=== PATIENT | female | born 1945 | race Hispanic/Latino ===

== ENCOUNTER → 2017-09-13 14:15 | Outpatient (CLI) | payer OTHER, SELFPAY | PROVIDERS: Family Provider Physician Assistant; PCP Physician Assistant; Visit Provider Physician Assistant | DX: R10.2 Pelvic and perineal pain (principal); R10.9 Unspecified abdominal pain; R14.0 Abdominal distension (gaseous) | CPT/HCPCS: 87086 ==

== ENCOUNTER → 2017-09-26 07:31 | Outpatient (CLI) | payer OTHER, SELFPAY ==
--- NOTE | 2017-09-26 07:35 | DI.US.S_ITS ---
PROCEDURE: US ABDOMEN COMPLETE INDICATIONS: BLOATING TECHNIQUE: Real-time scanning was performed of the abdominal and retroperitoneal organs, with image documentation. COMPARISON: None. FINDINGS: Liver: Liver is normal in size and homogeneous in echotexture, moderately hyperechoic consistent with fatty infiltration. Gallbladder: The gallbladder appears normal. Biliary ducts: Intrahepatic bile ducts are non-dilated. Extrahepatic bile duct caliber measures 8.3 mm. Normal is 6-7 mm or less in diameter, or 10 mm or less post-cholecystectomy. Pancreas: Visualized portions of the pancreas are sonographically normal. Spleen: Spleen is normal in size and homogeneous in echotexture. Kidneys: Kidneys are normal in size and echotexture. Right kidney measures 10.4 cm long; left kidney measures 10.1 cm long. No hydronephrosis or nephrolithiasis. No solid masses. Aorta: Visualized aorta is normal in caliber at less than 3 cm. Iliacs: Not seen due to bowel gas IVC: Intrahepatic inferior vena cava is patent. Miscellaneous: No free abdominal fluid. IMPRESSION: The common bile duct at 8.3 mm and is mildly above the upper limits of normal for a patient with known prior cholecystectomy. Follow up assessment for liver function tests may be warranted given this appearance. Nonvisualization of the iliac arteries due to bowel gas. Dictated by: Jim Andrade M.D. on 09/26/2017 at 8:27 Approved by: Jim Andrade M.D. on 09/26/2017 at 8:30
--- NOTE | 2017-09-26 07:35 | DI.US.S_ITS ---
PROCEDURE: US PELVIC COMPLETE INDICATIONS: BLOATING TECHNIQUE: Real-time scanning was performed of the pelvic organs, with image documentation. Additional endovaginal scanning was necessary due to incomplete visualization of the adnexal and endometrial structures by transabdominal scanning. COMPARISON: None. FINDINGS: Transabdominal scanning: Limited scanning through the kidneys shows no hydronephrosis. No pathologic free abdominal or pelvic fluid. Endovaginal scanning: Uterus: Uterus is normal in size at 5.5 x 2.6 x 4.4 cm. The endometrium measures 2.0 mm in combined thickness. 1.0 x 0.5 x 1.5 cm solid-appearing rounded endometrial mass present suspicious retained blood products, endometrial polyp or other neoplastic process. 6 mm posterior intramural fibroid. Ovaries: Normal ovaries bilaterally. No intraperitoneal fluid seen or adnexal masses. IMPRESSION: 1. 1.1 cm solid-appearing endometrial mass present which may represent retained blood products, although endometrial polyp or other neoplastic processes cannot be excluded. Recommend short-term followup pelvic ultrasound in 6 weeks to assess for interval resolution. If the mass persists, pre and post contrast gynecologic protocol MRI could be performed or alternatively hysterosonography for further characterization. 2. 6 mm intramural fibroid. Dictated by: Júnior MARTINEZ Interpreted: Hetal Peck MD on 09/26/2017 at 9:19 Approved by: Hetal Peck MD, PhD on 09/26/2017 at 13:49
== END ==
PROVIDERS: Family Provider Physician Assistant; PCP Physician Assistant; Visit Provider Physician Assistant
DX: R14.0 Abdominal distension (gaseous) (principal); D25.1 Intramural leiomyoma of uterus; Z90.49 Acquired absence of other specified parts of digestive tract; N85.9 Noninflammatory disorder of uterus, unspecified; R10.2 Pelvic and perineal pain; R10.10 Upper abdominal pain, unspecified
CPT/HCPCS: 76700; 76830; 76856

== ENCOUNTER → 2017-10-04 08:54 | Outpatient (CLI) | payer OTHER, SELFPAY ==
[2017-10-04 09:00] LABS: Bacteria Urine None Seen; RBC Urine None Seen (0-5/HPF)
[2017-10-04 12:30] LABS: Appearance Urine UA CLEAR; Bilirubin Urine UA NEGATIVE (NEGATIVE); Color Urine UA YELLOW; Glucose Urine UA NEGATIVE (Normal); Ketones Urine UA NEGATIVE (NEGATIVE); Leukocyte Esterase Urine UA NEGATIVE (NEGATIVE); Nitrite Urine UA Negative (Negative); Occult Blood Urine UA NEGATIVE (Negative); Protein Urine UA NEGATIVE (Negative); Urobilinogen Urine UA 0.2 E.U./dL (0.2)
[2017-10-04 12:59] LABS: Squamous Epithelial Cell Urine 0-1 /HPF; WBC Urine 0-1/HPF (0-5/HPF)
[2017-10-04 13:00] LABS: Culture Indicated Urine Cult Not Indicated
== END ==
PROVIDERS: PCP Physician Assistant; Visit Provider Obstetrics & Gynecology
DX: R10.2 Pelvic and perineal pain (principal); R32 Unspecified urinary incontinence; R33.9 Retention of urine, unspecified
CPT/HCPCS: 81001

== ENCOUNTER → 2017-10-16 11:36 | Outpatient (CLI) | payer OTHER, SELFPAY | PROVIDERS: Family Provider Physician Assistant; PCP Physician Assistant; Visit Provider Physician Assistant | DX: R30.0 Dysuria (principal) | CPT/HCPCS: 87086 ==

== ENCOUNTER → 2017-10-17 13:00 | Outpatient (CLI) | payer OTHER, SELFPAY | PROVIDERS: PCP Physician Assistant | DX: Z23 Encounter for immunization (principal) | CPT/HCPCS: 90471; 90662 ==

== ENCOUNTER → 2017-10-27 13:55 | Outpatient (CLI) | payer OTHER, SELFPAY ==
--- NOTE | 2017-10-27 | DI.MG.S_ITS ---
BILATERAL DIGITAL SCREENING MAMMOGRAM 3D/2D WITH CAD: 10/27/2017 CLINICAL: Routine screening. Comparison is made to exams dated: 02/29/2016 mammogram, 01/26/2015 mammogram, and 01/17/2014 mammogram - [facility]. There are scattered fibroglandular elements in both breasts. Current study was also evaluated with a Computer Aided Detection (CAD) system. No significant masses, calcifications, or other findings are seen in either breast. There has been no significant interval change. IMPRESSION: NEGATIVE There is no mammographic evidence of malignancy. A 1 year screening mammogram is recommended. This exam was interpreted at Station ID: [id number]. NOTE: For mammograms, a report in lay terms will be sent to the patient. Approximately 15% of breast malignancies will not be visualized mammographically. In the management of a palpable breast mass, a negative mammogram must not discourage biopsy of a clinically suspicious lesion. Electronically Signed By: Sara billings/louise:10/27/2017 15:08:23 letter sent: Normal Exam ACR BI-RADS Category 1: Negative [id number]
== END ==
PROVIDERS: Family Provider Physician Assistant; PCP Physician Assistant; Visit Provider Physician Assistant
DX: Z12.31 Encounter for screening mammogram for malignant neoplasm of breast (principal)
CPT/HCPCS: 77063; 77067

== ENCOUNTER → 2017-12-01 10:08 | Day surgery (SDC) | payer OTHER, SELFPAY ==
[2017-11-27 13:39] VITALS: BMI 40.6
--- NOTE | 2018-02-16 10:08 | PM.HP.1 ---
History of Present Illness Date Patient Seen: 12/01/17 Time Patient Seen: 11:15 Chief complaint: [place] [id number] Narrative: Patient is a 72-year-old with a uterine mass by ultrasound here for a D&C hysteroscopy and resection of mass Patient History Medical History Colitis (Acute) Endometrial mass (Acute) History of headache (Acute) Morbid obesity (Acute) Pelvic pain (Acute) Postmenopausal (Acute) Cataract, left eye (Chronic ~05/2012) GERD (gastroesophageal reflux disease) (Chronic Unknown) Hemorrhoids (Chronic) Hx of varicose veins (Chronic Unknown) Hypothyroidism (Chronic Unknown) IBS (irritable bowel syndrome) (Chronic Unknown) Migraines (Chronic Unknown) Positive PPD (Chronic Unknown) Surgical History Hx of surgical procedure (Resolved 02/2017) Family & Social History Tobacco & Substance use: Smoking Status Never smoker alcohol intake never Meds Home Medications Medication Instructions Recorded Confirmed Type Homeopathic Substance (PASSION 250 mg PO PRN PRN #0 01/03/12 01/04/18 History FLOWER) levothyroxine 112 mcg PO Q DAY #90 tab 05/29/17 01/04/18 Rx ibuprofen 800 mg tablet 800 mg PO Q8H #90 tab 10/18/17 01/04/18 Rx codeine 10 mg-guaifenesin 100 mg/5 5 ml PO BEDTIME PRN #120 ml 11/08/17 01/04/18 Rx mL oral liquid pneumococcal 13-makayla conj 0.5 ml IM X1 #1 ea 11/20/17 01/04/18 Rx vaccine-dip crm (PF) 0.5 mL IM syringe varicella-zoster glycoE vacc-AS01B 50 mcg IM ONCE #1 each 11/20/17 01/04/18 Rx adj(PF) 50 mcg/0.5 mL IM susp, kit ondansetron 4 mg PO PRN 12/05/17 01/04/18 History hydrochlorothiazide 25 mg tablet 25 mg PO DAILY #30 tab 01/31/18 Rx Allergies Allergy/AdvReac Type Severity Reaction Status Date / Time oxycodone AdvReac Severe tremors, Verified 01/04/18 11:25 numbness, itching metronidazole AdvReac Mild DIZZINESS Unverified 01/04/18 10:30 Exam Vital Signs (past 8 hours): HEENT: No thyromegaly, no anterior cervical or supraclavicular lymphadenopathy. Lungs:Clear to auscultation bilaterally, no wheezes. Cardiovascular: Regular rate and rhythm, no murmurs, rubs, or gallops. Abdomen: No scars. No hepatosplenomegaly. No masses palpable. External genitalia: Normal Vagina: Normal Cervix: Normal Bimanual exam: 7 Week size uterus. Mobile. Rectal: No masses. Assessment & Plan (1) Uterine mass: Current visit: No Status: Acute Plan: Assessment/Plan Narrative: Assessment: 72 year with a uterine mass by ultrasound Plan: D&C hysteroscopy with resection of mass The risks, benefits, and alternatives to the procedure were explained to the patient. The risks including bleeding, infection, and uterine perforation. She understands these risks and agrees to proceed. A full PAR-Q was held and consent form was signed.
== END ==
PROVIDERS: Family Provider Physician Assistant; PCP Physician Assistant; Visit Provider Obstetrics & Gynecology

== ENCOUNTER 2017-12-08 09:47 | Day surgery (SDC) | payer OTHER, SELFPAY ==
[2017-12-05 08:17] VITALS: BMI 40.5
[2017-12-08] VITALS (7 sets, daily range): BP systolic 133–182; BP diastolic 70–107; PULSE 65–100; RESP 16–20; TEMP 36.3–37.1; O2SAT 92–97; BMI 39.9
--- NOTE | 2017-12-08 | PATH_ITS ---
[facility] Accession Number: [id number] . 01 Material submitted: . ENDOMETRIAL POLYPS . 02 Diagnosis: Endometrial Polyps: Fragments of endometrium with extensive cautery artifact, cannot exclude endometrial polyp. Fragments of myometrium with features suggestive of leiomyoma. No evidence of atypical hyperplasia or malignancy. MRV/12/11/2017 . 02 Electronically signed: . Gautam Cook MD, PhD, Pathologist NPI- [id number] . 01 Gross description: . Received one formalin-filled container, labeled with the patient's name and labeled endometrial polyps. The specimen consists of approximately a 0.5 cc aggregate of tissue and mucoid material. Filtered, wrapped and entirely submitted in one cassette. ([facility]:[id number]) /MRV . 02 Pathologist provided ICD-10: N84.0 . 02 CPT . 273215 Specimen Comment: A duplicate report has been generated due to demographic updates. Performed at: 01 [facility] [address] [facility], [place], [place] [id number] MD Brendon Hoyt MD Phone: [phone] Performed at: 02 [facility] [address] [place], [place] [id number] MD Tray Koehler MD Phone: [phone]
--- NOTE | 2017-12-08 10:21 | SUR.PREOP ---
Language barrier noted. Able to answer most questions, but difficulty with some. Not a reliable historian.
[2017-12-08] MEDS: LACTATED RINGERS 1,000 ML 100 ML IV (10:24)
[2017-12-08] MEDS: FAMOTIDINE 20 MG/50 ML PIGGYBACK 200 MG IV (10:53)
--- NOTE | 2017-12-08 11:10 | SUR.OPER ---
Lithotomy on padded OR bed, head on pillow, arms secured on padded arm boards at <90 degrees abduction. Legs secured in padded yellow fins stirrups.
--- NOTE | 2017-12-08 11:46 | SUR.PHASEI ---
report given to Tracy Gallardo RN
[2017-12-08] MEDS: fentaNYL 100 MCG/2 ML INJ 25 MCG IV ×4 (11:55→12:10)
--- NOTE | 2017-12-11 09:50 | PM.PREOP ---
Pre-operative Note Interval Note Pre-op Check: Yes History & Physical Reviewed by Physician Changes: No
--- NOTE | 2017-12-11 09:51 | PM.GYNOP.1 ---
Procedure: Procedures Operation Date: 12/08/17 11:15 Actual Procedures Side Surgeon p Hysteroscopy D&C-Resection of mass Chantal Blackwell MD D&C Hysteroscopy with resection of polyps Indications: Pelvic pain Uterine mass on ultrasound Surgeon: Chantal Blackwell Anesthesia Type: General Operative Notes Findings: 8 week size anteverted uterus 2 uterine polyps on the anterior wall Arcuate uterus Closure Type: not applicable Specimen(s): other (Uterine polyp) Applied: catheter (In and out) Estimated blood loss (mL): 10 Blood products transfused: none Procedure in detail: After informed consent was obtained, the patient was taken to the operating room where she was placed in the dorsal supine position. After adequate LMA general anesthesia was achieved, she was placed in the dorsal lithotomy position, and prepped and draped in the usual sterile fashion. A bivalve speculum was placed into the vagina and the anterior lip of the cervix grasped with a single-tooth tenaculum. The cervical os was sequentially dilated until the hysteroscope could pass easily into the endometrial cavity. Initial inspection with the hysteroscope revealed 2 polyps in the right portion of the uterus on the anterior uterine wall. Patient had an arcuate uterus with a wide septum coming down in the middle. The left side of the uterus had no polyps. The hysteroscope was removed. The cervix was further dilated to the #9 Hegar dilator. The resectoscope passed easily into the endometrial cavity. Both polyps were resected. Hemostasis was achieved. Settings were 60 cut and 40 cautery. The resectoscope was removed from the uterus. The polyp forceps were used to remove the polyp pieces from the uterus. These were all sent to pathology. There was minimal amount of bleeding from the uterus. The single-tooth tenaculum was removed from the anterior lip of the cervix. The bivalve speculum was removed from the vagina. Sponge, lap, and instrument counts were correct x2. Patient tolerated the procedure well, and was taken to PACU in stable condition. Complications: none Post-operative Condition: stable Disposition: PACU Plan for aftercare: Home after recovery
--- NOTE | 2017-12-11 09:55 | P.OP_ITS ---
Procedure: Procedures Operation Date: 12/08/17 11:15 Actual Procedures Side Surgeon p Hysteroscopy D&C-Resection of mass Chantal Blackwell MD D&C Hysteroscopy with resection of polyps Indications: Pelvic pain Uterine mass on ultrasound Surgeon: Chantal Blackwell Anesthesia Type: General Operative Notes Findings: 8 week size anteverted uterus 2 uterine polyps on the anterior wall Arcuate uterus Closure Type: not applicable Specimen(s): other (Uterine polyp) Applied: catheter (In and out) Estimated blood loss (mL): 10 Blood products transfused: none Procedure in detail: After informed consent was obtained, the patient was taken to the operating room where she was placed in the dorsal supine position. After adequate LMA general anesthesia was achieved, she was placed in the dorsal lithotomy position, and prepped and draped in the usual sterile fashion. A bivalve speculum was placed into the vagina and the anterior lip of the cervix grasped with a single-tooth tenaculum. The cervical os was sequentially dilated until the hysteroscope could pass easily into the endometrial cavity. Initial inspection with the hysteroscope revealed 2 polyps in the right portion of the uterus on the anterior uterine wall. Patient had an arcuate uterus with a wide septum coming down in the middle. The left side of the uterus had no polyps. The hysteroscope was removed. The cervix was further dilated to the # 9 Hegar dilator. The resectoscope passed easily into the endometrial cavity. Both polyps were resected. Hemostasis was achieved. Settings were 60 cut and 40 cautery. The resectoscope was removed from the uterus. The polyp forceps were used to remove the polyp pieces from the uterus. These were all sent to pathology. There was minimal amount of bleeding from the uterus. The single- tooth tenaculum was removed from the anterior lip of the cervix. The bivalve speculum was removed from the vagina. Sponge, lap, and instrument counts were correct x2. Patient tolerated the procedure well, and was taken to PACU in stable condition. Complications: none Post-operative Condition: stable Disposition: PACU Plan for aftercare: Home after recovery
--- NOTE | 2018-02-16 11:01 | PM.HP.1 ---
History of Present Illness Date Patient Seen: 12/08/17 Time Patient Seen: 11:00 Chief complaint: d&c hysteroscopy [id number] Narrative: Patient is a 72-year-old who presents for D&C hysteroscopy with resection of uterine mass seen on ultrasound. Patient History Medical History Colitis (Acute) Endometrial mass (Acute) History of headache (Acute) Morbid obesity (Acute) Pelvic pain (Acute) Postmenopausal (Acute) Cataract, left eye (Chronic ~05/2012) GERD (gastroesophageal reflux disease) (Chronic Unknown) Hemorrhoids (Chronic) Hx of varicose veins (Chronic Unknown) Hypothyroidism (Chronic Unknown) IBS (irritable bowel syndrome) (Chronic Unknown) Migraines (Chronic Unknown) Positive PPD (Chronic Unknown) Surgical History Hx of surgical procedure (Resolved 02/2017) Family & Social History Social History: household members family Tobacco & Substance use: Smoking Status Never smoker alcohol intake never Meds Home Medications Medication Instructions Recorded Confirmed Type Homeopathic Substance (PASSION 250 mg PO PRN PRN #0 01/03/12 01/04/18 History FLOWER) levothyroxine 112 mcg PO Q DAY #90 tab 05/29/17 01/04/18 Rx ibuprofen 800 mg tablet 800 mg PO Q8H #90 tab 10/18/17 01/04/18 Rx codeine 10 mg-guaifenesin 100 mg/5 5 ml PO BEDTIME PRN #120 ml 11/08/17 01/04/18 Rx mL oral liquid pneumococcal 13-makayla conj 0.5 ml IM X1 #1 ea 11/20/17 01/04/18 Rx vaccine-dip crm (PF) 0.5 mL IM syringe varicella-zoster glycoE vacc-AS01B 50 mcg IM ONCE #1 each 11/20/17 01/04/18 Rx adj(PF) 50 mcg/0.5 mL IM susp, kit ondansetron 4 mg PO PRN 12/05/17 01/04/18 History hydrochlorothiazide 25 mg tablet 25 mg PO DAILY #30 tab 01/31/18 Rx Allergies Allergy/AdvReac Type Severity Reaction Status Date / Time oxycodone AdvReac Severe tremors, Verified 01/04/18 11:25 numbness, itching metronidazole AdvReac Mild DIZZINESS Unverified 01/04/18 10:30 Exam Vital Signs (past 8 hours): Oxygen Delivery Method Room Air Narrative Exam Narrative: HEENT: No thyromegaly, no anterior cervical or supraclavicular lymphadenopathy. Lungs:Clear to auscultation bilaterally, no wheezes. Cardiovascular: Regular rate and rhythm, no murmurs, rubs, or gallops. Abdomen: No scars. No hepatosplenomegaly. No masses palpable. External genitalia: Normal Vagina: Normal Cervix: Normal Bimanual exam: 7 Week size uterus. Mobile. Rectal: No masses]. Assessment & Plan (1) Uterine mass: Current visit: No Status: Acute Plan: Assessment/Plan Narrative: Assessment: 72-year-old with a uterine mass on ultrasound Plan: D&C hysteroscopy with resection of mass The risks, benefits, and alternatives to the procedure were explained to the patient. The risks including bleeding, infection, and uterine perforation. She understands these risks and agrees to proceed. A full PAR-Q was held and consent form was signed.
== END 2017-12-08 12:49 | disposition home or self-care (01) ==
PROVIDERS: PCP Physician Assistant; Visit Provider Obstetrics & Gynecology
PROC: 0UDB8ZZ Extraction of Endometrium, Via Natural or Artificial Opening Endoscopic (ICD-10-PCS; CPT 58558; principal; 2017-12-08 11:15)
DX: R10.2 Pelvic and perineal pain (principal); R93.89 Abnormal findings on diagnostic imaging of other specified body structures; N84.0 Polyp of corpus uteri; E66.9 Obesity, unspecified; E03.9 Hypothyroidism, unspecified; K21.9 Gastro-esophageal reflux disease without esophagitis
CPT/HCPCS: 58558; J0330; J1100; J1885; J2405; J2704; J3010

== ENCOUNTER → 2018-05-23 17:53 | Outpatient (CLI) | payer OTHER, SELFPAY ==
[2018-05-23 19:43] LABS: Alanine Aminotransferase 58 IU/L (9-52); Albumin 4.4 g/dL (3.5-5.0); Albumin Globulin Ratio 1.5 (1.0-2.8); Alkaline Phosphatase 116 U/L (38-126); Aspartate Aminotransferase 43 IU/L (14-36); BUN Creatinine Ratio 42.9 (6-22); Bilirubin Total 0.4 mg/dL (0.2-1.3); Blood Urea Nitrogen 30 mg/dL (7-17); Calcium 9.3 mg/dL (8.4-10.2); Carbon Dioxide 26 mmol/L (22-32); Chloride 107 mmol/L (98-107); Cholesterol 159 mg/dL (140-199); Estimated Glomerular Filt Rate > 60.0 mL/min (>60); Glucose 103 mg/dL (80-110); HDL Cholesterol 39 mg/dL (40-60); HEMOLYSIS < 15 (0-50); LDL Cholesterol Calculated 69 mg/dL (<100); Potassium 4.6 mmol/L (3.4-5.1); Sodium 143 mmol/L (137-145); Total Protein 7.4 g/dL (6.3-8.2); Triglycerides 255 mg/dL (35-150)
[2018-05-23 20:13] LABS: Thyroid Stimulating Hormone 1.73 uIU/mL (0.47-4.68)
== END ==
PROVIDERS: PCP Physician Assistant; Visit Provider Physician Assistant
DX: E03.9 Hypothyroidism, unspecified (principal); E66.01 Morbid (severe) obesity due to excess calories; Z13.220 Encounter for screening for lipoid disorders; Z13.6 Encounter for screening for cardiovascular disorders; Z68.41 Body mass index [BMI] 40.0-44.9, adult
CPT/HCPCS: 36415; 80053; 80061; 84443

== ENCOUNTER → 2018-06-04 09:03 | Outpatient (CLI) | payer OTHER, SELFPAY ==
[2018-06-05 16:35] LABS: Creatinine Urine Random 49.7 mg/dL
[2018-06-05 17:03] LABS: Microalbumin Urine Random < 0.6 mg/dL (0-1.6)
== END ==
PROVIDERS: PCP Physician Assistant; Visit Provider Physician Assistant
DX: R79.89 Other specified abnormal findings of blood chemistry (principal); R79.9 Abnormal finding of blood chemistry, unspecified
CPT/HCPCS: 82043; 82570

== ENCOUNTER → 2018-11-01 14:30 | Outpatient (CLI) | payer OTHER, SELFPAY ==
[2018-11-01 14:46] LABS: Bacteria Urine None Seen; WBC Urine None Seen (0-5/HPF)
[2018-11-01 15:32] LABS: Add Manual Diff / Slide Review NO; Basophils Absolute Auto 100 /uL (0-100); Basophils Percent Auto 0.7 % (0-2); Eosinophils Absolute Auto 400 /uL (0-450); Eosinophils Percent Auto 4.3 % (2-4); Hematocrit 42.6 % (36-46); Hemoglobin 14.5 g/dL (12.0-16.0); Lymphocytes Absolute Auto 2300 /uL (1100-4500); Lymphocytes Percent Auto 27.8 % (25-40); Mean Corpuscular HGB Conc 34.1 % (30-36); Mean Corpuscular Hemoglobin 28.6 PG (26-34); Mean Corpuscular Volume 84.1 fL (80-100); Monocytes Absolute Auto 800 /uL (0-900); Monocytes Percent Auto 9.5 % (3-14); Neutrophils Absolute Auto 4700 /uL (1500-7000); Neutrophils Percent Auto 57.7 % (50-75); Platelet Count 222 X10^3/uL (150-400); Red Blood Cell Count 5.07 X10^6/uL (4.0-5.2); Red Cell Distribution Width 14.4 % (11.6-14.8); White Blood Cell Count 8.2 X10^3/uL (4.5-11.0)
[2018-11-01 15:32] LABS: Appearance Urine UA CLEAR; Bilirubin Urine UA NEGATIVE (NEGATIVE); Color Urine UA YELLOW; Glucose Urine UA NEGATIVE (Negative); Ketones Urine UA NEGATIVE (NEGATIVE); Leukocyte Esterase Urine UA NEGATIVE (NEGATIVE); Nitrite Urine UA NEGATIVE (Negative); Occult Blood Urine UA TRACE-LYSED (Negative); Protein Urine UA NEGATIVE (Negative); Urobilinogen Urine UA 0.2 E.U./dL (0.2)
[2018-11-01 15:33] LABS: pH Urine UA 5.5 (4.5-8.0)
[2018-11-01 15:35] LABS: Culture Indicated Urine Cult Not Indicated; RBC Urine 5-10/HPF (0-5/HPF); Squamous Epithelial Cell Urine 1-5 /HPF (0-5/HPF)
[2018-11-01 16:02] LABS: Alanine Aminotransferase 57 IU/L (9-52); Albumin 4.3 g/dL (3.5-5.0); Albumin Globulin Ratio 1.3 (1.0-2.8); Alkaline Phosphatase 98 U/L (38-126); Amylase 74 U/L (30-110); Aspartate Aminotransferase 42 IU/L (14-36); BUN Creatinine Ratio 38.3 (6-22); Bilirubin Total 0.5 mg/dL (0.2-1.3); Blood Urea Nitrogen 23 mg/dL (7-17); Calcium 9.7 mg/dL (8.4-10.2); Carbon Dioxide 29 mmol/L (22-32); Chloride 101 mmol/L (98-107); Estimated Glomerular Filt Rate > 60.0 mL/min (>60); Globulin 3.2 g/dL (1.7-4.1); Glucose 92 mg/dL (80-110); HEMOLYSIS < 15 (0-50); Lipase 129 U/L (23-300); Potassium 3.9 mmol/L (3.4-5.1); Sodium 142 mmol/L (137-145); Total Protein 7.5 g/dL (6.3-8.2)
== END ==
PROVIDERS: PCP Physician Assistant; Visit Provider Nurse Practitioner Family
DX: Z00.00 Encounter for general adult medical examination without abnormal findings (principal); R10.11 Right upper quadrant pain; R10.30 Lower abdominal pain, unspecified
CPT/HCPCS: 36415; 80053; 81001; 82150; 83690; 85025

== ENCOUNTER → 2018-11-14 08:14 | Outpatient (CLI) | payer OTHER, SELFPAY ==
--- NOTE | 2018-11-14 08:14 | DI.US.S_ITS ---
PROCEDURE: US ABDOMEN COMPLETE INDICATIONS: PAIN TECHNIQUE: Real-time scanning was performed of the abdominal and retroperitoneal organs, with image documentation. COMPARISON: [place], [place], HEPATOBILIARY IMAGING, 03/04/2010, 11:17. [facility], , US ABDOMEN COMPLETE, 09/26/2017, 7:39. FINDINGS: Liver: The liver demonstrates normal size. The liver demonstrates generalized increased echogenicity. This decreases ultrasound sensitivity for detection of hepatic masses. Gallbladder: No findings of gallstones or sludge are seen. The gallbladder wall is not thickened, measuring 3 mm or less. No specific pericholecystic fluid is seen. The sonographic Fox sign is negative. Biliary ducts: Biliary dilatation is again seen, with the common bile measuring 9 mm. Normal is 6-7 mm or less in diameter, or 10 mm or less post-cholecystectomy. Pancreas: Visualized portions of the pancreas are sonographically normal. Spleen: Spleen is normal in size and homogeneous in echotexture. Kidneys: Kidneys are normal in size and echotexture. Right kidney measures 11.4 cm long; left kidney measures 11.5 cm long. No hydronephrosis or nephrolithiasis. No solid masses. Aorta: Visualized aorta is normal in caliber at less than 3 cm. Iliacs: Not seen, obscured by overlying bowel gas. IVC: Intrahepatic inferior vena cava is patent. Miscellaneous: No free abdominal fluid. IMPRESSION: Biliary dilatation is again seen, which is similar to the prior 2018 ultrasound examination, with the common bile duct now measuring 9 mm. As clinically appropriate, an MRCP could be considered for further evaluation (assuming that there is no contraindication to MRI). The gallbladder demonstrates a normal sonographic appearance. The liver demonstrates increased echogenicity. This finding is nonspecific, yet it is most commonly attributed to fatty infiltration. Dictated by: Tomasz Jara M.D. on 11/14/2018 at 8:13 Approved by: Tomasz Jara M.D. on 11/14/2018 at 8:14
== END ==
PROVIDERS: PCP Physician Assistant; Visit Provider Nurse Practitioner Family
DX: R10.11 Right upper quadrant pain (principal); K83.8 Other specified diseases of biliary tract
CPT/HCPCS: 76700

== ENCOUNTER → 2018-11-22 09:45 | Outpatient (CLI) | payer OTHER, SELFPAY ==
--- NOTE | 2018-11-22 09:46 | DI.MRI.S_ITS ---
PROCEDURE: MR ABDOMEN WO CON INDICATIONS: MRCP, recommended due to abnormal US TECHNIQUE: Coronal HASTE through the abdomen, axial 2-D FLASH in- and [id number], and breath-hold T2 FSE with fat saturation through the biliary system and pancreas. Oblique coronal and axial thin-slice HASTE, radial thick-slab HASTE centered on the extrahepatic bile ducts. COMPARISON: Abdominal ultrasound 11/14/2018, 09/26/2017. CT abdomen pelvis 03/21/2014. FINDINGS: Image quality: Excellent. Pancreas and biliary system: No significant extrahepatic ductal dilatation. CBD measures 8 mm and tapers distally. No filling defects identified. No intrahepatic ductal dilatation. Pancreas is normal in morphology, without adjacent soft tissue edema. Pancreatic duct is normal in caliber. Gallbladder is nondilated. No gallstones seen. Other solid organs: Liver is normal in size. Signal dropout on the opposed phase consistent with hepatic steatosis. Spleen is normal in size. No adrenal nodules. Both kidneys are normal in size, without hydronephrosis. Small cyst in left kidney is unchanged. Nodes and vessels: No retroperitoneal or mesenteric adenopathy by size criteria. Aorta and inferior vena cava are normal in size. Bowel and peritoneum: Unenhanced bowel loops are normal in caliber. No free fluid. Lung bases: No basal pleural effusions. Heart size is normal. Bones and soft tissues: No ventral hernias. Bone marrow is of normal overall signal. IMPRESSION: 1. Mild prominence of the CBD measuring 8 mm. No intrahepatic ductal dilatation and the distal extrahepatic duct tapers as expected. 2. No pancreatic ductal dilatation. 3. No gallstones. 4. Hepatic steatosis. Dictated by: Ronnell Chappell M.D. on 11/22/2018 at 14:15 Approved by: Ronnell Chappell M.D. on 11/22/2018 at 14:25
== END ==
PROVIDERS: PCP Physician Assistant; Visit Provider Nurse Practitioner Family
DX: R10.11 Right upper quadrant pain (principal); R93.5 Abnormal findings on diagnostic imaging of other abdominal regions, including retroperitoneum; K76.0 Fatty (change of) liver, not elsewhere classified
CPT/HCPCS: 74181

== ENCOUNTER → 2019-01-01 09:00 | Outpatient (CLI) | payer OTHER, SELFPAY ==
[2019-01-06 07:27] LABS: ANA Screen, IFA NEGATIVE (NEGATIVE)
[2019-01-06 08:26] LABS: Hepatitis A Antibody IgM NONREACTIVE; Hepatitis Acute Panel Interp 0.01; Hepatitis B Core Antibody IgM NONREACTIVE; Hepatitis B Surface Antigen NONREACTIVE; Hepatitis C Antibody NONREACTIVE
== END ==
PROVIDERS: Family Provider Physician Assistant; PCP Physician Assistant; Visit Provider Nurse Practitioner Family
DX: Z01.84 Encounter for antibody response examination (principal)
CPT/HCPCS: 36415; 80074; 86038; 86255; 86376

== ENCOUNTER 2019-01-08 09:37 | Day surgery (SDC) | payer OTHER, SELFPAY ==
[2019-01-08] VITALS (8 sets, daily range): BP systolic 124–160; BP diastolic 63–89; PULSE 63–80; RESP 12–16; TEMP 36–36.3; O2SAT 93–97; BMI 41.7
--- NOTE | 2019-01-08 | PATH_ITS ---
[facility] Accession Number: [id number] . 01 Material submitted: . gastrointestinal site - GASTRIC INFLAMMATION BIOPSIES . 02 Diagnosis: Stomach, Biopsies: Gastric body mucosa with mild chronic inflammation. Negative for Helicobacter organism by immunohistochemistry. Negative for intestinal metaplasia. Negative for dysplasia or malignancy. MRV 01/10/2019 1403 Local . 02 Electronically signed: . Gautam Cook MD, PhD, Pathologist NPI- [id number] . 01 Gross description: . GASTRIC INFLAMMATION BIOPSIES: Received in formalin are 3 fragment(s) of tamayo, soft tissue measuring 0.1 x 0.1 x 0.1 cm to 0.2 x 0.2 x 0.1 cm submitted entirely in 1 cassette(s) /[facility] 01/08/2019 2233 Local . 02 Microscopic: . An immunohistochemical stain was performed to evaluate for Helicobacter organisms and is negative. The control stain showed appropriate reactivity. . * This test was developed and its performance characteristics determined by [facility]. It has not been cleared or approved by the U.S. Food and Drug Administration. The FDA has determined that such clearance or approval is not necessary. This test is used for clinical purposes. It should not be regarded as investigational or for research. . 02 Pathologist provided ICD-10: K29.70 . 02 CPT . 116046, T93408 Performed at: 01 [facility] [address] [place] [address], [place], [place] [id number] MD Brendon Hoyt MD Phone: [phone] Performed at: 02 [facility] [place] [address] [place], [place] [id number] MD Edie Cedillo MD Phone: [phone]
[2019-01-08] MEDS: SODIUM CHLORIDE 0.9% 1,000 ML 200 ML IV (10:38)
--- NOTE | 2019-01-08 10:55 | PM.PREOP ---
Pre-operative Note Interval Note History & Physical reviewed/Exam performed by Physician: Yes Changes to H&P: No ASA Class (for procedural sedation): II
--- NOTE | 2019-01-08 11:14 | PM.OP.ENDO ---
Operative Date/Time/Diagnoses Date of procedure: 01/08/19 Time of procedure: 11:14 Pre-op diagnosis: Left upper abdominal pain Post-op diagnosis: same (Discrete area of gastric inflammation. Biopsies taken.) Procedure & Clinicians Study performed: EGD with cold biopsy Same procedure as scheduled: Yes Indications: Diagnostic test to determine, if possible, cause of patient's upper abdominal pain Surgeon: Paul Frank Procedure Notes SCOAP/Timeout: Performed Procedure in detail: The patient had topical anesthetic applied to oropharynx. She was placed in left lateral decubitus position and underwent IV sedation directed by the surgeon consisting of fentanyl and Versed. A bite block was inserted and the scope was advanced through it into the esophagus. The esophagus was unremarkable. GE junction was noted at 36 cm from the incisors. The stomach insufflated well. There were no lesions seen in the body, antrum or at the incisura. The pyloric channel was patent. The duodenum was unremarkable to the 3rd part. The scope was brought back into the stomach and retroflexed. The proximal stomach was remarkable for discrete area of inflammation which I biopsied.. The scope was straightened and brought out through the esophagus again. No lesions were seen. The scope was removed and the patient tolerated the procedure well. No hiatal hernia seen Scope withdrawal time: Not applicable Sedation minutes: 9 Findings: gastritis Specimen(s): other (Gastric biopsies) Complications: none Post-procedure Recommendations: Continue medication(s) Plan for aftercare: Will consider performing CCK HIDA scan Follow up: weeks (Two) Disposition: PACU
[2019-01-08] MEDS: LIDOCAINE 4% SOLN 50 ML 20 ML TOP (11:15)
[2019-01-08] MEDS: MIDAZOLAM 5 MG/5 ML VIAL IV (11:16)
[2019-01-08] MEDS: fentaNYL 250 MCG/5 ML INJ IV (11:16)
== END 2019-01-08 12:28 | disposition home or self-care (01) ==
PROVIDERS: Family Provider Physician Assistant; PCP Physician Assistant; Visit Provider Specialist
PROC: 0DJ08ZZ Inspection of Upper Intestinal Tract, Via Natural or Artificial Opening Endoscopic (ICD-10-PCS; CPT 43235; principal; 2019-01-08 10:45)
DX: K29.70 Gastritis, unspecified, without bleeding (principal); K21.9 Gastro-esophageal reflux disease without esophagitis
CPT/HCPCS: 43239; 99152; J2250; J3010

== ENCOUNTER → 2019-01-15 10:25 | Outpatient (CLI) | payer OTHER, SELFPAY | PROVIDERS: PCP Physician Assistant | DX: Z23 Encounter for immunization (principal) | CPT/HCPCS: 90471; 90682 ==

== ENCOUNTER 2019-06-11 14:39 | Emergency (ER) | payer OTHER, SELFPAY ==
[2019-06-11 14:42] VITALS: BP 150/89; PULSE 101; RESP 15; TEMP 35.3; O2SAT 96; BMI 41.3
--- NOTE | 2019-06-11 15:19 | ED.GENADULT ---
HPI - General Adult General Chief complaint: Eye Problems Stated complaint: Can't see out of Left Eye without meds Time Seen by Provider: 06/11/19 14:43 Source: patient Mode of arrival: Ambulatory Limitations: no limitations History of Present Illness HPI narrative: Patient here for work note to continue time off due to medical condition of her left eye. She has been evaluated by an round up ring hand last week June 03 for 1 month complaint watery left eye. Two years ago in [place], patient states she had cataract surgery. She was seen by primary care office June 02 of last week and was diagnosed with giant cell arteritis and placed on steroid. Patient did see Dr. Jordan, Optometry, the following day and was informed it was not giant cell arteritis, and it was recurrence of her cataracts. He directed her to contact her water resources project manager in [place].. She did contact the ophthalmology office, [facility] and they will see her as soon as the social distancing ban due to coronavirus allows to see her Patient states she is here to extend her work release instructions, Dr. Jordan had given her 8 days off of work. There is no light duty work, she works here in the hospital, housekeeping. He had instructed her to no heavy lifting or anything that would induce pressure to the left eye. She denies any new problems or complaints the left eye. Only here for extending work release note decreased vision loss and blurry visions it is not not not new Related Data Home Medications Medication Instructions Recorded Confirmed Homeopathic Substance (PASSION 250 mg PO PRN PRN #0 01/03/12 06/03/19 FLOWER) pantoprazole 20 mg tablet,delayed 20 mg PO DAILY tab 07/05/18 06/03/19 release Previous Rx's Medication Instructions Recorded levothyroxine 112 mcg tablet 112 mcg PO Q DAY #90 tab 11/19/18 Massage Therapy 1 each TOPICAL .[id number] #24 each 01/14/19 methocarbamol 750 mg tablet 750 mg PO BEDTIME #30 tab 01/14/19 hydrocortisone 2.5 % topical cream 1 applictn VA QD-BID PRN #30 gram 03/13/19 with perineal applicator ibuprofen 800 mg tablet See Rx Instructions .ROUTE 04/23/19 .COMPLEX #90 tablet prednisone 5 mg tablet 5 mg PO DAILY #30 tab 06/03/19 prednisone 50 mg tablet 50 mg PO DAILY #30 tab 06/03/19 hydrochlorothiazide 25 mg tablet 25 mg PO DAILY PRN #90 tab 06/07/19 Allergies Allergy/AdvReac Type Severity Reaction Status Date / Time oxycodone AdvReac Severe tremors, Verified 06/11/19 14:49 numbness, itching metronidazole AdvReac Mild DIZZINESS Verified 06/11/19 14:49 Review of Systems Review of Systems Narrative: GENERAL: Denies chills, fatigue, malaise, fever, sweats. HEENT: Denies sinus pain, ear pain, sore throat, difficulty swallowing, dizziness. Has continued left eye drainage and decreased vision RESPIRATORY: Denies dyspnea, cough, wheezing, hemoptysis, sputum. CARDIOVASCULAR: Denies chest pain, palpitations, orthopnea, edema, GASTROINTESTINAL: Denies nausea, vomiting, abdominal pain, diarrhea, constipation, melena. : Denies dysuria, frequency, incontinence, hematuria, urinary retention. MUSCULOSKELETAL: denies weakness, joint pain, or bony pain SKIN: Denies rash, skin lesions, or other NEUROLOGIC: Denies weakness, headache, numbness, change in speech, confusion, seizures, incoordination. PSYCHIATRIC: No concerning psychosocial issues. ROS Unobtainable: All systems reviewed & are unremarkable except as noted in HPI and below Patient History Medical History Cataract, left eye (Chronic ~05/2012) Colitis (Acute) Endometrial mass (Acute) GERD (gastroesophageal reflux disease) (Chronic Unknown) Hemorrhoids (Chronic) History of headache (Acute) Hx of varicose veins (Chronic Unknown) Hypothyroidism (Chronic Unknown) IBS (irritable bowel syndrome) (Chronic Unknown) Migraines (Chronic Unknown) Morbid obesity (Acute) Pelvic pain (Acute) Positive PPD (Chronic Unknown) Postmenopausal (Acute) Temporal pain (Acute) Surgical History Hx of surgical procedure (Resolved 02/2017) Family History Brother Other specified diabetes mellitus with unspecified complications Father Cancer Mother Cancer Sister Cancer Social History household members: family Smoking Status: Never smoker second hand exposure: Yes (only when I go to the casino, but I go to the non-smoking area.) alcohol intake: never substance use type: does not use Smoking Status: Never smoker Exam Narrative Exam Narrative: GENERAL: patient appears stated age. Well-nourished, well-developed patient, in no distress, not toxic HEAD: Atraumatic. Normocephalic. EYES: Mild erythema with watery tearing of the left eye. Patient in no distress. NEURO: AOx3. Initial Vital Signs Initial Vital Signs: Vital Signs Temperature 95.6 F L 06/11/19 14:42 Pulse Rate 101 H 06/11/19 14:42 Respiratory Rate 15 06/11/19 14:42 Blood Pressure 150/89 H 06/11/19 14:42 Pulse Oximetry 96 06/11/19 14:42 Course Consultations Consultation #1: Spoke with family physician office Dr. Chavez Bingham, he will inform his nurse practitioner Светлана heredia tomorrow to continue work note after this week. Vital Signs Vital signs: Vital Signs - 8 hr 06/11/19 14:42 Temperature 95.6 F L Pulse Rate 101 H Respiratory Rate 15 Blood Pressure 150/89 H Pulse Oximetry 96 Medical Decision Making MDM Narrative Medical decision making narrative: No slit lamp or Wood's lamp indicated this time. Has been already been evaluated by round up ring hand, no changes since visit. Only here for work note continuation Discharge Plan Departure Patient Disposition: Home Clinical Impression: Encounter for medical screening examination Discharge Date/Time: 06/11/19 17:01 Instructions: DI for Eye Pain Activity Restrictions/Additional Instructions: See family doctor this week for continued time off work note. See your water resources project manager for cataract surgery as planned. Return if worse. Prescriptions: No Action Homeopathic Substance (PASSION FLOWER) 250 mg PO PRN PRN (Reason: Anxiety) Qty: 0 RF: 0 levothyroxine 112 mcg tablet 112 mcg PO Q DAY Qty: 90 RF: 3 hydrocortisone [Proctozone-HC] 2.5 % cream with perineal applicator 1 applictn VA QD-BID PRN (Reason: hemorrhoids) Qty: 30 RF: 3 ibuprofen 800 mg tablet See Rx Instructions .ROUTE .COMPLEX Qty: 90 RF: 0 hydrochlorothiazide 25 mg tablet 25 mg PO DAILY PRN (Reason: edema) Qty: 90 RF: 1 prednisone 50 mg tablet 50 mg PO DAILY Qty: 30 RF: 1 prednisone 5 mg tablet 5 mg PO DAILY Qty: 30 RF: 0 pantoprazole 20 mg tablet,delayed release (DR/EC) 20 mg PO DAILY RF: 0 Massage Therapy 1 each topical .[id number] Qty: 24 RF: 0 methocarbamol 750 mg tablet 750 mg PO BEDTIME Qty: 30 RF: 1 Referrals: Nell Cobian PA-C [Primary Care Provider] - Stand Alone Forms: Work Release Note
== END 2019-06-11 17:01 | disposition home or self-care (01) ==
PROVIDERS: Emergency Provider Emergency Medicine; PCP Physician Assistant
DX: H53.8 Other visual disturbances (principal)
CPT/HCPCS: 99281

== ENCOUNTER → 2019-10-18 13:52 | Outpatient (CLI) | payer OTHER, SELFPAY ==
[2019-10-18 16:04] LABS: Alanine Aminotransferase 58 IU/L (<35); Albumin 4.3 g/dL (3.5-5.0); Albumin Globulin Ratio 1.4 (1.0-2.8); Alkaline Phosphatase 82 U/L (38-126); Aspartate Aminotransferase 43 IU/L (14-36); BUN Creatinine Ratio 31.3 (6-22); Bilirubin Total 0.6 mg/dL (0.2-1.3); Blood Urea Nitrogen 25 mg/dL (7-17); Calcium 8.9 mg/dL (8.4-10.2); Carbon Dioxide 27 mmol/L (22-32); Chloride 105 mmol/L (98-107); Cholesterol 148 mg/dL (140-199); Estimated Glomerular Filt Rate > 60.0 mL/min (>60); Globulin 3.1 g/dL (1.7-4.1); Glucose 99 mg/dL (80-110); HDL Cholesterol 40 mg/dL (40-60); HEMOLYSIS < 15 (0-50); LDL Cholesterol Calculated 64 mg/dL (<100); Potassium 4.2 mmol/L (3.4-5.1); Sodium 142 mmol/L (137-145); Total Protein 7.4 g/dL (6.3-8.2); Triglycerides 218 mg/dL (35-150)
[2019-10-18 16:31] LABS: Thyroid Stimulating Hormone 1.54 uIU/mL (0.47-4.68)
[2019-10-18 19:23] LABS: Creatinine Urine Random 46.3 mg/dL
[2019-10-18 19:28] LABS: Microalbumin Urine Random < 0.6 mg/dL (0-1.6)
== END ==
PROVIDERS: PCP Nurse Practitioner; Referring Provider Nurse Practitioner; Visit Provider Nurse Practitioner
DX: E03.9 Hypothyroidism, unspecified (principal); I10 Essential (primary) hypertension; Z79.899 Other long term (current) drug therapy
CPT/HCPCS: 36415; 80053; 80061; 82043; 82570; 84443

== ENCOUNTER → 2019-11-21 01:27 | Outpatient (CLI) | payer OTHER, SELFPAY | PROVIDERS: PCP Nurse Practitioner; Referring Provider Internal Medicine; Visit Provider Internal Medicine | DX: Z23 Encounter for immunization (principal) | CPT/HCPCS: 90471; 90682 ==

== ENCOUNTER → 2019-12-13 13:54 | Outpatient (CLI) | payer OTHER, SELFPAY ==
[2019-12-16 07:45] LABS: COVID19 Sendout Not Detected (Not Detect)
== END ==
PROVIDERS: PCP Nurse Practitioner; Referring Provider Physician Assistant; Visit Provider Physician Assistant
DX: Z11.59 Encounter for screening for other viral diseases (principal)
CPT/HCPCS: 87635

== ENCOUNTER 2019-12-24 09:55 | Emergency (ER) | payer OTHER, SELFPAY ==
[2019-12-24] VITALS (12 sets, daily range): BP systolic 135–172; BP diastolic 64–79; PULSE 57–97; RESP 16–25; TEMP 36.7; O2SAT 94–99; BMI 42.6
[2019-12-24 10:37] LABS: Add Manual Diff / Slide Review NO; Basophils Absolute Auto 100 /uL (0-100); Basophils Percent Auto 0.8 % (0-2); Eosinophils Absolute Auto 400 /uL (0-450); Eosinophils Percent Auto 4.8 % (2-4); Hematocrit 45.1 % (36-46); Hemoglobin 14.7 g/dL (12.0-16.0); Lymphocytes Absolute Auto 2200 /uL (1100-4500); Lymphocytes Percent Auto 29.5 % (25-40); Mean Corpuscular HGB Conc 32.6 % (30-36); Mean Corpuscular Hemoglobin 27.4 PG (26-34); Monocytes Absolute Auto 700 /uL (0-900); Monocytes Percent Auto 9.7 % (3-14); Neutrophils Absolute Auto 4100 /uL (1500-7000); Neutrophils Percent Auto 55.2 % (50-75); Platelet Count 204 X10^3/uL (150-400); Red Blood Cell Count 5.37 X10^6/uL (4.0-5.2); White Blood Cell Count 7.4 X10^3/uL (4.5-11.0)
[2019-12-24 10:41] LABS: INR 1.1 (0.9-1.3); Prothrombin Time 12.1 SECONDS (10.1-12.7)
[2019-12-24 10:44] LABS: PTT Partial Thromboplastin Tim 31 SECONDS (26.4-36.2)
[2019-12-24 10:45] LABS: Alanine Aminotransferase 79 IU/L (<35); Albumin 4.4 g/dL (3.5-5.0); Albumin Globulin Ratio 1.3 (1.0-2.8); Alkaline Phosphatase 80 U/L (38-126); Aspartate Aminotransferase 60 IU/L (14-36); BUN Creatinine Ratio 35.6 (6-22); Bilirubin Total 0.8 mg/dL (0.2-1.3); Blood Urea Nitrogen 21 mg/dL (7-17); Calcium 9.1 mg/dL (8.4-10.2); Carbon Dioxide 29 mmol/L (22-32); Chloride 105 mmol/L (98-107); Estimated Glomerular Filt Rate > 60.0 mL/min (>60); Globulin 3.5 g/dL (1.7-4.1); Glucose 103 mg/dL (80-110); HEMOLYSIS 21 (0-50); Lipase 115 U/L (23-300); Potassium 3.9 mmol/L (3.4-5.1); Sodium 140 mmol/L (137-145); Total Protein 7.9 g/dL (6.3-8.2)
[2019-12-24 11:18] LABS: Bacteria Urine None Seen; RBC Urine None Seen (0-5/HPF)
[2019-12-24 11:22] LABS: WBC Urine 1-5/HPF (0-5/HPF)
[2019-12-24 11:23] LABS: Culture Indicated Urine Cult Not Indicated; Squamous Epithelial Cell Urine 5-10 /HPF (0-5/HPF); Transitional Epi Cells Urine 1-5/HPF (0-5/HPF)
--- NOTE | 2019-12-24 11:48 | ED.ABDPAIN ---
HPI - Abdominal Pain General Chief Complaint: Abdominal Pain Stated Complaint: lower pain in front and back, gas Time Seen by Provider: 12/24/19 11:16 Source: patient Mode of arrival: Wheelchair Limitations: no limitations History of Present Illness HPI narrative: This is a 74-year-old female who comes to the emergency department with complaint of abdominal pain. She describes it as being sort of anterior as well as posterior lower back and rectal. She states that it is worst with bowel movements, she states that she has sort of a ball of stool but it is softer when she has a bowel movement. She has not noticed any black or bloody stool. She has not had any fevers or chills. No nausea, no vomiting. She states that she has not had any urinary symptoms, no frequency urgency or dysuria. She did have some symptoms about 2 weeks ago. Patient has not had any shortness of breath, she denies any chest pain or pressure. She states that every single morning she wakes up with heartburn but she takes her PPI and it improves. She has been told in the past that she has had colitis, and sounds like she may have been told she has celiac disease or at least a gluten sensitivity. The chart notes IBS type symptoms. She has stopped eating gluten. She did eat some food that did have with on Monday but she states typically when she has an exposure she only has a day worth of symptoms and then it resolved. She does take medication for thyroid. She has had an EGD x1 and colonoscopy x2. She has also had a hysteroscopy and resection of uterine polyps in 2018. Had an MRCP in November of 2018 which showed mild prominence of the CBD but no other ductal dilation or other changes. She denies any other surgeries, no tobacco, alcohol or illicit. Related Data Previous Rx's Medication Instructions Recorded ibuprofen 800 mg tablet See Rx Instructions .ROUTE 09/25/19 .COMPLEX #90 tablet levothyroxine 112 mcg tablet 112 mcg PO Q DAY #90 tab 12/16/19 dicyclomine 20 mg PO QID PRN #20 tab 12/24/19 docusate sodium [Colace] 100 mg PO DAILY #20 cap 12/24/19 Allergies Allergy/AdvReac Type Severity Reaction Status Date / Time oxycodone AdvReac Severe tremors, Verified 12/24/19 10:07 numbness, itching metronidazole AdvReac Mild DIZZINESS Verified 12/24/19 10:07 Review of Systems Review of Systems ROS Unobtainable: All systems reviewed & are unremarkable except as noted in HPI and below Patient History Medical History Abnormal [id number] ratio Cataract, left eye (~05/2012) Colitis Elevated blood pressure reading in office without diagnosis of hypertension Elevated BUN Endometrial mass GERD (gastroesophageal reflux disease) (Unknown) Hemorrhoids History of headache Hx of varicose veins (Unknown) Hypertension Hypertriglyceridemia Hypothyroidism (Unknown) IBS (irritable bowel syndrome) (Unknown) Left eye pain Left shoulder pain Left upper quadrant pain Low back pain Lower urinary tract symptoms (LUTS) Migraines (Unknown) Morbid obesity Muscle spasm Pelvic pain Positive PPD (Unknown) Postmenopausal Right upper quadrant abdominal pain (10/29/18) Sleep pattern disturbance Temporal pain Upper respiratory infection, viral Uterine mass Uterine mass Surgical History Hx of surgical procedure (02/2017) Family History Brother Other specified diabetes mellitus with unspecified complications Father Cancer Mother Cancer Sister Cancer Social History household members: family Smoking Status: Never smoker second hand exposure: Yes (only when I go to the casino, but I go to the non-smoking area.) alcohol intake: never substance use type: does not use Smoking Status: Never smoker alcohol intake frequency: other Substance Use Type: does not use Exam Narrative Exam Narrative: GENERAL: Alert and oriented x three, obese female in mild to moderate distress. HEENT: Head normocephalic, atraumatic, EOMI, pupils reactive, face symmetric, moist mucous membranes NECK: Supple, full range of motion CARDIOVASCULAR: Regular rate and rhythm without murmurs, rubs or gallops. RESPIRATORY: Breath sounds equal bilaterally, no wheezes rales or rhonchi. ABDOMEN: Soft, positive for suprapubic lower abdominal discomfort bilaterally.. Normoactive bowel sounds all 4 quadrants. No guarding or rebound, rigidity, no mass, stool occult is negative. Patient has 1 small external hemorrhoid which is nontender. She has internal hemorrhoid difficult to tell if she is tender or if she has increased discomfort with rectal exam. She does have some stool at the rectal vault. : No CVA tenderness EXTREMITIES: Normal range of motion, no clubbing or edema. Neurovascularly intact NEUROLOGICAL: Cranial nerves II through XII grossly intact. Moving all extremities SKIN: Warm, dry, no petechiae, no rashes or lesions. Initial Vital Signs Initial Vital Signs: Vital Signs Temperature 98.0 F 12/24/19 10:00 Pulse Rate 97 H 12/24/19 10:00 Respiratory Rate 16 12/24/19 10:00 Blood Pressure 172/79 H 12/24/19 10:00 Pulse Oximetry 95 12/24/19 10:00 Course Orders Ordered: ED Orders 12/24/19 10:25 Complete Blood Count AUTO DIFF Stat Comprehensive Metabolic Panel Stat Lipase Stat Partial Thromboplastin Time Stat Prothrombin Time INR Stat 12/24/19 11:00 EKG-12 Lead Stat 12/24/19 11:17 Urine Microscopic Stat 12/24/19 11:52 Procalcitonin Stat 12/24/19 11:55 CT abdomen pelvis w con Stat Discontinued Medications Sodium Chloride (Normal Saline 0.9%) 1,000 mls @ 150 mls/hr IV CONT TAWNY Last Infusion: 12/24/19 13:11 Dose: 150 mls/hr Documented by: Admin: 12/24/19 12:44 Dose: 150 mls/hr Documented by: ROHINI Ketorolac Tromethamine (Ketorolac 60 Mg/2 Ml Vial) 15 mg IV NOW ONE Stop: 12/24/19 11:49 Last Admin: 12/24/19 12:44 Dose: 15 mg Documented by: ROHINI Vital Signs Vital signs: Vital Signs - 8 hr 12/24/19 11:30 12/24/19 11:31 12/24/19 12:05 Pulse Rate 72 71 75 Respiratory Rate 19 23 Blood Pressure 152/76 H Pulse Oximetry 96 98 12/24/19 12:06 12/24/19 12:30 12/24/19 13:00 Pulse Rate 73 67 57 L Respiratory Rate 23 22 20 Blood Pressure 144/68 H 146/67 H Pulse Oximetry 99 97 95 12/24/19 13:01 Pulse Rate 58 L Respiratory Rate 19 Blood Pressure 135/73 Pulse Oximetry 95 MDM - Abdominal Pain Lab Data Attestation: I reviewed the patient's lab results. Result diagrams: 12/24/19 10:25 12/24/19 10:25 Labs: Lab Results 12/24/19 12/24/19 12/24/19 Range/Units 10:25 10:25 10:25 WBC 7.4 (4.5-11.0) X10^3/uL RBC 5.37 H (4.0-5.2) X10^6/uL Hgb 14.7 (12.0-16.0) g/dL Hct 45.1 (36-46) % MCV 84.0 (80-100) fL MCH 27.4 (26-34) PG MCHC 32.6 (30-36) % RDW 15.0 H (11.6-14.8) % Plt Count 204 (150-400) X10^3/uL Neut % (Auto) 55.2 (50-75) % Lymph % (Auto) 29.5 (25-40) % [place] % (Auto) 9.7 (3-14) % Eos % (Auto) 4.8 H (2-4) % Baso % (Auto) 0.8 (0-2) % Neut # (Auto) 4100 (7843-7194) /uL Lymph # (Auto) 2200 (1211-8714) /uL [place] # (Auto) 700 (0-900) /uL Eos # (Auto) 400 (0-450) /uL Baso # (Auto) 100 (0-100) /uL PT 12.1 (10.1-12.7) SECONDS INR 1.1 (0.9-1.3) APTT 31 (26.4-36.2) SECONDS Sodium 140 (137-145) mmol/L Potassium 3.9 (3.4-5.1) mmol/L Chloride 105 (98-107) mmol/L Carbon Dioxide 29 (22-32) mmol/L BUN 21 H (7-17) mg/dL Creatinine 0.59 (0.52-1.04) mg/dL Estimated GFR > 60.0 (>60) mL/min BUN/Creatinine Ratio 35.6 H (6-22) Glucose 103 (80-110) mg/dL Calcium 9.1 (8.4-10.2) mg/dL Total Bilirubin 0.8 (0.2-1.3) mg/dL AST 60 H (14-36) IU/L ALT 79 H (<35) IU/L Alkaline Phosphatase 80 (38-126) U/L Total Protein 7.9 (6.3-8.2) g/dL Albumin 4.4 (3.5-5.0) g/dL Globulin 3.5 (1.7-4.1) g/dL Albumin/Globulin Ratio 1.3 (1.0-2.8) Lipase 115 (23-300) U/L Procalcitonin (<0.5) ng/mL Urine RBC (0-5/HPF) Urine WBC (0-5/HPF) Ur Squamous Epith Cells (0-5/HPF) Ur Transition Epith Cell (0-5/HPF) Urine Bacteria (None) Ur Culture Indicated? 12/24/19 12/24/19 Range/Units 11:17 11:52 WBC (4.5-11.0) X10^3/uL RBC (4.0-5.2) X10^6/uL Hgb (12.0-16.0) g/dL Hct (36-46) % MCV (80-100) fL MCH (26-34) PG MCHC (30-36) % RDW (11.6-14.8) % Plt Count (150-400) X10^3/uL Neut % (Auto) (50-75) % Lymph % (Auto) (25-40) % [place] % (Auto) (3-14) % Eos % (Auto) (2-4) % Baso % (Auto) (0-2) % Neut # (Auto) (6899-9441) /uL Lymph # (Auto) (3463-9527) /uL [place] # (Auto) (0-900) /uL Eos # (Auto) (0-450) /uL Baso # (Auto) (0-100) /uL PT (10.1-12.7) SECONDS INR (0.9-1.3) APTT (26.4-36.2) SECONDS Sodium (137-145) mmol/L Potassium (3.4-5.1) mmol/L Chloride (98-107) mmol/L Carbon Dioxide (22-32) mmol/L BUN (7-17) mg/dL Creatinine (0.52-1.04) mg/dL Estimated GFR (>60) mL/min BUN/Creatinine Ratio (6-22) Glucose (80-110) mg/dL Calcium (8.4-10.2) mg/dL Total Bilirubin (0.2-1.3) mg/dL AST (14-36) IU/L ALT (<35) IU/L Alkaline Phosphatase (38-126) U/L Total Protein (6.3-8.2) g/dL Albumin (3.5-5.0) g/dL Globulin (1.7-4.1) g/dL Albumin/Globulin Ratio (1.0-2.8) Lipase (23-300) U/L Procalcitonin < 0.05 (<0.5) ng/mL Urine RBC None seen (0-5/HPF) Urine WBC 1-5/hpf (0-5/HPF) Ur Squamous Epith Cells 5-10 /hpf H (0-5/HPF) Ur Transition Epith Cell 1-5/hpf (0-5/HPF) Urine Bacteria None seen (None) Ur Culture Indicated? Cult not indicated Point of care testing: Urine Dip Bedside Urine Glucose Negative Bedside Urine Bilirubin - Negative Bedside Urine Ketone - Negative Urine Specific [place] 1.015 Bedside Urine Occult Blood - Negative Bedside Urine pH 6.5 Bedside Urine Protein - Negative Bedside Urine Urobilinogen - Negative Bedside Urine Nitrite - Negative Bedside Urine Leukocytes + [address] scan - abdomen/pelvis: Radiologist's Impression: [address] [id number] Scan ReportSigned Patient: Natalya Granados R#: [id number]: 8Acct:[id number]/Sex: 74 / FDate of Service: 12/24/19Loc: EDAccession Number: [id number] Procedure: CT abdomen pelvis w con Ordering Provider: Myrna Ferrari D.O. PROCEDURE: CT ABDOMEN PELVIS W CON INDICATIONS: anterior/posterior abd pain, rectal pain. TECHNIQUE: After the administration of intravenous contrast, 5 mm thick sections acquired from the diaphragm to the symphysis. 5 mm coronal and sagittal reformats were acquired. For radiation dose reduction, the following was used: automated exposure control, adjustment of mA and/or kV according to patient size. COMPARISON: [facility], CT, ABDOMEN/PELVIS WITH CONTRAST, 12/04/2009, 8:38. [facility], CT, ABDOMEN/PELVIS WITH CONTRAST, 03/21/2014, 0:50. FINDINGS: Image quality: Excellent. ABDOMEN: Lung bases: Lung bases are clear. Heart size is normal. Solid organs: There is mild hepatic steatosis. Liver is normal in size and enhancement. Gallbladder is normal. Biliary system is non dilated. Pancreas enhances normally. Spleen is normal in size and enhancement. No adrenal nodules. Kidneys demonstrate normal size and enhancement, without hydronephrosis. A 2 mm nonobstructing stone is seen in the inferior pole of the left kidney. There is a 1.8 cm exophytic cortical nodule in the superior pole of the left kidney, most likely a cyst. Peritoneum and bowel: Appendix is normal. Bowel loops demonstrate normal wall thickness and caliber. There are scattered colonic diverticula. No CT findings to suggest acute diverticulitis. No free fluid or air. Nodes and vessels: No retroperitoneal or mesenteric adenopathy by size criteria. Aorta and inferior vena cava are normal in size. Mild atherosclerosis. Miscellaneous: A tiny fat containing umbilical hernia is noted. PELVIS: Genitourinary: Bladder wall thickness is normal. Uterus and ovaries are normal. No adnexal mass. Miscellaneous: No inguinal hernias or adenopathy. Bones: No suspicious bony lesions. No vertebral body compression fractures. Degenerative changes in lumbar spine. IMPRESSION: 1. No acute abnormalities in the abdomen or pelvis. 2. Diverticulosis without diverticulitis. 3. Hepatic steatosis. 4. A 2 mm non obstructing stone in left kidney. No hydronephrosis. Dictated by: Anthony Stanford M.D. on 12/24/2019 at 12:24 Approved by: Anthony Stanford M.D. on 12/24/2019 at 12:40 ECG Data Attestation: I personally reviewed and interpreted this ECG as follows: Prior ECG tracings: not available for review Interpretation: Sinus rhythm with marked sinus arrhythmia, rate of 69, P are 172, QRS of 78 QTC of 447. Patient does appear to have a P-wave with every QRS complex. MDM Narrative Medical decision making narrative: Patient has abdominal pain with no CT changes, no major lab abnormalities with lft's stable from prior. No signs of infection at this time. Discussed with patient plan to try Bentyl, her pain is improved after Toradol. Would like her to follow up with her primary care if she may need repeat colonoscopy and we discussed that she has felt constipated recently to try a stool softener. Discharge Plan Departure Patient Disposition: Home Clinical Impression: Abdominal pain Instructions: DI for Abdominal Pain-Adult Activity Restrictions/Additional Instructions: Follow-up with your physician for recheck. Your liver enzymes are slightly elevated but this is consistent with prior labs and not a major change. We may check a taking Bentyl as prescribed this may be helpful for pain. I would also recommend a stool softener if you are having constipation, I would recommend Colace 1-2 tablets once daily. Continue your home medications as prescribed. Return to the ER for fevers, worsening abdominal pain, persistent vomiting, black or bloody stools, lightheadedness, passing out, difficulty with urination or other new or concerning symptoms Prescriptions: New dicyclomine 20 mg tablet 20 mg PO QID PRN (Reason: abdominal pain) Qty: 20 RF: 0 docusate sodium [Colace] 100 mg capsule 100 mg PO DAILY Qty: 20 RF: 0 No Action levothyroxine 112 mcg tablet 112 mcg PO Q DAY Qty: 90 RF: 2 ibuprofen 800 mg tablet See Rx Instructions .ROUTE .COMPLEX Qty: 90 RF: 1 Referrals: Светлана Hilliard ARNP [Primary Care Provider] - Stand Alone Forms: Work Release Note
--- NOTE | 2019-12-24 11:55 | DI.CT.S_ITS ---
PROCEDURE: CT ABDOMEN PELVIS W CON INDICATIONS: anterior/posterior abd pain, rectal pain. TECHNIQUE: After the administration of intravenous contrast, 5 mm thick sections acquired from the diaphragm to the symphysis. 5 mm coronal and sagittal reformats were acquired. For radiation dose reduction, the following was used: automated exposure control, adjustment of mA and/or kV according to patient size. COMPARISON: [facility], CT, ABDOMEN/PELVIS WITH CONTRAST, 12/04/2009, 8:38. [facility], CT, ABDOMEN/PELVIS WITH CONTRAST, 03/21/2014, 0:50. FINDINGS: Image quality: Excellent. ABDOMEN: Lung bases: Lung bases are clear. Heart size is normal. Solid organs: There is mild hepatic steatosis. Liver is normal in size and enhancement. Gallbladder is normal. Biliary system is non dilated. Pancreas enhances normally. Spleen is normal in size and enhancement. No adrenal nodules. Kidneys demonstrate normal size and enhancement, without hydronephrosis. A 2 mm nonobstructing stone is seen in the inferior pole of the left kidney. There is a 1.8 cm exophytic cortical nodule in the superior pole of the left kidney, most likely a cyst. Peritoneum and bowel: Appendix is normal. Bowel loops demonstrate normal wall thickness and caliber. There are scattered colonic diverticula. No CT findings to suggest acute diverticulitis. No free fluid or air. Nodes and vessels: No retroperitoneal or mesenteric adenopathy by size criteria. Aorta and inferior vena cava are normal in size. Mild atherosclerosis. Miscellaneous: A tiny fat containing umbilical hernia is noted. PELVIS: Genitourinary: Bladder wall thickness is normal. Uterus and ovaries are normal. No adnexal mass. Miscellaneous: No inguinal hernias or adenopathy. Bones: No suspicious bony lesions. No vertebral body compression fractures. Degenerative changes in lumbar spine. IMPRESSION: 1. No acute abnormalities in the abdomen or pelvis. 2. Diverticulosis without diverticulitis. 3. Hepatic steatosis. 4. A 2 mm non obstructing stone in left kidney. No hydronephrosis. Dictated by: Anthony Stanford M.D. on 12/24/2019 at 12:24 Approved by: Anthony Stanford M.D. on 12/24/2019 at 12:40
[2019-12-24 12:23] LABS: Procalcitonin < 0.05 ng/mL (<0.5)
[2019-12-24] MEDS: SODIUM CHLORIDE 0.9% 1,000 ML 150 ML IV (12:44)
[2019-12-24] MEDS: KETOROLAC 60 MG/2 ML VIAL 15 MG IV (12:44)
== END 2019-12-24 13:12 | disposition home or self-care (01) ==
PROVIDERS: Emergency Provider Emergency Medicine; PCP Nurse Practitioner
DX: R10.9 Unspecified abdominal pain (principal); M54.5 Low back pain; K62.89 Other specified diseases of anus and rectum
CPT/HCPCS: 36415; 74177; 80053; 81003; 81015; 83690; 84145; 85025; 85610; 85730; 93005; 96374; 99281; 99284; J1885; Q9967

== ENCOUNTER → 2020-02-13 08:09 | Outpatient (CLI) | payer OTHER, SELFPAY ==
[2020-02-13 08:43] LABS: Add Manual Diff / Slide Review NO; Basophils Absolute Auto 100 /uL (0-100); Basophils Percent Auto 0.7 % (0-2); Eosinophils Absolute Auto 400 /uL (0-450); Eosinophils Percent Auto 6.3 % (2-4); Hematocrit 45.7 % (36-46); Hemoglobin 15.3 g/dL (12.0-16.0); Lymphocytes Absolute Auto 2400 /uL (1100-4500); Lymphocytes Percent Auto 34.5 % (25-40); Mean Corpuscular HGB Conc 33.6 % (30-36); Mean Corpuscular Volume 83.4 fL (80-100); Monocytes Absolute Auto 700 /uL (0-900); Monocytes Percent Auto 10.3 % (3-14); Neutrophils Absolute Auto 3400 /uL (1500-7000); Neutrophils Percent Auto 48.2 % (50-75); Platelet Count 211 X10^3/uL (150-400); Red Blood Cell Count 5.48 X10^6/uL (4.0-5.2); Red Cell Distribution Width 14.5 % (11.6-14.8); White Blood Cell Count 7.1 X10^3/uL (4.5-11.0)
[2020-02-13 08:57] LABS: Alanine Aminotransferase 53 IU/L (<35); Albumin 4.2 g/dL (3.5-5.0); Albumin Globulin Ratio 1.2 (1.0-2.8); Alkaline Phosphatase 80 U/L (38-126); Aspartate Aminotransferase 41 IU/L (14-36); BUN Creatinine Ratio 23.5 (6-22); Bilirubin Total 0.7 mg/dL (0.2-1.3); Blood Urea Nitrogen 16 mg/dL (7-17); Calcium 9.1 mg/dL (8.4-10.2); Carbon Dioxide 33 mmol/L (22-32); Chloride 103 mmol/L (98-107); Cholesterol 148 mg/dL (140-199); Estimated Glomerular Filt Rate > 60.0 mL/min (>60); Globulin 3.6 g/dL (1.7-4.1); Glucose 108 mg/dL (80-110); HDL Cholesterol 33 mg/dL (40-60); HEMOLYSIS < 15 (0-50); LDL Cholesterol Calculated 79 mg/dL (<100); Potassium 4.2 mmol/L (3.4-5.1); Sodium 139 mmol/L (137-145); Total Protein 7.8 g/dL (6.3-8.2); Triglycerides 179 mg/dL (35-150)
[2020-02-13 10:06] LABS: Thyroid Stimulating Hormone 2.31 uIU/mL (0.47-4.68)
== END ==
PROVIDERS: PCP Nurse Practitioner; Referring Provider Nurse Practitioner; Visit Provider Nurse Practitioner
DX: E03.9 Hypothyroidism, unspecified (principal); E78.1 Pure hyperglyceridemia; I10 Essential (primary) hypertension; R40.0 Somnolence
CPT/HCPCS: 36415; 80053; 80061; 84443; 85025

== ENCOUNTER → 2020-02-13 12:48 | Outpatient (CLI) | payer OTHER, SELFPAY ==
--- NOTE | 2020-02-13 12:49 | DI.MG.S_ITS ---
BILATERAL DIGITAL SCREENING MAMMOGRAM 3D/2D WITH CAD: 02/13/2020 CLINICAL: Routine screening. Comparison is made to exams dated: 10/27/2017 mammogram, 02/29/2016 mammogram, and 01/26/2015 mammogram - [facility]. There are scattered fibroglandular elements in both breasts. Current study was also evaluated with a Computer Aided Detection (CAD) system. No significant masses, calcifications, or other findings are seen in either breast. There has been no significant interval change. IMPRESSION: NEGATIVE There is no mammographic evidence of malignancy. A 1 year screening mammogram is recommended. This exam was interpreted at Station ID: [id number]. NOTE: For mammograms, a report in lay terms will be sent to the patient. Approximately 15% of breast malignancies will not be visualized mammographically. In the management of a palpable breast mass, a negative mammogram must not discourage biopsy of a clinically suspicious lesion. Electronically Signed By: Dangelo Franco acr/louise:02/13/2020 13:24:48 letter sent: Normal Exam ACR BI-RADS Category 1: Negative [id number]
== END ==
PROVIDERS: PCP Nurse Practitioner; Referring Provider Nurse Practitioner; Visit Provider Nurse Practitioner
DX: Z12.31 Encounter for screening mammogram for malignant neoplasm of breast (principal)
CPT/HCPCS: 77063; 77067

== ENCOUNTER → 2020-02-17 13:47 | Outpatient (CLI) | payer OTHER, SELFPAY ==
--- NOTE | 2020-02-17 13:48 | DI.US.S_ITS ---
PROCEDURE: US ABDOMEN COMPLETE INDICATIONS: LEFT UPPER QUADRANT PAIN TECHNIQUE: Real-time scanning was performed of the abdominal and retroperitoneal organs, with image documentation. COMPARISON: [facility], CT, CT ABDOMEN PELVIS W CON, 12/24/2019, 11:53. [facility], US, US ABDOMEN COMPLETE, 11/14/2018, 8:25. FINDINGS: Liver: The liver demonstrates normal size. The liver demonstrates generalized mildly increased echogenicity. This decreases ultrasound sensitivity for detection of hepatic masses. Gallbladder: No findings of gallstones or sludge are seen. The gallbladder wall is not thickened, measuring 3 mm or less. No specific pericholecystic fluid is seen. The sonographic Fox sign is negative. Biliary ducts: Intrahepatic bile ducts are non-dilated. Extrahepatic bile duct caliber measures 8 mm. Normal is 6-7 mm or less in diameter, or 10 mm or less post-cholecystectomy. Pancreas: Visualized portions of the pancreas are sonographically normal. Spleen: Spleen is normal in size and homogeneous in echotexture. Kidneys: Kidneys are normal in size and echotexture. Right kidney measures 10 cm long; left kidney measures 10 cm long. No hydronephrosis or nephrolithiasis. No solid masses. The left kidney demonstrates a mildly complicated cortical cyst, with low level internal echoes that measures up to 1.6 cm. Aorta: Visualized aorta is normal in caliber at less than 3 cm. Iliacs: Proximal common iliac arteries are normal in caliber at less than 2.5 cm. IVC: Intrahepatic inferior vena cava is patent. Miscellaneous: No free abdominal fluid. This study is limited by body habitus and bowel gas. IMPRESSION: No imaging explanation is found for this patient's presenting history of left upper quadrant pain. A mildly complicated left kidney cyst can be seen. Mild biliary dilatation is seen, which is similar to prior. The liver demonstrates increased echogenicity. This finding is nonspecific, yet it is most commonly attributed to fatty infiltration. Dictated by: Tomasz Jara M.D. on 02/17/2020 at 14:10 Approved by: Tomasz Jara M.D. on 02/17/2020 at 14:12
== END ==
PROVIDERS: PCP Nurse Practitioner; Referring Provider Nurse Practitioner; Visit Provider Nurse Practitioner
DX: R10.12 Left upper quadrant pain (principal); K21.9 Gastro-esophageal reflux disease without esophagitis; N28.1 Cyst of kidney, acquired; K83.8 Other specified diseases of biliary tract
CPT/HCPCS: 76700

== ENCOUNTER → 2020-05-19 14:12 | Outpatient (CLI) | payer OTHER, SELFPAY ==
[2020-05-19] MEDS: COVID-19 VACC #1, MRNA(MOD) 100 MCG/0.5 ML VIAL IM (14:21)
== END ==
PROVIDERS: PCP Nurse Practitioner; Visit Provider Internal Medicine
DX: Z23 Encounter for immunization (principal)
CPT/HCPCS: 0011A; 91301

== ENCOUNTER → 2020-06-17 14:31 | Outpatient (CLI) | payer OTHER, SELFPAY ==
[2020-06-17] MEDS: COVID-19 VACC #2, MRNA(MOD) 100 MCG/0.5 ML VIAL IM (14:41)
== END ==
PROVIDERS: PCP Nurse Practitioner; Visit Provider Internal Medicine
DX: Z23 Encounter for immunization (principal)
CPT/HCPCS: 0012A; 91301

== ENCOUNTER → 2020-09-12 15:40 | Outpatient (ROUT) | payer OTHER, SELFPAY ==
[2020-09-12 16:03] LABS: COVID19 -Nasal RAPID Negative (Negative)
== END ==
PROVIDERS: PCP Nurse Practitioner; Visit Provider Physician Assistant
DX: Z20.822 Contact with and (suspected) exposure to COVID-19 (principal)
CPT/HCPCS: 87635

== ENCOUNTER → 2020-09-19 09:28 | Outpatient (CLI) | payer OTHER, SELFPAY ==
[2020-09-19 10:05] LABS: COVID19 -Nasal RAPID POSITIVE (Negative)
== END ==
PROVIDERS: PCP Nurse Practitioner; Visit Provider Physician Assistant
DX: U07.1 COVID-19 (principal)
CPT/HCPCS: 87635

== ENCOUNTER → 2020-11-06 12:12 | Outpatient (CLI) | payer OTHER, SELFPAY ==
--- NOTE | 2020-11-06 | DI.US.S_ITS ---
PROCEDURE: US PERIPH VENOUS LOW EXTREM BI INDICATIONS: PAIN TECHNIQUE: Real-time imaging, as well as color and pulse Doppler interrogation, were performed of the deep veins of both legs from the inguinal ligament to the popliteal fossa. COMPARISON: None. FINDINGS: Right: The common femoral, femoral and popliteal veins are normally compressible, and free of intraluminal thrombus. Color and pulse Doppler demonstrate normal phasic intravascular flow. There is normal augmentation response to distal compression maneuver. Left: The common femoral, femoral and popliteal veins are normally compressible, and free of intraluminal thrombus. Color and pulse Doppler demonstrate normal phasic intravascular flow. There is normal augmentation response to distal compression maneuver. IMPRESSION: No evidence of deep vein thrombosis involving either the right or left lower extremities. Dictated by: Hetal Peck MD, PhD on 11/06/2020 at 14:22 Approved by: Hetal Peck MD, PhD on 11/06/2020 at 14:25
== END ==
PROVIDERS: PCP Nurse Practitioner; Referring Provider Nurse Practitioner; Visit Provider Nurse Practitioner
DX: I82.409 Acute embolism and thrombosis of unspecified deep veins of unspecified lower extremity (principal)
CPT/HCPCS: 93970

== ENCOUNTER → 2020-11-12 11:30 | Outpatient (CLI) | payer OTHER, SELFPAY | PROVIDERS: PCP Nurse Practitioner; Referring Provider Internal Medicine; Visit Provider Internal Medicine | DX: Z23 Encounter for immunization (principal) | CPT/HCPCS: 90471; 90682 ==

== ENCOUNTER → 2020-12-11 13:54 | Outpatient (CLI) | payer OTHER, SELFPAY ==
[2020-12-11] MEDS: COVID-19 VACC #3, MRNA(MOD) 50 MCG/0.25 ML VIAL IM (14:02)
== END ==
PROVIDERS: PCP Nurse Practitioner; Visit Provider Internal Medicine
DX: Z23 Encounter for immunization (principal)
CPT/HCPCS: 0013A; 91301

== ENCOUNTER 2021-06-06 11:10 | Emergency (ER) | payer OTHER, SELFPAY ==
[2021-06-06 11:10] VITALS: BP 178/86; PULSE 86; RESP 19; TEMP 37.7; O2SAT 97; BMI 39.8
--- NOTE | 2021-06-06 11:18 | DI.RAD.S_ITS ---
PROCEDURE: XR CHEST 1V INDICATIONS: Cough and congestion eval for pneumonia TECHNIQUE: One view of the chest was acquired. COMPARISON: [facility], RG, XR CXR 2 VIEW, 04/11/2005, 10:09. [facility], RG, XR CXR 2 VIEW, 08/22/2005, 9:57. FINDINGS: Surgical changes and devices: None. Lungs and pleura: An incomplete inspiratory result is noted, causing a crowded appearance to the lung markings. No focal infiltrates are seen. No pneumothorax or significant pleural effusions are seen. Mediastinum: Mediastinal contours appear normal. Heart size is normal. Bones and chest wall: No suspicious bony lesions. Age-appropriate bony degenerative changes are seen. Overlying soft tissues appear unremarkable. IMPRESSION: No focal infiltrates can be seen on this portable chest study. Dictated by: Tomasz Jara M.D. on 06/06/2021 at 10:41 Approved by: Tomasz Jara M.D. on 06/06/2021 at 10:42
--- NOTE | 2021-06-06 11:55 | ED.GENADULT ---
HPI - General Adult General Chief complaint: Upper Respiratory Symptoms Stated complaint: Cough, congestion, weakness x 4 days Time Seen by Provider: 06/06/21 11:17 Source: patient Mode of arrival: Ambulatory History of Present Illness HPI narrative: 76-year-old female who is here for evaluation of 4-5 days of cough and sinus congestion and sinus mucus. No fevers. Took 2 home COVID test both of which were negative. No shortness of breath. No vomiting. No rashes. Related Data Previous Rx's Medication Instructions Recorded dicyclomine 20 mg tablet 20 mg PO QID PRN #20 tab 12/24/19 docusate sodium 100 mg capsule 100 mg PO DAILY #20 cap 12/24/19 (Colace) levothyroxine 112 mcg tablet 112 mcg PO Q DAY #90 tab 07/27/20 omeprazole 20 mg capsule,delayed 20 mg PO DAILY #90 cap 07/27/20 release sodium,potassium,mag sulfates 17.5 See Rx Instructions PO .COMPLEX 09/16/20 gram-3.13 gram-1.6 gram oral soln #354 ml (Suprep Bowel Prep Kit) ibuprofen 800 mg tablet See Rx Instructions .ROUTE 02/15/21 .COMPLEX #90 tab cetirizine 10 mg capsule (Zyrtec) 10 mg PO DAILY PRN #90 cap 04/01/21 olopatadine 0.2 % eye drops 1 drp EYE-BOTH DAILY PRN #2.5 ml 04/01/21 (Pataday Once Daily Relief) hydrocortisone 2.5 % topical cream 1 applic PA QD-BID PRN #30 g 05/12/21 with perineal applicator (Procto-Med ) benzonatate 100 mg capsule 100 mg PO BID-TID PRN #20 cap 06/06/21 codeine 10 mg-guaifenesin 100 mg/5 5 ml PO Q6H PRN #237 ml 06/06/21 mL oral liquid (Guaifenesin AC) Allergies Allergy/AdvReac Type Severity Reaction Status Date / Time oxycodone AdvReac Severe tremors, Verified 04/01/21 10:34 numbness, itching metronidazole AdvReac Mild DIZZINESS Verified 04/01/21 10:34 Review of Systems Constitutional Constitutional: Reports as per HPI and Reports system reviewed and no additional complaints, except as documented ENT Ears, Nose, Mouth, and Throat: Reports system reviewed and no additional complaints, except as documented and Reports as per HPI Cardiovascular Cardiovascular: Reports as per HPI and Reports system reviewed and no additional complaints, except as documented Respiratory Respiratory: Reports as per HPI and Reports system reviewed and no additional complaints, except as documented Integumentary/Breasts Skin/Breast: Reports system reviewed and no additional complaints, except as documented Hematologic/Lymphatic On Anticoagulants: No Patient History Medical History Abnormal WUL-nr-fdeohityie ratio Cataract, left eye (~05/2012) Colitis Elevated blood pressure reading in office without diagnosis of hypertension Elevated BUN Endometrial mass Gas pain GERD (gastroesophageal reflux disease) (Unknown) Hemorrhoids History of headache Hx of varicose veins (Unknown) Hypertension Hypertriglyceridemia Hypothyroidism (Unknown) IBS (irritable bowel syndrome) (Unknown) Irritable bowel syndrome Left eye pain Left shoulder pain Left upper quadrant pain Low back pain Lower urinary tract symptoms (LUTS) Migraines (Unknown) Morbid obesity Muscle spasm Neck pain Pelvic pain Positive PPD (Unknown) Postmenopausal Right upper quadrant abdominal pain (10/29/18) Sleep pattern disturbance Temporal pain Upper respiratory infection, viral Uterine mass Uterine mass Surgical History Hx of surgical procedure (02/2017) Family History Brother Other specified diabetes mellitus with unspecified complications Father Cancer Mother Cancer Sister Cancer Social History household members: family Smoking Status: Never smoker second hand exposure: Yes (only when I go to the casino, but I go to the non-smoking area.) alcohol intake: never substance use type: does not use Smoking Status: Never smoker alcohol intake frequency: other Substance Use Type: does not use Exam Initial Vital Signs Initial Vital Signs: Vital Signs Temperature 99.9 F H 06/06/21 11:10 Pulse Rate 86 06/06/21 11:10 Respiratory Rate 19 06/06/21 11:10 Blood Pressure 178/86 H 06/06/21 11:10 Pulse Oximetry 97 06/06/21 11:10 HENMT Head: normal to inspection and normocephalic Mouth: moist mucous membranes Resp Effort & Inspection: normal respiratory effort Auscultation: clear to auscultation bilaterally Cardio Rate: regular rate Rhythm: regular rhythm Skin General: no rashes or lesions noted Neuro General: patient alert, patient awake and moves all extremities Extrem General: normal to inspection and capillary refill normal Psych Appearance: grossly normal Course Orders Ordered: ED Orders 06/06/21 11:18 XR chest 1V Stat 06/06/21 11:25 Respiratory Panel (Film Array) Stat Vital Signs Vital signs: Vital Signs - 8 hr 06/06/21 11:10 Temperature 99.9 F H Pulse Rate 86 Respiratory Rate 19 Blood Pressure 178/86 H Pulse Oximetry 97 Medical Decision Making Lab Data Labs: Lab Results 06/06/21 Range/Units 11:25 Chlamy pneumoniae PCR Not detected (Not Detect) Adenovirus (PCR) Not detected (Not Detect) B. pertussis DNA (PCR) Not detected (Not Detecte) B.parapertussis DNA PCR Not detected (Not Detecte) Coronavirus OC43 (PCR) Not detected (Not Detect) Coronavirus HKU1 (PCR) Not detected (Not Detect) Coronavirus 229E (PCR) Not detected (Not Detect) SARS-CoV-2 (PCR) Not detected (Not Detecte) Coronavirus NL63 (PCR) Not detected (Not Detect) Human Metapneumovir PCR Not detected (Not Detect) Influenza Type A (PCR) Not detected (Not Detect) Influenza Type B (PCR) Not detected (Not Detect) M. pneumoniae (PCR) Not detected (Not Detect) Parainfluenza 1 (PCR) Not detected (Not Detect) Parainfluenza 2 (PCR) Not detected (Not Detect) Parainfluenza 3 (PCR) Not detected (Not Detect) Parainfluenza 4 (PCR) Not detected (Not Detect) RSV (PCR) Not detected (Not Detect) Entero/Rhino (PCR) Not detected (Not Detect) Imaging Data Chest x-ray: Radiologist's Impression: [address] [address] XRay Report Signed Patient: Natalya Granados MR#: [id number] : 1945 Acct:[id number] Age/Sex: 76 / F Date of Service: 06/06/21 Loc: ED Accession Number: [id number] ?? Procedure: XR chest 1V Ordering Provider: Chilo Goins D.O. PROCEDURE:? XR CHEST 1V ? INDICATIONS:? Cough and congestion eval for pneumonia ? TECHNIQUE:? One view of the chest was acquired.? ? COMPARISON:? [facility], , XR CXR 2 VIEW, 04/11/2005, 10:09.? [facility], , XR CXR 2 VIEW, 08/22/2005, 9:57. ? FINDINGS:? ? Surgical changes and devices:? None.? ? Lungs and pleura:? An incomplete inspiratory result is noted, causing a crowded appearance to the lung markings.? No focal infiltrates are seen.? No pneumothorax or significant pleural effusions are seen. ? ? Mediastinum:? Mediastinal contours appear normal.? Heart size is normal.? ? Bones and chest wall:? No suspicious bony lesions.? Age-appropriate bony degenerative changes are seen. ? Overlying soft tissues appear unremarkable.? ? ? IMPRESSION:? No focal infiltrates can be seen on this portable chest study. ? ? Dictated by: Tomasz Jara M.D. on 06/06/2021 at 10:41 ? ? Approved by: Tomasz Jara M.D. on 06/06/2021 at 10:42?? MDM Narrative Medical decision making narrative: No respiratory distress. Chest x-ray shows no signs of pneumonia. Viral panel is negative. Afebrile. No indication for antibiotics. Patient is having a cough so will send home with cough medication. She was given return precautions. She expressed understanding and agreement. Discharge Plan Departure Patient Disposition: Home Clinical Impression: Upper respiratory infection, Cough Instructions: Cough Activity Restrictions/Additional Instructions: I recommend that you consider taking a antihistamine such as Claritin or Zyrtec. You can purchase this [id number] and the generic version of this medication is appropriate. Use the cough medications as directed. Be sure to stay hydrated. Contact your primary doctor for follow-up. Return to the emergency department for any new or worsening symptoms. Prescriptions: New benzonatate 100 mg capsule 100 mg PO BID-TID PRN (Reason: cough) Qty: 20 0RF codeine-guaifenesin [Guaifenesin AC] 10-100 mg/5 mL liquid 5 ml PO Q6H PRN (Reason: cough) Qty: 237 0RF No Action Suprep Bowel Prep Kit 17.5-3.13-1.6 gram recon soln See Rx Instructions PO .COMPLEX Qty: 354 0RF Rx Instructions: DILUTE; drink full amount early evening before AND next morning at least 2 hr before procedure; follow w 32 oz. water PO ibuprofen 800 mg tablet See Rx Instructions .ROUTE .COMPLEX Qty: 90 3RF Hold Instructions: using Ketorolac Dose Instruction: TAKE ONE TABLET BY MOUTH EVERY EIGHT HOURS NEEDED FOR PAIN Rx Instructions: TAKE ONE TABLET BY MOUTH EVERY EIGHT HOURS NEEDED FOR PAIN hydrocortisone [Procto-Med HC] 2.5 % cream with perineal applicator 1 applic PA QD-BID PRN (Reason: hemorrhoids) Qty: 30 4RF levothyroxine 112 mcg tablet 112 mcg PO Q DAY Qty: 90 3RF Rx Instructions: Take 1 tab on an empty stomach daily for thyroid omeprazole 20 mg capsule,delayed release(DR/EC) 20 mg PO DAILY Qty: 90 3RF Rx Instructions: Take 1 capsule daily for gastric reflux. olopatadine [Pataday Once Daily Relief] 0.2 % drops 1 drp EYE-BOTH DAILY PRN (Reason: itching) Qty: 2.5 4RF Rx Instructions: 1 gtt cada braulio cada ezequiel para alergias Zyrtec 10 mg capsule 10 mg PO DAILY PRN (Reason: allergy symptoms) Qty: 90 3RF dicyclomine 20 mg tablet 20 mg PO QID PRN (Reason: abdominal pain) Qty: 20 0RF docusate sodium [Colace] 100 mg capsule 100 mg PO DAILY Qty: 20 0RF Referrals: Светлана Hilliard ARNP [Primary Care Provider] - Stand Alone Forms: Work Release Note
[2021-06-06 12:28] LABS: Adenovirus Not Detected (Not Detect); B. parapertussis Not Detected (Not Detecte); Bordetella pertussis Not Detected (Not Detecte); Chlamydophila pneumoniae Not Detected (Not Detect); Coronavirus 229E Not Detected (Not Detect); Coronavirus HKU1 Not Detected (Not Detect); Coronavirus NL 63 Not Detected (Not Detect); Coronavirus OC43 Not Detected (Not Detect); Human Metapneumovirus Not Detected (Not Detect); Human Rhinovirus/Enterovirus Not Detected (Not Detect); Influenza A Not Detected (Not Detect); Influenza B Not Detected (Not Detect); Mycoplasma pneumoniae Not Detected (Not Detect); Parainfluenza Virus 1 Not Detected (Not Detect); Parainfluenza Virus 2 Not Detected (Not Detect); Parainfluenza Virus 3 Not Detected (Not Detect); Parainfluenza Virus 4 Not Detected (Not Detect); Respiratory Syncytial Virus Not Detected (Not Detect); SARS- CoV-2 Not Detected (Not Detecte)
== END 2021-06-06 13:15 | disposition home or self-care (01) ==
PROVIDERS: Emergency Provider Emergency Medicine; PCP Nurse Practitioner
DX: J06.9 Acute upper respiratory infection, unspecified (principal)
CPT/HCPCS: 71045; 87633; 99283

== ENCOUNTER 2021-06-25 22:53 | Emergency (ER) | payer OTHER, SELFPAY ==
--- NOTE | 2021-06-25 23:01 | DI.RAD.S_ITS ---
PROCEDURE: XR KNEE RT 3V INDICATIONS: fall with knee pain TECHNIQUE: 3 views of the knee were acquired. COMPARISON: [facility], , KNEE 3V RIGHT, 09/04/2012, 13:13. FINDINGS: Bones: No fractures or dislocations. Mild joint space narrowing is demonstrated in the lateral compartment with subchondral sclerosis and osteophytosis. There is mild lateral shift of the patella and osteophytosis along the medial and lateral patellar facets. There is associated moderate narrowing in the patellofemoral compartmen. No suspicious bony lesions. Soft tissues: There is a small joint effusion. No suspicious soft tissue calcifications. IMPRESSION: 1. No fracture or dislocation. 2. Osteoarthritic changes of the right knee including moderate joint space narrowing in the lateral and patellofemoral compartments. Dictated by: Brendon Cui M.D. on 06/26/2021 at 1:30 Approved by: Brendon Cui M.D. on 06/26/2021 at 1:33
[2021-06-25 23:57] VITALS: BP 132/98; PULSE 84; RESP 18; TEMP 36.2; O2SAT 97
[2021-06-26 01:11] VITALS: BP 132/80; PULSE 84; RESP 18; O2SAT 97
--- NOTE | 2021-06-26 16:08 | ED.LOWEXIN ---
HPI - Extremity Injury (Lower) General Chief Complaint: Extremity Injury, Lower Stated Complaint: INJURY TO KNEES RIGHT KNEE BRUISED Time Seen by Provider: 06/25/21 23:00 Source: patient Mode of arrival: Ambulatory History of Present Illness HPI Narrative: 76-year-old female nonsmoker with noncontributory medical history presents with a chief complaint of a work related injury to her right knee. She states that she was ambulating on Monday which she got her feet caught up and tripped and fell forward onto her right knee. 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 She presents today because of a persistence, worsening of discomfort. She denies any other injuries such as head, neck or back pain. She denies any numbness, tingling or weakness. She denies any prodromal symptoms such as chest pain, shortness of breath, or other Related Data Previous Rx's Medication Instructions Recorded dicyclomine 20 mg tablet 20 mg PO QID PRN #20 tab 12/24/19 docusate sodium 100 mg capsule 100 mg PO DAILY #20 cap 12/24/19 (Colace) levothyroxine 112 mcg tablet 112 mcg PO Q DAY #90 tab 07/27/20 omeprazole 20 mg capsule,delayed 20 mg PO DAILY #90 cap 07/27/20 release sodium,potassium,mag sulfates 17.5 See Rx Instructions PO .COMPLEX 09/16/20 gram-3.13 gram-1.6 gram oral soln #354 ml (Suprep Bowel Prep Kit) ibuprofen 800 mg tablet See Rx Instructions .ROUTE 02/15/21 .COMPLEX #90 tab cetirizine 10 mg capsule (Zyrtec) 10 mg PO DAILY PRN #90 cap 04/01/21 olopatadine 0.2 % eye drops 1 drp EYE-BOTH DAILY PRN #2.5 ml 04/01/21 (Pataday Once Daily Relief) hydrocortisone 2.5 % topical cream 1 applic IN QD-BID PRN #30 g 05/12/21 with perineal applicator (Procto-Med ) benzonatate 100 mg capsule 100 mg PO BID-TID PRN #20 cap 06/06/21 codeine 10 mg-guaifenesin 100 mg/5 5 ml PO Q6H PRN #237 ml 06/06/21 mL oral liquid (Guaifenesin AC) Allergies Allergy/AdvReac Type Severity Reaction Status Date / Time oxycodone AdvReac Severe tremors, Verified 06/25/21 23:55 numbness, itching metronidazole AdvReac Mild DIZZINESS Verified 06/25/21 23:55 Review of Systems Review of Systems Narrative: GENERAL: Denies chills, fatigue, malaise, fever, sweats. HEENT: Denies sinus pain, ear pain, sore throat, difficulty swallowing, dizziness. RESPIRATORY: Denies dyspnea, cough, wheezing, hemoptysis, sputum. CARDIOVASCULAR: Denies chest pain, palpitations, orthopnea, edema, GASTROINTESTINAL: Denies nausea, vomiting, abdominal pain, diarrhea, constipation, melena. : Denies dysuria, frequency, incontinence, hematuria, urinary retention. MUSCULOSKELETAL: see HPI SKIN: Denies rash, skin lesions, or other NEUROLOGIC: Denies weakness, headache, numbness, change in speech, confusion, seizures, incoordination. PSYCHIATRIC: No concerning psychosocial issues. 12 point review of systems is negative except for those stated above Patient History Medical History Abnormal DAE-rk-zzczkfvlzv ratio Cataract, left eye (~05/2012) Colitis Elevated blood pressure reading in office without diagnosis of hypertension Elevated BUN Endometrial mass Gas pain GERD (gastroesophageal reflux disease) (Unknown) Hemorrhoids History of headache Hx of varicose veins (Unknown) Hypertension Hypertriglyceridemia Hypothyroidism (Unknown) IBS (irritable bowel syndrome) (Unknown) Irritable bowel syndrome Left eye pain Left shoulder pain Left upper quadrant pain Low back pain Lower urinary tract symptoms (LUTS) Migraines (Unknown) Morbid obesity Muscle spasm Neck pain Pelvic pain Positive PPD (Unknown) Postmenopausal Right upper quadrant abdominal pain (10/29/18) Sleep pattern disturbance Temporal pain Upper respiratory infection, viral Uterine mass Uterine mass Surgical History Hx of surgical procedure (02/2017) Family History Brother Other specified diabetes mellitus with unspecified complications Father Cancer Mother Cancer Sister Cancer Social History household members: family Smoking Status: Never smoker second hand exposure: Yes (only when I go to the casino, but I go to the non-smoking area.) alcohol intake: never substance use type: does not use Smoking Status: Never smoker alcohol intake frequency: other Substance Use Type: does not use Exam Narrative Exam Narrative: GEN: AOx3 and in mild distress EYES: Pupils are equal, round, and reactive to light and accommodation. Extraoccular muscles are intact bilaterally. There is no subconjunctival hemorrhage or exudate. CHEST: Lungs are clear to auscultation bilaterally and free of wheezes, rales, or rhonchi. Heart rate is regular rhythm, there are no murmurs, clicks, rubs, or gallops. There is no chest wall tenderness. ABD: Abdomen is soft and nontender. There is no guarding or rebound. Bowel sounds are normal in all 4 quadrants. There is no mass or organomegaly. EXT: full but painful range of motion of right knee without obvious external deformity, effusion, ligamentous instability. She does have some dark purple ecchymosis without edema overlying the patella. SKIN: Warm, pink, and dry. No erythema or rash Initial Vital Signs Initial Vital Signs: Vital Signs Temperature 97.1 F L 06/25/21 23:57 Pulse Rate 84 06/25/21 23:57 Respiratory Rate 18 06/25/21 23:57 Blood Pressure 132/98 H 06/25/21 23:57 Pulse Oximetry 97 06/25/21 23:57 MDM - Extremity Injury (Lower) Imaging Data Extremity x-ray #1: Radiologist's Impression: [address] [address] XRay Report Signed Patient: Natalya Granados MR#: [id number] : 1945 Acct:[id number] Age/Sex: 76 / F Date of Service: 06/25/21 Loc: ED Accession Number: [id number] ?? Procedure: XR knee RT 3V Ordering Provider: Doron Dai D.O. PROCEDURE:? XR KNEE RT 3V ? INDICATIONS:? fall with knee pain ? TECHNIQUE:? 3 views of the knee were acquired.? ? COMPARISON:? [facility], , KNEE 3V RIGHT, 09/04/2012, 13:13. ? FINDINGS:? ? Bones:? No fractures or dislocations.? Mild joint space narrowing is demonstrated in the lateral compartment with subchondral sclerosis and osteophytosis.? There is mild lateral shift of the patella and osteophytosis along the medial and lateral patellar facets.? There is associated moderate narrowing in the patellofemoral compartmen.? No suspicious bony lesions.? ? Soft tissues:? There is a small joint effusion.? No suspicious soft tissue calcifications.? ? IMPRESSION:? ? 1. No fracture or dislocation. ? 2. Osteoarthritic changes of the right knee including moderate joint space narrowing in the lateral and patellofemoral compartments.? ? Dictated by: Brendon Cui M.D. on 06/26/2021 at 1:30 ? ? Approved by: Brendon Cui M.D. on 06/26/2021 at 1:33 ? Discharge Plan Departure Patient Disposition: Home Clinical Impression: Contusion of knee, right Instructions: DI for Knee Pain Activity Restrictions/Additional Instructions: *You have been diagnosed with [right knee contusion. As we discussed your history, physical exam and x-ray a reassuring. There is no evidence of fracture or dislocation *What to do: *Please continue to take your regular medications as directed. [ ] New medication prescriptions sent to your pharmacy: [ ] [ ] New medication written as a paper prescription [x ] No new medications given *Please follow up with your primary care provider in 2-3 days, call for an appointment. Let them know you were seen in the Emergency Department and that we ask that you be seen in follow up. We will electronically transmit a record of today's note if your PCP is in our system *If you do not have a primary care provider please contact the [facility] Resource line at [phone]. They will ask some questions about your medical history and help get you set up with a doctor in the community. *Return to Emergency Department if you should have any new, worsening or concerning symptoms, such as [fever greater than 101 F, shaking chills, worsening pain, persistent vomiting or other bothersome symptoms] Prescriptions: No Action Suprep Bowel Prep Kit 17.5-3.13-1.6 gram recon soln See Rx Instructions PO .COMPLEX Qty: 354 0RF Rx Instructions: DILUTE; drink full amount early evening before AND next morning at least 2 hr before procedure; follow w 32 oz. water PO ibuprofen 800 mg tablet See Rx Instructions .ROUTE .COMPLEX Qty: 90 3RF Hold Instructions: using Ketorolac Dose Instruction: TAKE ONE TABLET BY MOUTH EVERY EIGHT HOURS NEEDED FOR PAIN Rx Instructions: TAKE ONE TABLET BY MOUTH EVERY EIGHT HOURS NEEDED FOR PAIN hydrocortisone [Procto-Med HC] 2.5 % cream with perineal applicator 1 applic IN QD-BID PRN (Reason: hemorrhoids) Qty: 30 4RF levothyroxine 112 mcg tablet 112 mcg PO Q DAY Qty: 90 3RF Rx Instructions: Take 1 tab on an empty stomach daily for thyroid omeprazole 20 mg capsule,delayed release(DR/EC) 20 mg PO DAILY Qty: 90 3RF Rx Instructions: Take 1 capsule daily for gastric reflux. olopatadine [Pataday Once Daily Relief] 0.2 % drops 1 drp EYE-BOTH DAILY PRN (Reason: itching) Qty: 2.5 4RF Rx Instructions: 1 gtt cada braulio cada ezequiel para alergias Zyrtec 10 mg capsule 10 mg PO DAILY PRN (Reason: allergy symptoms) Qty: 90 3RF benzonatate 100 mg capsule 100 mg PO BID-TID PRN (Reason: cough) Qty: 20 0RF codeine-guaifenesin [Guaifenesin AC] 10-100 mg/5 mL liquid 5 ml PO Q6H PRN (Reason: cough) Qty: 237 0RF dicyclomine 20 mg tablet 20 mg PO QID PRN (Reason: abdominal pain) Qty: 20 0RF docusate sodium [Colace] 100 mg capsule 100 mg PO DAILY Qty: 20 0RF Referrals: Светлана Hilliard ARNP [Primary Care Provider] -
== END 2021-06-26 01:12 | disposition home or self-care (01) ==
PROVIDERS: Emergency Provider Emergency Medicine; PCP Nurse Practitioner
DX: S80.01XA Contusion of right knee, initial encounter (principal); W19.XXXA Unspecified fall, initial encounter; Y99.0 Civilian activity done for income or pay
CPT/HCPCS: 73562; 99281; 99283

== ENCOUNTER → 2021-09-07 10:20 | Outpatient (CLI) | payer OTHER, SELFPAY ==
[2021-09-07 11:51] LABS: Add Manual Diff / Slide Review NO; Basophils Absolute Auto 0 /uL (0-100); Basophils Percent Auto 0.4 % (0-2); Eosinophils Absolute Auto 300 /uL (0-450); Eosinophils Percent Auto 4.9 % (2-4); Hematocrit 42.9 % (36-46); Hemoglobin 14.2 g/dL (12.0-16.0); Lymphocytes Absolute Auto 1800 /uL (1100-4500); Lymphocytes Percent Auto 27.8 % (25-40); Mean Corpuscular Hemoglobin 27.6 PG (26-34); Mean Corpuscular Volume 83.5 fL (80-100); Monocytes Absolute Auto 600 /uL (0-900); Monocytes Percent Auto 9.4 % (3-14); Neutrophils Absolute Auto 3800 /uL (1500-7000); Neutrophils Percent Auto 57.5 % (50-75); Platelet Count 191 X10^3/uL (150-400); Red Blood Cell Count 5.14 X10^6/uL (4.0-5.2); Red Cell Distribution Width 14.3 % (11.6-14.8); White Blood Cell Count 6.6 X10^3/uL (4.5-11.0)
[2021-09-07 12:02] LABS: Alanine Aminotransferase 57 IU/L (<35); Albumin 4.2 g/dL (3.5-5.0); Albumin Globulin Ratio 1.4 (1.0-2.8); Alkaline Phosphatase 82 U/L (38-126); Aspartate Aminotransferase 41 IU/L (14-36); Bilirubin Total 0.6 mg/dL (0.2-1.3); Blood Urea Nitrogen 18 mg/dL (7-17); Carbon Dioxide 29 mmol/L (22-32); Chloride 104 mmol/L (98-107); Cholesterol 150 mg/dL (140-199); Estimated Glomerular Filt Rate > 60 mL/min (>60); Globulin 2.9 g/dL (1.7-4.1); Glucose 114 mg/dL (80-110); HDL Cholesterol 42 mg/dL (40-60); HEMOLYSIS < 15 (0-50); LDL Cholesterol Calculated 70 mg/dL (<100); Potassium 4.1 mmol/L (3.4-5.1); Sodium 140 mmol/L (137-145); Total Protein 7.1 g/dL (6.3-8.2); Triglycerides 192 mg/dL (35-150)
[2021-09-07 14:17] LABS: Free T3, Triiodothyronine Free 3.51 pg/mL (2.77-5.27); Free T4, Direct Thyroxine 1.56 ng/dL (0.78-2.19)
[2021-09-07 14:31] LABS: Thyroid Stimulating Hormone 1.83 uIU/mL (0.47-4.68)
== END ==
PROVIDERS: PCP Nurse Practitioner; Referring Provider Nurse Practitioner; Visit Provider Nurse Practitioner
DX: E03.9 Hypothyroidism, unspecified (principal); E78.1 Pure hyperglyceridemia; I10 Essential (primary) hypertension; R53.83 Other fatigue
CPT/HCPCS: 36415; 80053; 80061; 84439; 84443; 84481; 85025

== ENCOUNTER → 2021-10-22 09:08 | Outpatient (CLI) | payer OTHER, SELFPAY | PROVIDERS: PCP Nurse Practitioner; Referring Provider Nurse Practitioner; Visit Provider Nurse Practitioner | DX: R42 Dizziness and giddiness (principal) | CPT/HCPCS: 36415; 83036 ==

== ENCOUNTER 2021-11-08 19:41 | Emergency (ER) | payer OTHER, SELFPAY ==
[2021-11-08 19:49] VITALS: BP 157/77; PULSE 77; RESP 18; TEMP 36.6; O2SAT 99
--- NOTE | 2021-11-08 20:47 | ED_ITS ---
HPI - Wound/Laceration General Chief Complaint: Wound/Laceration Stated Complaint: Needle stick to left hand Time Seen by Provider: 11/08/21 19:54 Source: patient Mode of arrival: Ambulatory History of Present Illness HPI narrative: Patient is a 76-year-old female history of diabetes presenting today after needlestick injury while at work. States that she was cleaning she moved sharps container there was a long spinal needle that was not pushed down all the way in it caught her left dorsal hand. She is not sure when her last tetanus was or if she has had the hepatitis-B vaccination. She is open to treatment for HIV and hepatitis. Related Data Previous Rx's Medication Instructions Recorded dicyclomine 20 mg tablet 20 mg PO QID PRN abdominal pain 12/24/19 #20 tabs docusate sodium 100 mg capsule 100 mg PO DAILY #20 caps 12/24/19 (Colace) sodium,potassium,mag sulfates 17.5 See Rx Instructions PO .COMPLEX 09/16/20 gram-3.13 gram-1.6 gram oral soln #354 mL (Suprep Bowel Prep Kit) cetirizine 10 mg capsule (Zyrtec) 10 mg PO DAILY PRN allergy 04/01/21 symptoms #90 caps olopatadine 0.2 % eye drops 1 drp EYE-BOTH DAILY PRN itching 04/01/21 (Pataday Once Daily Relief) #2.5 mL hydrocortisone 2.5 % topical cream 1 applic IA QD-BID PRN hemorrhoids 05/12/21 with perineal applicator #30 grams (Procto-Med HC) benzonatate 100 mg capsule 100 mg PO BID-TID PRN cough #20 06/06/21 caps codeine 10 mg-guaifenesin 100 mg/5 5 ml PO Q6H PRN cough #237 mL 06/06/21 mL oral liquid (Guaifenesin AC) levothyroxine 112 mcg tablet 112 mcg PO Q DAY #90 tabs 08/18/21 omeprazole 20 mg capsule,delayed 20 mg PO BID #180 caps 09/06/21 release Allergies Allergy/AdvReac Type Severity Reaction Status Date / Time oxycodone AdvReac Severe tremors, Verified 10/19/21 11:57 numbness, itching metronidazole AdvReac Mild DIZZINESS Verified 10/19/21 11:57 Review of Systems Review of Systems Narrative: GENERAL: Denies chills,fever HEENT: Denies throat pain RESPIRATORY: Denies dyspnea, cough, wheezing CARDIOVASCULAR: Denies chest pain, palpitations GASTROINTESTINAL: Denies nausea, vomiting MUSCULOSKELETAL: Denies extremity pain, injury SKIN: See HPI NEUROLOGIC: Denies weakness, dizziness, headache, numbness 8 point review of systems is negative except for those stated above and HPI Patient History Medical History Abnormal HRQ-ac-dqvyptkxdk ratio Cataract, left eye (~05/2012) Colitis Elevated blood pressure reading in office without diagnosis of hypertension Elevated BUN Endometrial mass Gas pain GERD (gastroesophageal reflux disease) (Unknown) Hemorrhoids History of headache Hx of varicose veins (Unknown) Hypertension Hypertriglyceridemia Hypothyroidism (Unknown) IBS (irritable bowel syndrome) (Unknown) Irritable bowel syndrome Left eye pain Left shoulder pain Left upper quadrant pain Low back pain Lower urinary tract symptoms (LUTS) Migraines (Unknown) Morbid obesity Muscle spasm Neck pain Pelvic pain Positive PPD (Unknown) Postmenopausal Right upper quadrant abdominal pain (10/29/18) Sleep pattern disturbance Temporal pain Upper respiratory infection, viral Uterine mass Uterine mass Surgical History Hx of surgical procedure (02/2017) Family History Brother Other specified diabetes mellitus with unspecified complications Father Cancer Mother Cancer Sister Cancer Social History household members: family Smoking Status: Never smoker second hand exposure: Yes (only when I go to the casino, but I go to the non- smoking area.) alcohol intake: never substance use type: does not use Smoking Status: Never smoker alcohol intake frequency: other Substance Use Type: does not use Exam Initial Vital Signs Initial Vital Signs: Vital Signs Temperature 97.8 F 11/08/21 19:49 Pulse Rate 77 11/08/21 19:49 Respiratory Rate 18 11/08/21 19:49 Blood Pressure 157/77 H 11/08/21 19:49 Pulse Oximetry 99 11/08/21 19:49 Oxygen Delivery Method 11/08/21 19:49 GENERAL: Well-appearing, well-nourished and in no acute distress. CARDIOVASCULAR: peripheral pulses in tact, cap refill <2 sec RESPIRATORY: No respiratory distress, speaks in full sentences without difficulty EXTREMITIES: Normal range of motion, no clubbing or edema. Neurovascularly intact NEUROLOGICAL: Cranial nerves II through XII grossly intact. Normal gait and speech. SKIN: Small superficial wound dorsal side of hand with scab Course Orders Ordered: Discontinued Medications Emtricitabine/Tenofovir (Emtricitabin/Tenofovir Prepack) 1 prepack MISC SEEINSTR ONE Stop: 11/08/21 21:01 Last Admin: 11/08/21 21:46 Dose: 1 prepack Documented By: RB Hepatitis B Immune Globulin (Hepatitis B Immune Globulin 5 Ml Vial) 6 ml 0.06 ml/kg (6 ml) IM NOW ONE Stop: 11/08/21 20:56 Last Admin: 11/08/21 23:00 Dose: 5 ml Documented By: RB Hepatitis B Vaccine (Hepatitis B Vac (Engerix-B) 10 Mcg/0.5 Ml Vial) 20 mcg IM .ONCE ONE Stop: 11/08/21 20:56 Last Admin: 11/08/21 21:43 Dose: 20 mcg Documented By: RB Vital Signs Vital signs: Vital Signs - 8 hr 11/08/21 19:49 11/08/21 23:15 Temperature 97.8 F Pulse Rate 77 74 Respiratory Rate 18 16 Blood Pressure 157/77 H 138/71 Pulse Oximetry 99 99 Oxygen Delivery Method Room Air Room Air MDM - Wound/Laceration Lab Data Labs: Lab Results 11/08/21 11/08/21 Range/Units 20:17 20:17 ALT 27 (<35) IU/L Hep Bs Antigen Negative (NEGATIVE) s/c Hepatitis C Antibody Negative (NEGATIVE) s/c HIV 1&2 Ab/P24 Ag 4thGn Negative (NEGATIVE) MDM Narrative Medical decision making narrative: Patient unsure when she had her last tetanus but is found in the computer and was updated in about 2017. It is unclear if she has had her hepatitis-B vaccine she is given the immunoglobulin however we only have 5 mL she needs 1 more mL within the next 24 hours. She is offered HIV prophylaxis medication which she takes. She understands that she will need to be tested again for hepatitis-C and B and HIV. She will need to return to the ED in the next 24 hours for the rest of her hepatitis-B immunoglobulin Discharge Plan Departure Patient Disposition: Home Clinical Impression: Employee exposure to blood Instructions: DI for Accidental Exposure to Body Fluids Activity Restrictions/Additional Instructions: *You have been diagnosed with exposure *What to do: You have been exposed would unknown bodily fluid. There was possible risk of HIV and hepatitis-B. Were given hepatitis-B immunoglobulin and vaccine along with HIV prophylaxis. He will need to see your PCP for further testing and possible further treatment YOU WILL NEED TO RETURN TO THE EMERGENCY DEPARTMENT TOMORROW FOR HIS THE 2ND HALF OF YOUR HEPATITIS B IMMUNOGLOBULIN YOU WILL NEED TO BE TESTED FOR HIV AND HEPATITIS C AND HEPATITIS B AT 6 WEEKS AND 12 WEEKS AND AT 6 MONTHS WITH YOUR PCP *Continue to take medications as directed Take Truvada 1 tablet once a day *Follow up with your primary care provider in 2-3 days or call [phone] *Return to ER if you should have any new, worsening or concerning symptoms Prescriptions: No Action Suprep Bowel Prep Kit 17.5-3.13-1.6 gram recon soln See Rx Instructions PO .COMPLEX Qty: 354 0RF Rx Instructions: DILUTE; drink full amount early evening before AND next morning at least 2 hr before procedure; follow w 32 oz. water PO hydrocortisone [Procto-Med HC] 2.5 % cream with perineal applicator 1 applic IA QD-BID PRN (Reason: hemorrhoids) Qty: 30 4RF levothyroxine 112 mcg tablet 112 mcg PO Q DAY Qty: 90 0RF Rx Instructions: Take 1 tab on an empty stomach daily for thyroid. Due for lab and appointment prior to future refills. olopatadine [Pataday Once Daily Relief] 0.2 % drops 1 drp EYE-BOTH DAILY PRN (Reason: itching) Qty: 2.5 4RF Rx Instructions: 1 gtt cada braulio cada ezequiel para alergias Zyrtec 10 mg capsule 10 mg PO DAILY PRN (Reason: allergy symptoms) Qty: 90 3RF omeprazole 20 mg capsule,delayed release(DR/EC) 20 mg PO BID Qty: 180 3RF Rx Instructions: Take 1 capsule twice daily for gastric reflux. benzonatate 100 mg capsule 100 mg PO BID-TID PRN (Reason: cough) Qty: 20 0RF codeine-guaifenesin [Guaifenesin AC] 10-100 mg/5 mL liquid 5 ml PO Q6H PRN (Reason: cough) Qty: 237 0RF dicyclomine 20 mg tablet 20 mg PO QID PRN (Reason: abdominal pain) Qty: 20 0RF docusate sodium [Colace] 100 mg capsule 100 mg PO DAILY Qty: 20 0RF Referrals: Светлана Hilliard ARNP [Primary Care Provider] - Visit Report Forms: Patient Portal/API
[2021-11-08 20:49] LABS: Alanine Aminotransferase 27 IU/L (<35)
[2021-11-08 21:21] LABS: Hepatitis B Surface Antigen NEGATIVE s/c (NEGATIVE)
[2021-11-08 21:40] LABS: HIV 1 & 2 Ab/Ag 4th Gen Combo NEGATIVE (NEGATIVE); Hep C Virus Ab w/Reflex Quant NEGATIVE s/c (NEGATIVE)
[2021-11-08] MEDS: HEPATITIS B VAC (ENGERIX-B) 10 MCG/0.5 ML VIAL 20 MCG IM (21:43)
[2021-11-08] MEDS: EMTRICITABIN/TENOFOVIR PREPACK 1 PREPACK MISC (21:46)
[2021-11-08] MEDS: HEPATITIS B IMMUNE GLOBULIN 5 ML VIAL 6 ML IM (23:00)
--- NOTE | 2021-11-08 23:02 | PC.NURSE ---
Patient educated that they are to return within 24 hours to receive the final 1ml of the hepatitis B immune globulin. The pharmacy only had 5ml of this medication. Pharmacy will secure final ml in the morning. Provider notified of the missing ml from order.
[2021-11-08 23:15] VITALS: BP 138/71; PULSE 74; RESP 16; O2SAT 99
[2021-11-10 04:08] LABS: Hepatitis B Surf Ab Qualitativ Non Reactive (.)
== END 2021-11-08 23:15 | disposition home or self-care (01) ==
PROVIDERS: Emergency Provider Emergency Medicine; PCP Nurse Practitioner
DX: Z77.21 Contact with and (suspected) exposure to potentially hazardous body fluids (principal); Y99.0 Civilian activity done for income or pay; Z23 Encounter for immunization
CPT/HCPCS: 90471; 90746; 96372; 99283; J1571

== ENCOUNTER 2021-11-09 14:28 | Emergency (ER) | payer OTHER, SELFPAY ==
[2021-11-09 14:34] VITALS: BP 161/96; PULSE 82; RESP 16; TEMP 36.9; O2SAT 98
[2021-11-09] MEDS: HEPATITIS B IMMUNE GLOBULIN 5 ML VIAL 1 ML IM (15:06)
[2021-11-09 16:02] VITALS: BP 146/74; PULSE 73; RESP 18; O2SAT 98
--- NOTE | 2021-11-09 16:09 | ED.RECABL ---
HPI - Recheck/Abnormal Lab/Rx General Chief Complaint: Recheck/Abnormal Lab/Rx Stated Complaint: Eployee exposure return for shots Time Seen by Provider: 11/09/21 14:32 Source: patient Mode of arrival: Ambulatory History of Present Illness HPI narrative: 76-year-old female nonsmoker with history of diabetes presents for the 2nd time in 2 days for help with an accidental work related needle exposure yesterday. She had been working with gloved hands when she was accidentally poked in the dorsum of her left hand by a dirty spinal needle. She did have some bleeding and it was immediately washed and she presented to the emergency department. It turns out that she was a bit behind on her hepatitis-B vaccines and it was recommended that she receive the hepatitis-B immunoglobulin, however they were unable to give a complete dose last night and she was encouraged to come back today for the remaining 1 mL. Additionally, she was consented for post exposure prophylaxis Truvada which she has not taken given her concern for side effects such as liver and kidney stone issues. Related Data Previous Rx's Medication Instructions Recorded dicyclomine 20 mg tablet 20 mg PO QID PRN abdominal pain 12/24/19 #20 tabs docusate sodium 100 mg capsule 100 mg PO DAILY #20 caps 12/24/19 (Colace) sodium,potassium,mag sulfates 17.5 See Rx Instructions PO .COMPLEX 09/16/20 gram-3.13 gram-1.6 gram oral soln #354 mL (Suprep Bowel Prep Kit) cetirizine 10 mg capsule (Zyrtec) 10 mg PO DAILY PRN allergy 04/01/21 symptoms #90 caps olopatadine 0.2 % eye drops 1 drp EYE-BOTH DAILY PRN itching 04/01/21 (Pataday Once Daily Relief) #2.5 mL hydrocortisone 2.5 % topical cream 1 applic NE QD-BID PRN hemorrhoids 05/12/21 with perineal applicator #30 grams (Procto-Med HC) benzonatate 100 mg capsule 100 mg PO BID-TID PRN cough #20 06/06/21 caps codeine 10 mg-guaifenesin 100 mg/5 5 ml PO Q6H PRN cough #237 mL 06/06/21 mL oral liquid (Guaifenesin AC) levothyroxine 112 mcg tablet 112 mcg PO Q DAY #90 tabs 08/18/21 omeprazole 20 mg capsule,delayed 20 mg PO BID #180 caps 09/06/21 release Allergies Allergy/AdvReac Type Severity Reaction Status Date / Time oxycodone AdvReac Severe tremors, Verified 10/19/21 11:57 numbness, itching metronidazole AdvReac Mild DIZZINESS Verified 10/19/21 11:57 Review of Systems Review of Systems Narrative: GENERAL: Denies chills, fatigue, malaise, fever, sweats. HEENT: Denies sinus pain, ear pain, sore throat, difficulty swallowing, dizziness. RESPIRATORY: Denies dyspnea, cough, wheezing, hemoptysis, sputum. CARDIOVASCULAR: Denies chest pain, palpitations, orthopnea, edema, GASTROINTESTINAL: Denies nausea, vomiting, abdominal pain, diarrhea, constipation, melena. : Denies dysuria, frequency, incontinence, hematuria, urinary retention. MUSCULOSKELETAL: denies weakness, joint pain, or bony pain SKIN: Denies rash, skin lesions, or other NEUROLOGIC: Denies weakness, headache, numbness, change in speech, confusion, seizures, incoordination. PSYCHIATRIC: No concerning psychosocial issues. 12 point review of systems is negative except for those stated above Patient History Medical History Abnormal MZE-ss-ibttqavdve ratio Cataract, left eye (~05/2012) Colitis Elevated blood pressure reading in office without diagnosis of hypertension Elevated BUN Endometrial mass Gas pain GERD (gastroesophageal reflux disease) (Unknown) Hemorrhoids History of headache Hx of varicose veins (Unknown) Hypertension Hypertriglyceridemia Hypothyroidism (Unknown) IBS (irritable bowel syndrome) (Unknown) Irritable bowel syndrome Left eye pain Left shoulder pain Left upper quadrant pain Low back pain Lower urinary tract symptoms (LUTS) Migraines (Unknown) Morbid obesity Muscle spasm Neck pain Pelvic pain Positive PPD (Unknown) Postmenopausal Right upper quadrant abdominal pain (10/29/18) Sleep pattern disturbance Temporal pain Upper respiratory infection, viral Uterine mass Uterine mass Surgical History Hx of surgical procedure (02/2017) Family History Brother Other specified diabetes mellitus with unspecified complications Father Cancer Mother Cancer Sister Cancer Social History household members: family Smoking Status: Never smoker second hand exposure: Yes (only when I go to the casino, but I go to the non-smoking area.) alcohol intake: never substance use type: does not use Smoking Status: Never smoker alcohol intake frequency: other Substance Use Type: does not use Exam Narrative Exam Narrative: GEN: AOx3 and in no obvious distress EYES: Pupils are equal, round, and reactive to light and accommodation. Extraoccular muscles are intact bilaterally. There is no subconjunctival hemorrhage or exudate. CHEST: Lungs are clear to auscultation bilaterally and free of wheezes, rales, or rhonchi. Heart rate is regular rhythm, there are no murmurs, clicks, rubs, or gallops. There is no chest wall tenderness. ABD: Abdomen is soft and nontender. There is no guarding or rebound. Bowel sounds are normal in all 4 quadrants. There is no mass or organomegaly. EXT: Full painless ROM of all extremities with no loss of sensation or strength. SKIN: Warm, pink, and dry. No erythema or rash Initial Vital Signs Initial Vital Signs: Vital Signs Temperature 98.5 F 11/09/21 14:34 Pulse Rate 82 11/09/21 14:34 Respiratory Rate 16 11/09/21 14:34 Blood Pressure 161/96 H 11/09/21 14:34 Pulse Oximetry 98 11/09/21 14:34 Oxygen Delivery Method 11/09/21 14:34 Course Orders Ordered: Discontinued Medications Hepatitis B Immune Globulin (Hepatitis B Immune Globulin 5 Ml Vial) 1 ml IM NOW ONE Stop: 11/09/21 14:59 Last Admin: 11/09/21 15:06 Dose: 1 ml Documented By: ROE Vital Signs Vital signs: Vital Signs - 8 hr 11/09/21 14:34 11/09/21 16:02 Temperature 98.5 F Pulse Rate 82 73 Respiratory Rate 16 18 Blood Pressure 161/96 H 146/74 H Pulse Oximetry 98 98 Oxygen Delivery Method Room Air MDM - Recheck/Abnormal Lab/Rx MDM Narrative Medical decision making narrative: Patient updated on Hep B IG Called [facility] PEP Provider hotline, given story they would not recommend use of PEP. Patient relayed this information and elects to hold off on PEP. Questions answered to her apparent satisfaction Discharge Plan Departure Patient Disposition: Home Clinical Impression: Needlestick injury accident with exposure to body fluid Instructions: DI for Accidental Exposure to Body Fluids Activity Restrictions/Additional Instructions: *You have been diagnosed with [accidental work related needlestick] *What to do: *Please continue to take your regular medications as directed. *Please follow up with your primary care provider in 2-3 days, call for an appointment. Let them know you were seen in the Emergency Department and that we ask that you be seen in follow up. We will electronically transmit a record of today's note if your PCP is in our system *If you do not have a primary care provider please contact the [facility] Resource line at [phone]. They will ask some questions about your medical history and help get you set up with a doctor in the community. *Return to Emergency Department if you should have any new, worsening or concerning symptoms, such as [fever greater than 101 F, shaking chills, worsening pain, persistent vomiting or other bothersome symptoms] Prescriptions: No Action Suprep Bowel Prep Kit 17.5-3.13-1.6 gram recon soln See Rx Instructions PO .COMPLEX Qty: 354 0RF Rx Instructions: DILUTE; drink full amount early evening before AND next morning at least 2 hr before procedure; follow w 32 oz. water PO hydrocortisone [Procto-Med HC] 2.5 % cream with perineal applicator 1 applic NE QD-BID PRN (Reason: hemorrhoids) Qty: 30 4RF levothyroxine 112 mcg tablet 112 mcg PO Q DAY Qty: 90 0RF Rx Instructions: Take 1 tab on an empty stomach daily for thyroid. Due for lab and appointment prior to future refills. olopatadine [Pataday Once Daily Relief] 0.2 % drops 1 drp EYE-BOTH DAILY PRN (Reason: itching) Qty: 2.5 4RF Rx Instructions: 1 gtt cada braulio cada ezequiel para alergias Zyrtec 10 mg capsule 10 mg PO DAILY PRN (Reason: allergy symptoms) Qty: 90 3RF omeprazole 20 mg capsule,delayed release(DR/EC) 20 mg PO BID Qty: 180 3RF Rx Instructions: Take 1 capsule twice daily for gastric reflux. benzonatate 100 mg capsule 100 mg PO BID-TID PRN (Reason: cough) Qty: 20 0RF codeine-guaifenesin [Guaifenesin AC] 10-100 mg/5 mL liquid 5 ml PO Q6H PRN (Reason: cough) Qty: 237 0RF dicyclomine 20 mg tablet 20 mg PO QID PRN (Reason: abdominal pain) Qty: 20 0RF docusate sodium [Colace] 100 mg capsule 100 mg PO DAILY Qty: 20 0RF Referrals: Светлана Hilliard ARNP [Primary Care Provider] - Visit Report Forms: Patient Portal/API
== END 2021-11-09 16:50 | disposition home or self-care (01) ==
PROVIDERS: Emergency Provider Emergency Medicine; PCP Nurse Practitioner
DX: Z77.21 Contact with and (suspected) exposure to potentially hazardous body fluids (principal); Y99.0 Civilian activity done for income or pay
CPT/HCPCS: 96372; 99283; J1571

== ENCOUNTER → 2021-11-30 16:19 | Outpatient (CLI) | payer OTHER, SELFPAY | PROVIDERS: PCP Nurse Practitioner; Referring Provider Internal Medicine; Visit Provider Internal Medicine | DX: Z23 Encounter for immunization (principal) | CPT/HCPCS: 90471; 90662 ==

== ENCOUNTER → 2022-10-04 10:50 | Outpatient (CLI) | payer MEDICARE, MEDICAID, SELFPAY ==
[2022-10-04 12:42] LABS: Add Manual Diff / Slide Review NO; Basophils Absolute Auto 0 /uL (0-100); Basophils Percent Auto 0.6 % (0-2); Eosinophils Absolute Auto 200 /uL (0-450); Eosinophils Percent Auto 2.5 % (2-4); Hemoglobin 15.6 g/dL (12.0-16.0); Lymphocytes Absolute Auto 2100 /uL (1100-4500); Lymphocytes Percent Auto 29.1 % (25-40); Mean Corpuscular HGB Conc 34.7 % (30-36); Mean Corpuscular Hemoglobin 28.9 PG (26-34); Mean Corpuscular Volume 83.4 fL (80-100); Monocytes Absolute Auto 700 /uL (0-900); Neutrophils Absolute Auto 4300 /uL (1500-7000); Neutrophils Percent Auto 58.8 % (50-75); Platelet Count 207 X10^3/uL (150-400); Red Blood Cell Count 5.39 X10^6/uL (4.0-5.2); Red Cell Distribution Width 14.4 % (11.6-14.8); White Blood Cell Count 7.3 X10^3/uL (4.5-11.0)
[2022-10-04 12:51] LABS: Alanine Aminotransferase 58 IU/L (<35); Albumin 4.6 g/dL (3.5-5.0); Albumin Globulin Ratio 1.4 (1.0-2.8); Alkaline Phosphatase 74 U/L (38-126); Aspartate Aminotransferase 43 IU/L (14-36); BUN Creatinine Ratio 22.2 (6-22); Bilirubin Total 0.7 mg/dL (0.2-1.3); Blood Urea Nitrogen 14 mg/dL (7-17); Calcium 9.8 mg/dL (8.4-10.2); Carbon Dioxide 28 mmol/L (22-32); Chloride 102 mmol/L (98-107); Cholesterol 165 mg/dL (140-199); Estimated Glomerular Filt Rate > 60 mL/min (>60); Globulin 3.3 g/dL (1.7-4.1); Glucose 102 mg/dL (80-110); HDL Cholesterol 45 mg/dL (40-60); HEMOLYSIS < 15 (0-50); LDL Cholesterol Calculated 73 mg/dL (<100); Potassium 4.5 mmol/L (3.4-5.1); Sodium 139 mmol/L (137-145); Total Protein 7.9 g/dL (6.3-8.2); Triglycerides 234 mg/dL (35-150)
[2022-10-04 13:22] LABS: TSH w/ Reflex to FT4 1.27 uIU/mL (0.47-4.68)
[2022-10-04 17:57] LABS: Creatinine Urine Random 60.6 mg/dL
[2022-10-04 18:16] LABS: Microalbumin Urine Random < 0.6 mg/dL (0-1.6)
== END ==
PROVIDERS: PCP Nurse Practitioner; Referring Provider Family Medicine; Visit Provider Family Medicine
DX: E03.9 Hypothyroidism, unspecified (principal); R73.03 Prediabetes; E78.1 Pure hyperglyceridemia; I10 Essential (primary) hypertension
CPT/HCPCS: 80053; 80061; 82043; 82570; 83036; 84443; 85025

== ENCOUNTER → 2023-04-17 07:42 | Outpatient (CLI) | payer MEDICARE, MEDICAID, SELFPAY ==
--- NOTE | 2023-04-17 07:43 | DI.MG.S_ITS ---
BILATERAL DIGITAL SCREENING MAMMOGRAM 3D/2D WITH CAD: 04/17/2023 CLINICAL: Routine screening. Comparison is made to exams dated: 02/13/2020 mammogram, 10/27/2017 mammogram, 03/04/2016 mammogram, and 02/29/2016 mammogram - [facility]. There are scattered areas of fibroglandular density in both breasts (category b / 25%-50% glandular tissue). Current study was also evaluated with a Computer Aided Detection (CAD) system. No significant masses, calcifications, or other findings are seen in either breast. There has been no significant interval change. IMPRESSION: NEGATIVE There is no mammographic evidence of malignancy. A 1 year screening mammogram is recommended. Based on the Tyrer Cuzick model (a risk assessment model) the patient's lifetime risk is 2.0% and her 10 year risk is 0.0%. According to the ACR, ACS, and NCCN guidelines, an annual breast MRI exam along with mammogram is recommended if the patient's lifetime risk is 20% or greater. This exam was interpreted at Station ID: [id number]. NOTE: For mammograms, a report in lay terms will be sent to the patient. Approximately 15% of breast malignancies will not be visualized mammographically. In the management of a palpable breast mass, a negative mammogram must not discourage biopsy of a clinically suspicious lesion. Electronically Signed By: Sara billings/louise:04/17/2023 17:13:18 letter sent: Normal Exam ACR BI-RADS Category 1: Negative [id number]
== END ==
LOC: MAMMO 07:43
PROVIDERS: PCP Nurse Practitioner; Referring Provider Nurse Practitioner; Visit Provider Nurse Practitioner
DX: Z12.31 Encounter for screening mammogram for malignant neoplasm of breast (principal); R92.323 Mammographic fibroglandular density, bilateral breasts
CPT/HCPCS: 77063; 77067

== ENCOUNTER → 2023-07-12 13:29 | Outpatient (CLI) | payer MEDICARE, MEDICAID, SELFPAY ==
[2023-07-12 13:58] LABS: Add Manual Diff / Slide Review NO; Basophils Absolute Auto 100 /uL (0-100); Basophils Percent Auto 0.6 % (0-2); Eosinophils Absolute Auto 200 /uL (0-450); Eosinophils Percent Auto 2.4 % (2-4); Hematocrit 44.5 % (36-46); Lymphocytes Absolute Auto 2200 /uL (1100-4500); Lymphocytes Percent Auto 25.2 % (25-40); Mean Corpuscular HGB Conc 33.7 % (30-36); Mean Corpuscular Hemoglobin 28.5 PG (26-34); Mean Corpuscular Volume 84.4 fL (80-100); Monocytes Absolute Auto 700 /uL (0-900); Monocytes Percent Auto 8.2 % (3-14); Neutrophils Absolute Auto 5700 /uL (1500-7000); Neutrophils Percent Auto 63.6 % (50-75); Platelet Count 221 X10^3/uL (150-400); Red Blood Cell Count 5.27 X10^6/uL (4.0-5.2); Red Cell Distribution Width 14.4 % (11.6-14.8); White Blood Cell Count 8.9 X10^3/uL (4.5-11.0)
[2023-07-12 14:17] LABS: Alanine Aminotransferase 28 IU/L (<35); Albumin 4.7 g/dL (3.5-5.0); Albumin Globulin Ratio 1.5 (1.0-2.8); Alkaline Phosphatase 104 U/L (38-126); Aspartate Aminotransferase 32 IU/L (14-36); BUN Creatinine Ratio 26.5 (6-22); Blood Urea Nitrogen 18 mg/dL (7-17); Calcium 9.5 mg/dL (8.4-10.2); Carbon Dioxide 29 mmol/L (22-32); Chloride 105 mmol/L (98-107); Cholesterol 175 mg/dL (140-199); Estimated Glomerular Filt Rate > 60 mL/min (>60); Globulin 3.1 g/dL (1.7-4.1); Glucose 107 mg/dL (80-110); HDL Cholesterol 50 mg/dL (40-60); HEMOLYSIS < 15 (0-50); LDL Cholesterol Calculated 82 mg/dL (<100); Potassium 4.5 mmol/L (3.4-5.1); Sodium 140 mmol/L (137-145); Total Protein 7.8 g/dL (6.3-8.2); Triglycerides 217 mg/dL (35-150)
[2023-07-12 14:46] LABS: Thyroid Stimulating Hormone 1.24 uIU/mL (0.47-4.68)
== END ==
LOC: LAB 13:30
PROVIDERS: PCP Nurse Practitioner; Referring Provider Nurse Practitioner; Visit Provider Nurse Practitioner
DX: D64.9 Anemia, unspecified (principal); R73.03 Prediabetes; K76.0 Fatty (change of) liver, not elsewhere classified; E78.1 Pure hyperglyceridemia; I10 Essential (primary) hypertension; K21.9 Gastro-esophageal reflux disease without esophagitis; E03.9 Hypothyroidism, unspecified; Z79.899 Other long term (current) drug therapy
CPT/HCPCS: 36415; 80053; 80061; 83036; 84443; 85025

== ENCOUNTER → 2023-11-03 07:39 | Outpatient (CLI) | payer MEDICARE, MEDICAID, SELFPAY ==
--- NOTE | 2023-11-03 07:40 | DI.US.S_ITS ---
PROCEDURE: US ABDOMEN LIMITED INDICATIONS: abdominal wall hernia TECHNIQUE: Real-time focused scanning was performed of the abdomen, with image documentation. COMPARISON: [facility], , US ABDOMEN COMPLETE, 02/17/2020, 13:59. FINDINGS: Focused ultrasound examination of midline upper abdominal wall just inferior to the lower sternum at patient's reported area of palpable lump shows no soft tissue mass or fluid collection. No abdominal wall defect is seen. There is a 1.1 cm wall defect involving midline abdomen just above the umbilicus contains fat only. IMPRESSION: 1. Small supraumbilical hernia containing fat only as above. 2. No hernia or abdominal wall defect is seen in upper abdomen inferior to the sternum. Dictated by: Joshua Heller M.D. on 11/04/2023 at 17:41 Approved by: Joshua Heller M.D. on 11/04/2023 at 17:42
== END ==
PROVIDERS: PCP Family Medicine; Referring Provider Family Medicine; Visit Provider Family Medicine
DX: K42.9 Umbilical hernia without obstruction or gangrene (principal); R19.00 Intra-abdominal and pelvic swelling, mass and lump, unspecified site
CPT/HCPCS: 76705

== ENCOUNTER → 2024-01-13 08:25 | Outpatient (CLI) | payer MEDICARE, MEDICAID, SELFPAY ==
[2024-01-13 09:27] LABS: Add Manual Diff / Slide Review NO; Basophils Absolute Auto 0 /uL (0-100); Basophils Percent Auto 0.4 % (0-2); Eosinophils Absolute Auto 100 /uL (0-450); Hematocrit 44.1 % (36-46); Hemoglobin 14.7 g/dL (12.0-16.0); Lymphocytes Absolute Auto 1600 /uL (1100-4500); Lymphocytes Percent Auto 14.2 % (25-40); Mean Corpuscular HGB Conc 33.3 % (30-36); Mean Corpuscular Hemoglobin 27.9 PG (26-34); Mean Corpuscular Volume 83.8 fL (80-100); Monocytes Absolute Auto 1400 /uL (0-900); Monocytes Percent Auto 12.7 % (3-14); Neutrophils Absolute Auto 7800 /uL (1500-7000); Neutrophils Percent Auto 71.7 % (50-75); Platelet Count 228 X10^3/uL (150-400); Red Blood Cell Count 5.26 X10^6/uL (4.0-5.2); Red Cell Distribution Width 15.3 % (11.6-14.8); White Blood Cell Count 10.9 X10^3/uL (4.5-11.0)
[2024-01-13 09:36] LABS: Hemoglobin A1C% w Est Avg Glu 5.6 % (4.0-6.0)
[2024-01-13 09:41] LABS: Alanine Aminotransferase 37 IU/L (<35); Albumin 3.6 g/dL (3.5-5.0); Alkaline Phosphatase 105 U/L (38-126); Aspartate Aminotransferase 101 IU/L (14-36); BUN Creatinine Ratio 13.2 (6-22); Bilirubin Total 1.3 mg/dL (0.2-1.3); Blood Urea Nitrogen 10 mg/dL (7-17); Calcium 9.8 mg/dL (8.4-10.2); Carbon Dioxide 26 mmol/L (22-32); Chloride 102 mmol/L (98-107); Cholesterol 112 mg/dL (140-199); Estimated Glomerular Filt Rate > 60 mL/min (>60); Globulin 3.7 g/dL (1.7-4.1); Glucose 94 mg/dL (80-110); HDL Cholesterol 27 mg/dL (40-60); HEMOLYSIS 16 (0-50); LDL Cholesterol Calculated 53 mg/dL (<100); Potassium 4.3 mmol/L (3.4-5.1); Sodium 133 mmol/L (137-145); Total Protein 7.3 g/dL (6.3-8.2); Triglycerides 159 mg/dL (35-150)
[2024-01-13 10:12] LABS: TSH w/ Reflex to FT4 6.51 uIU/mL (0.47-4.68)
[2024-01-13 18:40] LABS: Free T4, Direct Thyroxine 2.29 ng/dL (0.78-2.19)
== END ==
PROVIDERS: PCP Family Medicine; Referring Provider Family Medicine; Visit Provider Family Medicine
DX: E03.9 Hypothyroidism, unspecified (principal); R73.03 Prediabetes; I10 Essential (primary) hypertension; E78.1 Pure hyperglyceridemia; Z79.899 Other long term (current) drug therapy
CPT/HCPCS: 36415; 80053; 80061; 83036; 84439; 84443; 85025

== ENCOUNTER → 2024-01-17 11:45 | Outpatient (CLI) | payer MEDICARE, MEDICAID, SELFPAY | PROVIDERS: PCP Family Medicine; Visit Provider Family Medicine | DX: R31.9 Hematuria, unspecified (principal) | CPT/HCPCS: 87086 ==

== ENCOUNTER → 2024-01-29 12:16 | Outpatient (CLI) | payer MEDICARE, MEDICAID, SELFPAY ==
[2024-01-29 13:31] LABS: Appearance Urine UA CLEAR; Bilirubin Urine UA 1+ (NEGATIVE); Color Urine UA YELLOW; Glucose Urine UA NEGATIVE (Negative); Ketones Urine UA NEGATIVE (NEGATIVE); Leukocyte Esterase Urine UA NEGATIVE (NEGATIVE); Nitrite Urine UA NEGATIVE (Negative); Occult Blood Urine UA NEGATIVE (Negative); Protein Urine UA 1+ (Negative); Specific Gravity Urine UA 1.025 (1.000-1.035)
[2024-01-29 13:32] LABS: pH Urine UA 5.5 (4.5-8.0)
[2024-01-29 13:49] LABS: Bacteria Urine Few (2-10); RBC Urine 0-1/HPF (0-5/HPF); Squamous Epithelial Cell Urine 1-5 /HPF (0-5/HPF); Transitional Epi Cells Urine 0-1/HPF (0-5/HPF); Urine Volume 10mL (spun); WBC Urine 1-5/HPF (0-5/HPF)
[2024-01-29 13:50] LABS: Culture Indicated Urine Specimen Cultured; Hyaline Casts Urine 5-10/LPF; Mucus Urine 2+ (Negative)
[2024-01-29 14:04] LABS: Ictotest Urine Negative (Negative)
== END ==
PROVIDERS: PCP Family Medicine; Visit Provider Family Medicine
DX: N39.0 Urinary tract infection, site not specified (principal)
CPT/HCPCS: 81003; 81015; 87086

== ENCOUNTER 2024-02-21 09:50 | Inpatient (IN) | payer MEDICARE, MEDICAID, SELFPAY ==
[2024-02-21] VITALS (31 sets, daily range): BP systolic 101–164; BP diastolic 45–88; PULSE 92–100; RESP 14–24; TEMP 36.7–37.3; O2SAT 91–100; BMI 37.3; BMI 36.0
--- NOTE | 2024-02-21 10:15 | ED.GENADULT ---
HPI - General Adult General Chief complaint: Shortness of Breath/Dyspnea Stated complaint: Poss. 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 Over the last number of days increasing confusion, lower extremity swelling, slight wheeze, difficulty swallowing, increased hand tremor. Recent staging done, chemo anticipated however has not started and patient does not yet have a port. She had a CT-guided biopsy on February 14 of her liver lesion. On February 10 she had an upper endoscopy. She was in the hospital from February 06 through the with persistent weakness. She has had significant decline since discharge home. Daughter and grandson have been caring for her and are frustrated with access to care issues. Was told follow up with Oncology however need referrals and their primary care physician isn't back in the office till Monday. They have been making multiple phone calls to try to find alternatives. In the recent hospital stay the patient had indicated that she would like to try chemotherapy to extend her life span. At this point patient is confused enough that she does not even recognize her daughter, weak enough that she is unable to sit or roll in bed without assistance. Now having significant difficulty swallowing and even understanding cuing from her daughter with swallowing. Endoscopy done on the did not show structural esophageal abnormalities to explain the swallow difficulty. Daughter notes that her overall edema has been increasing. She has not having any fevers Related Data Previous Rx's Medication Instructions Recorded clobetasol 0.05 % topical cream 1 applic topical QAM AND QPM #30 03/21/23 grams hydrochlorothiazide 25 mg tablet 25 mg PO DAILY edema #90 tabs 03/21/23 ibuprofen 800 mg tablet 800 mg PO Q8H PRN pain #90 tabs 03/21/23 Compression Stockings Large #1 ea 07/12/23 hydrocortisone 2.5 % topical cream 1 applic OH QD-BID PRN hemorrhoids 10/31/23 with perineal applicator #30 grams (Procto-Med ) levothyroxine 112 mcg tablet 112 mcg PO DAILY #90 tabs 11/16/23 docusate sodium 100 mg capsule 100 mg PO BID #60 caps 01/29/24 lactulose 20 gram/30 mL oral 30 g (45 mL) PO BID #2,880 mL 01/29/24 solution sulfamethoxazole 800 1 tab PO BID #14 tabs 01/29/24 mg-trimethoprim 160 mg tablet Allergies Allergy/AdvReac Type Severity Reaction Status Date / Time oxycodone AdvReac Severe tremors, Verified 01/29/24 11:22 numbness, itching metronidazole AdvReac Mild DIZZINESS Verified 01/29/24 11:22 Review of Systems Review of Systems Narrative: Pertinent positive and negative findings as per HPI Patient History Medical History Constipation UTI (urinary tract infection) Elevated serum free T4 level Elevated TSH Abdominal wall bulge Keratotic lesion Elevated red blood cell count Varicose veins of bilateral lower extremities with pain Hepatic steatosis Pre-diabetes Gas pain Hypertriglyceridemia Left shoulder pain Left eye pain Hypertension Temporal pain Muscle spasm Low back pain Neck pain Left upper quadrant pain Right upper quadrant abdominal pain (10/29/18) Abnormal [id number] ratio Elevated BUN Elevated blood pressure reading in office without diagnosis of hypertension Upper respiratory infection, viral Uterine mass Uterine mass Lower urinary tract symptoms (LUTS) Sleep pattern disturbance History of headache Colitis Pelvic pain Endometrial mass Morbid obesity Postmenopausal Hemorrhoids Irritable bowel syndrome Hx of varicose veins (Unknown) Cataract, left eye (~05/2012) Migraines (Unknown) GERD (gastroesophageal reflux disease) (Unknown) Positive PPD (Unknown) Hypothyroidism (Unknown) IBS (irritable bowel syndrome) (Unknown) Surgical History Hx of surgical procedure (02/2017) Family History Brother Other specified diabetes mellitus with unspecified complications Father Cancer Mother Cancer Sister Cancer Social History household members: family Smoking Status: Never smoker second hand exposure: Yes (only when I go to the casino, but I go to the non-smoking area.) alcohol intake: never substance use type: does not use Smoking Status: Never smoker alcohol intake frequency: other Exam Initial Vital Signs Initial Vital Signs: Vital Signs Temperature 99.2 F 02/21/24 09:50 Pulse Rate 99 H 02/21/24 09:50 Respiratory Rate 18 02/21/24 09:50 Blood Pressure 127/60 02/21/24 09:50 Pulse Oximetry 98 02/21/24 09:50 Oxygen Delivery Method Room Air 02/21/24 09:50 General: Chronically ill, fatigued appearing will smile to direct questions HEENT: Moist mucous membranes, normal sclera with reactive pupils, Respiratory: Lungs mild bibasilar crackles Cardiac: Regular rate and rhythm no murmurs Abdomen: Soft, mild ascites. No rebound or guarding Skin: Pale, she has anasarca to mid sternum Neurologic: Globally weak, decreasing overall responsiveness, she is moving all extremities Extremities: Increasing lower extremity edema Psych: Confused, easily falling asleep Course Orders Ordered: ED Orders 02/21/24 10:06 Complete Blood Count AUTO DIFF Stat Lactate (Lactic Acid) Stat Lipase Stat Magnesium Stat 02/21/24 10:10 Urinalysis and Microscopic Stat 02/21/24 11:22 Ammonia (NH3) Stat Comprehensive Metabolic Panel Stat 02/21/24 11:27 Consult to [facility]ATOR - Respiratory Coordinator Stat 02/21/24 12:35 Consult to [facility] - Respiratory Coordinator Stat Hydromorphone HCl (Hydromorphone 0.5 Mg Inj) 0.5 mg IV Q15MIN PRN PRN Reason: Pain, Last Admin: 02/21/24 11:15 Dose: 0.5 mg Documented By: LAILA Discontinued Medications Sodium Chloride (Normal Saline 0.9%) 1,000 mls @ 1,000 mls/hr IV BOLUS ONE Stop: 02/21/24 11:16 Last Infusion: 02/21/24 11:13 Dose: Infused Documented By: Admin: 02/21/24 10:28 Dose: 1,000 mls/hr Documented By: KATELYN Ondansetron HCl (Ondansetron 4 Mg/2 Ml Inj) 4 mg IV NOW ONE Stop: 02/21/24 10:18 Last Admin: 02/21/24 10:28 Dose: Not Given Documented By: KATELYN Vital Signs Vital signs: Vital Signs - 8 hr 02/21/24 09:54 02/21/24 09:55 02/21/24 09:55 Pulse Rate 99 H 99 H Respiratory Rate Blood Pressure 127/60 Pulse Oximetry 96 98 Oxygen Delivery Method 02/21/24 10:00 02/21/24 10:00 02/21/24 10:14 Pulse Rate 96 H 97 H Respiratory Rate 17 23 Blood Pressure 116/59 L Pulse Oximetry 97 98 Oxygen Delivery Method Room Air 02/21/24 10:14 02/21/24 10:30 02/21/24 10:30 Pulse Rate 96 H Respiratory Rate 20 Blood Pressure 115/57 L 129/65 Pulse Oximetry 98 Oxygen Delivery Method 02/21/24 11:00 02/21/24 11:00 02/21/24 11:30 Pulse Rate 95 H 94 H Respiratory Rate 21 20 Blood Pressure 126/88 Pulse Oximetry 99 100 Oxygen Delivery Method 02/21/24 11:30 02/21/24 12:00 02/21/24 12:01 Pulse Rate 93 H 92 H Respiratory Rate 22 22 Blood Pressure 138/63 Pulse Oximetry 92 95 Oxygen Delivery Method 02/21/24 12:01 02/21/24 12:30 02/21/24 12:30 Pulse Rate 93 H Respiratory Rate 22 Blood Pressure 117/55 L 139/64 Pulse Oximetry 97 Oxygen Delivery Method 02/21/24 13:00 02/21/24 13:01 02/21/24 13:01 Pulse Rate 93 H 93 H Respiratory Rate 20 18 Blood Pressure 155/64 H Pulse Oximetry 97 97 Oxygen Delivery Method 02/21/24 13:30 02/21/24 13:31 02/21/24 13:31 Pulse Rate 92 H 93 H Respiratory Rate 21 19 Blood Pressure 143/60 H Pulse Oximetry 95 93 Oxygen Delivery Method 02/21/24 14:00 02/21/24 14:00 02/21/24 14:30 Pulse Rate 92 H 92 H Respiratory Rate 20 16 Blood Pressure 135/61 Pulse Oximetry 95 93 Oxygen Delivery Method 02/21/24 14:31 02/21/24 14:31 02/21/24 15:00 Pulse Rate 94 H Respiratory Rate 19 Blood Pressure 143/56 H 144/58 H Pulse Oximetry 93 Oxygen Delivery Method 02/21/24 15:00 02/21/24 15:30 02/21/24 15:31 Pulse Rate 93 H 92 H Respiratory Rate 22 21 Blood Pressure 154/61 H Pulse Oximetry 94 92 Oxygen Delivery Method 02/21/24 15:31 02/21/24 16:00 02/21/24 16:01 Pulse Rate 93 H 92 H Respiratory Rate 19 21 Blood Pressure 164/61 H Pulse Oximetry 92 94 Oxygen Delivery Method 02/21/24 16:01 02/21/24 16:30 02/21/24 16:31 Pulse Rate 93 H 96 H Respiratory Rate 18 23 Blood Pressure 155/64 H Pulse Oximetry 93 94 Oxygen Delivery Method 02/21/24 16:31 02/21/24 17:00 02/21/24 17:01 Pulse Rate 96 H 96 H 97 H Respiratory Rate 23 18 24 Blood Pressure Pulse Oximetry 94 94 94 Oxygen Delivery Method 02/21/24 17:01 02/21/24 17:30 02/21/24 17:31 Pulse Rate 96 H Respiratory Rate 14 Blood Pressure 133/57 L 101/45 L Pulse Oximetry 91 Oxygen Delivery Method 02/21/24 17:31 Pulse Rate 96 H Respiratory Rate 23 Blood Pressure Pulse Oximetry 91 Oxygen Delivery Method Medical Decision Making Lab Data 02/21/24 10:06 02/21/24 11:22 Labs: Lab Results 02/21/24 02/21/24 02/21/24 Range/Units 10:06 10:10 11:22 WBC 12.6 H (4.5-11.0) X10^3/uL RBC 5.16 (4.0-5.2) X10^6/uL Hgb 14.1 (12.0-16.0) g/dL Hct 43.2 (36-46) % MCV 83.8 (80-100) fL MCH 27.3 (26-34) PG MCHC 32.6 (30-36) % RDW 18.7 H (11.6-14.8) % Plt Count 171 (150-400) X10^3/uL Neut % (Auto) 80.5 H (50-75) % Lymph % (Auto) 7.2 L (25-40) % Hendry % (Auto) 11.5 (3-14) % Eos % (Auto) 0.1 L (2-4) % Baso % (Auto) 0.7 (0-2) % Neut # (Auto) 03774 H (9300-3525) /uL Lymph # (Auto) 900 L (1472-9401) /uL Hendry # (Auto) 1400 H (0-900) /uL Eos # (Auto) 0 (0-450) /uL Baso # (Auto) 100 (0-100) /uL Sodium 142 (137-145) mmol/L Potassium 4.3 (3.4-5.1) mmol/L Chloride 112 H (98-107) mmol/L Carbon Dioxide 19 L (22-32) mmol/L BUN 109 H* (7-17) mg/dL Creatinine 1.70 H (0.52-1.04) mg/dL Estimated GFR 31 L (>60) mL/min BUN/Creatinine Ratio 64.1 H (6-22) Glucose 82 (80-110) mg/dL Lactate 3.8 H (0.7-2.1) mmol/L Calcium 10.5 H (8.4-10.2) mg/dL Magnesium 2.9 H (1.6-2.3) mg/dL Total Bilirubin 2.3 H (0.2-1.3) mg/dL AST 447 H (14-36) IU/L ALT 92 H (<35) IU/L Alkaline Phosphatase 103 (38-126) U/L Ammonia 26 (9-30) umol/L Total Protein 6.3 (6.3-8.2) g/dL Albumin 2.6 L (3.5-5.0) g/dL Globulin 3.7 (1.7-4.1) g/dL Albumin/Globulin Ratio 0.7 L (1.0-2.8) Lipase 448 H (23-300) U/L Urine Color Yellow Urine Appearance Clear Urine pH 5.0 (4.5-8.0) Ur Specific Kat[place] 1.025 (1.000-1.035) Urine Protein Negative (Negative) Urine Glucose (UA) Negative (Negative) g/dL Urine Ketones Negative (NEGATIVE) Urine Occult Blood Negative (Negative) Urine Nitrate Negative (Negative) Urine Bilirubin Negative (NEGATIVE) Urine Urobilinogen 0.2 (0.2) E.U./dL Ur Leukocyte Esterase Negative (NEGATIVE) Urine RBC None seen (0-5/HPF) Urine WBC None seen (0-5/HPF) Ur Squamous Epith Cells None seen (0-5/HPF) Urine Bacteria None seen (None) Ur Culture Indicated? Cult not indicated Vol Urine Centrifuged 10ml (spun) 02/21/24 Range/Units 12:13 WBC (4.5-11.0) X10^3/uL RBC (4.0-5.2) X10^6/uL Hgb (12.0-16.0) g/dL Hct (36-46) % MCV (80-100) fL MCH (26-34) PG MCHC (30-36) % RDW (11.6-14.8) % Plt Count (150-400) X10^3/uL Neut % (Auto) (50-75) % Lymph % (Auto) (25-40) % Hendry % (Auto) (3-14) % Eos % (Auto) (2-4) % Baso % (Auto) (0-2) % Neut # (Auto) (5353-0905) /uL Lymph # (Auto) (9200-2675) /uL Hendry # (Auto) (0-900) /uL Eos # (Auto) (0-450) /uL Baso # (Auto) (0-100) /uL Sodium (137-145) mmol/L Potassium (3.4-5.1) mmol/L Chloride (98-107) mmol/L Carbon Dioxide (22-32) mmol/L BUN (7-17) mg/dL Creatinine (0.52-1.04) mg/dL Estimated GFR (>60) mL/min BUN/Creatinine Ratio (6-22) Glucose (80-110) mg/dL Lactate 3.2 H (0.7-2.1) mmol/L Calcium (8.4-10.2) mg/dL Magnesium (1.6-2.3) mg/dL Total Bilirubin (0.2-1.3) mg/dL AST (14-36) IU/L ALT (<35) IU/L Alkaline Phosphatase (38-126) U/L Ammonia (9-30) umol/L Total Protein (6.3-8.2) g/dL Albumin (3.5-5.0) g/dL Globulin (1.7-4.1) g/dL Albumin/Globulin Ratio (1.0-2.8) Lipase (23-300) U/L Urine Color Urine Appearance Urine pH (4.5-8.0) Ur Specific Katy (1.000-1.035) Urine Protein (Negative) Urine Glucose (UA) (Negative) g/dL Urine Ketones (NEGATIVE) Urine Occult Blood (Negative) Urine Nitrate (Negative) Urine Bilirubin (NEGATIVE) Urine Urobilinogen (0.2) E.U./dL Ur Leukocyte Esterase (NEGATIVE) Urine RBC (0-5/HPF) Urine WBC (0-5/HPF) Ur Squamous Epith Cells (0-5/HPF) Urine Bacteria (None) Ur Culture Indicated? Vol Urine Centrifuged MDM Narrative Medical decision making narrative: CC: Progressive dysphagia, confusion, weakness, increased tremor, continued abdominal pain Complicating co-morbidities: Recently diagnosed metastatic cholangiocarcinoma Data collected from: patient Medical records reviewed: Records from [facility] are reviewed. On February 10, 2009 days ago, she had an upper endoscopy with biopsy for diagnostic purposes, confirming cholangiocarcinoma Patient was admitted to [facility] from February 06 to February 16 for weakness, dyspnea, difficulty swallowing and acute kidney injury. On discharge instructions were to follow up [facility] and [facility] Imaging CT scan chest abdomen and pelvis on February 12 shows interval development of atelectasis in the right middle lobe no obvious obstruction. Persistent moderate ascites and periportal adenopathy. Left upper lobe subpleural solid nodule noted. Previously noted liver masses seen on CT scan from January 28 are again noted. Differential considered: Progressive metastatic cholangiocarcinoma, possibility of brain Mets, significant electrolyte abnormalities such as acute hyperkalemia or recurrent acute kidney injury Exam documented above, pertinent findings include: Patient has anasarca to the midsternum, mild ascites without abdominal pain. No murmurs, minimal bibasilar crackles. she is globally weak and confused Lab Test results independently reviewed as above. Pertinent findings: CBC shows mild leukocytosis no anemia Chemistries show worsening acute kidney injury with creatinine at 1.7, BUN and 109. Lactic level is elevated at 3.2 Calcium level continues to increase currently at 10.5 Magnesium level is elevated 2.9 Bilirubin AST ALT are all continuing to increase with continued increase since last checked on the at [facility] Lipase is elevated at 448 for the 1st time Urine does not show acute infection Ammonia level is not elevated Treatments: Patient is given a L fluid Zofran half a mg of Dilaudid for pain control Discussion: 78-year-old woman with recently diagnosed metastatic cancer, per CT guided ultrasound biopsy done on the we now know it is a cholangiocarcinoma. Over the last 15 days she has progressive weakness, was in the hospital at [facility] for 10 of those days with worsening symptoms since discharge. Her daughter is concerned that there was delay to overall diagnosis, difficulty in obtaining referrals to actually talk to Oncology to see if chemotherapy might be of any benefit. Patient comes in today significantly weak, encephalopathic increasing anasarca and reports of significant dysphagia. In actually sounds like she either does not want to drink or is having difficulty remembering how to actually use a straw. Her daughter reports that she spits the straw out and is spitting out any bites of applesauce that have medications mixed in. Labs show worsening acute kidney injury, calcium levels and increasing LFTs now with elevated lipase as well. Long discussion regarding options, prognosis, benefits of oncology consultation and chemotherapy. At this point the patient is getting into the active dying phase of her disease process. With long discussion family would like to consider full comfort hospice care with discharge to a nursing facility if at all possible. Social work has talked with hospice house in [place]. They have not been able to give a definitive decision but hope to be able to do so tomorrow. Spoke with Dr. Clark and patient will be admitted to [facility] for metastatic cholangiocarcinoma with progressive weakness, progressive renal failure, anasarca. Patient has not required any medication she seems to be quite comfortable drifting in and out of sleep. Not indicating pain nor interested in eating or drinking. We will discuss plan with family Discharge Plan Departure Patient Disposition: Admitted as Observation Clinical Impression: Metastatic cholangiocarcinoma, Anasarca, Acute kidney injury, Acute metabolic encephalopathy Prescriptions: No Action hydrochlorothiazide 25 mg tablet 25 mg PO DAILY Qty: 90 3RF Rx Instructions: Take 1 tab daily para pression ibuprofen 800 mg tablet 800 mg PO Q8H PRN (Reason: pain) Qty: 90 5RF clobetasol 0.05 % cream 1 applic topical QAM AND QPM Qty: 30 2RF Rx Instructions: Use twice daily for itching or rash (DME) Compression Stockings Large See Rx Instructions .Route .MEDSUPPLY Qty: 1 0RF Rx Instructions: Use daily to help prevent swelling and pain in legs hydrocortisone [Procto-Med HC] 2.5 % cream with perineal applicator 1 applic OH QD-BID PRN (Reason: hemorrhoids) Qty: 30 2RF levothyroxine 112 mcg tablet 112 mcg PO DAILY Qty: 90 3RF Rx Instructions: TAKE 1 TABLET DAILY ON AN EMPTY STOMACH FOR THYROID docusate sodium 100 mg capsule 100 mg PO BID Qty: 60 0RF lactulose 20 gram/30 mL solution 30 g PO BID Qty: 2880 0RF sulfamethoxazole-trimethoprim 800-160 mg tablet 1 tab PO BID Qty: 14 0RF Referrals: Shashi Mesa DO [Primary Care Provider] -
[2024-02-21] MEDS: SODIUM CHLORIDE 0.9% 1,000 ML 1000 ML IV (10:28)
[2024-02-21 10:32] LABS: Lactate (Lactic Acid) 3.8 mmol/L (0.7-2.1); Lipase 448 U/L (23-300); Magnesium 2.9 mg/dL (1.6-2.3)
[2024-02-21 10:39] LABS: Appearance Urine UA CLEAR; Bilirubin Urine UA NEGATIVE (NEGATIVE); Color Urine UA YELLOW; Glucose Urine UA NEGATIVE (Negative); Ketones Urine UA NEGATIVE (NEGATIVE); Leukocyte Esterase Urine UA NEGATIVE (NEGATIVE); Nitrite Urine UA NEGATIVE (Negative); Occult Blood Urine UA NEGATIVE (Negative); Protein Urine UA NEGATIVE (Negative); Specific Gravity Urine UA 1.025 (1.000-1.035); Urine Volume 10mL (spun); Urobilinogen Urine UA 0.2 E.U./dL (0.2)
[2024-02-21 10:44] LABS: Bacteria Urine None Seen; Culture Indicated Urine Cult Not Indicated; RBC Urine None Seen (0-5/HPF); Squamous Epithelial Cell Urine None Seen (0-5/HPF); WBC Urine None Seen (0-5/HPF)
[2024-02-21 11:04] LABS: Add Manual Diff / Slide Review NO; Basophils Absolute Auto 100 /uL (0-100); Basophils Percent Auto 0.7 % (0-2); Eosinophils Absolute Auto 0 /uL (0-450); Eosinophils Percent Auto 0.1 % (2-4); Hematocrit 43.2 % (36-46); Hemoglobin 14.1 g/dL (12.0-16.0); Lymphocytes Absolute Auto 900 /uL (1100-4500); Lymphocytes Percent Auto 7.2 % (25-40); Mean Corpuscular HGB Conc 32.6 % (30-36); Mean Corpuscular Hemoglobin 27.3 PG (26-34); Mean Corpuscular Volume 83.8 fL (80-100); Monocytes Absolute Auto 1400 /uL (0-900); Monocytes Percent Auto 11.5 % (3-14); Neutrophils Absolute Auto 10200 /uL (1500-7000); Neutrophils Percent Auto 80.5 % (50-75); Platelet Count 171 X10^3/uL (150-400); Red Blood Cell Count 5.16 X10^6/uL (4.0-5.2); Red Cell Distribution Width 18.7 % (11.6-14.8); White Blood Cell Count 12.6 X10^3/uL (4.5-11.0)
[2024-02-21] MEDS: HYDROMORPHONE 0.5 MG INJ IV (11:15)
[2024-02-21 11:41] LABS: Ammonia (NH3) 26 umol/L (9-30)
[2024-02-21 11:43] LABS: Alanine Aminotransferase 92 IU/L (<35); Albumin 2.6 g/dL (3.5-5.0); Albumin Globulin Ratio 0.7 (1.0-2.8); Alkaline Phosphatase 103 U/L (38-126); Aspartate Aminotransferase 447 IU/L (14-36); BUN Creatinine Ratio 64.1 (6-22); Bilirubin Total 2.3 mg/dL (0.2-1.3); Calcium 10.5 mg/dL (8.4-10.2); Carbon Dioxide 19 mmol/L (22-32); Chloride 112 mmol/L (98-107); Estimated Glomerular Filt Rate 31 mL/min (>60); Globulin 3.7 g/dL (1.7-4.1); Glucose 82 mg/dL (80-110); HEMOLYSIS 117 (0-50); Potassium 4.3 mmol/L (3.4-5.1); Sodium 142 mmol/L (137-145); Total Protein 6.3 g/dL (6.3-8.2)
[2024-02-21 11:45] LABS: Blood Urea Nitrogen 109 mg/dL (7-17)
[2024-02-21 11:56] LABS: Reflexed Lactate in 2 Hours Y
[2024-02-21 12:27] LABS: Lactate 2HR (Lactic Acid Rflx) 3.2 mmol/L (0.7-2.1)
--- NOTE | 2024-02-21 12:41 | PC.NURSE ---
Pt straight cathed for urine sample with ADRIAN Richardson and ADRIAN Ledezma assistance. No complications. Pt tolerated well. Urine clear and slightly orange tint. .
--- NOTE | 2024-02-21 13:51 | CM.DANOTE ---
ED [employer] DCP Assessment Note: Pt is a 78yo female, resident of [place], presented to the ED for abdominal pain. Pt has a new CA dx of cholangiocarcinoma. Pt lives in a house with her daughter, Hannah. Pt's Primary Care Provider is Dr. Shashi Mesa and insurance is Medicare and Medicaid QI-1 Program. Reviewed chart and discussed with multidisciplinary team pt's medical status and initial discharge needs. Per ED Provider, pt is actively dying and will be placed on comfort care. [employer] consulted to assist with transfer to SNF and hospice referral. ED SILK [employer] met w/patient at bedside; introduced self and role. Present in the room is pt's daughter, Hannah, and grandchildren, Annette and Jared. Patient was found in bed, eyes closed and endorsing pain to family. Pt daughter, Hannah, is the primary historian for patient. Pt daughter confirms living situation and endorses family preference for pt to be admitted at a Assisted Facility with Hospice services. ED [employer] provided Medicare Choice list and family identified preference for [facility] SNF. ED [employer]IL[employer] discussed with family that Medicare will cover Hospice services but not room/board at a SNF due to comfort care. ED SIL[facility] [employer] called [facility] and discussed pt, it is reported that they are a couple days out for start of care; requests referral to be sent if appropriate. ED SIL[employer] called [facility] in [facility] and spoke with Valerie. It is reported they have some availability, requests referral to be faxed and review if pt is QIP status. ED [employer]IL[employer] sent clinicals for review. ED SIL[facility] [employer] called [facility] SN[facility] and spoke with Jessenia. It is reported they have availability, requests referral to be faxed. ED [employer] reviewed possible home plan with hospice, it is identified that pt house not conducive to a home hospice plan/equipment. Pt family hoping for [facility] placement if available. Plan: Hospice placement pending, ED staff will follow closely for coordination of discharge plans. BRAYAN Fernandez Discharge Planning/Care Management CM Discharge Assessment Start: 02/21/24 13:09 Freq: Status: Active Protocol: Document 02/21/24 13:09 MW (Rec: 02/21/24 13:11 MW [id number]) Discharge Planning Assessment Assigned Kalsominer MANNY Munroe DPOA/Assigned Designee Name Hannah Stephens, Daughter Contact Information [phone] Advance Directives? No History Provided By Family Member,Medical Record Has Patient been admitted in last 30 Yes days? Comment Admitted at [facility] on 02/06-02/16. Prior Living Arrangements House Comment [place] Household Members family Type of transporation used prior to Relies on Others admit Independent with ADL's No Is patient alert and oriented? Yes Caregiver for Another No Patient/Family Preference Assisted Facility Comment SNF with hospice Barriers to Discharge No Discharge Plan Hospice Referrals Initiated None needed If patient plan is SNF: Has PASSR been Yes completed? Medicare Choice List Provided Yes Medicare choice list reviewed on patient,family electronic tablet with SNF/HH Preference Preference for [facility] but Not at [facility] is too far, Not [facility] facility. Whiteboard Updated in Patient Room with No name and ext. # of Kalsominer Review Status In Process Please Provide Date Initial DC 02/21/24 Assessment Was Performed Next Review Type Continued Stay Review
--- NOTE | 2024-02-21 14:27 | PC.NURSE ---
patient's family members stated that the patient has been having decreased ability to eat and swallow anything other than liquids. She has been nauseated and not wanting to eat anything and was given medications from a previous facility that helped her appetite but was unable to obtain the RX after DC due to the RX being left in the transport vehicle. The patient went home and symptoms of nausea returned. She recently has had trouble swallowing her crushed pills in thickened material due to the perception by the daughter that she has forgotten how to swallow. The patient moves the food around in her mouth and then ends up spitting it out. Swallow screen was not done due to the patient sleeping.
--- NOTE | 2024-02-21 14:34 | PC.NURSE ---
Patient family states that she has not been taking PO foods well for a few days due to nausea. They state it seems that she forgot how to eat and ends up spitting the food out after rolling the food around in her mouth. Her medication has to be crushed up and put into thickened material which she no longer is able to get. A swallow screen has not been carried out at this time due to the patient sleeping.
--- NOTE | 2024-02-21 17:40 | PC.NURSE ---
Patients family told this CRM BUSINESS ANALYST that the patient has not had a bowel movement in five days. This CRM BUSINESS ANALYST told family that I will make the patient RN aware. ADRIAN Pedersen made aware @0813.
--- NOTE | 2024-02-21 18:04 | P.HP_ITS ---
History of Present Illness History of Present Illness Date Patient Seen: 02/21/24 Time Patient Seen: 18:04 Chief complaint: Poss. UTI Narrative: This is a 78-year-old female with a history of hepatic steatosis, hypertension, elevated BUN, GERD and hypothyroidism who presents with a new diagnosis of cholangiocarcinoma. She apparently collapsed about 3 weeks ago and was taken to the hospital in [place] where an abdominal needle biopsy was done that documented her new diagnosis of cholangiocarcinoma with kidney/liver metastasis. She was in the hospital for about 10 days and has been home now for about 4 days. Family bring her in because of increasing confusion, weakness and inability to swallow/eat. She had been recommended to go to a custodial facility but they felt they could manage her at home until this disease process progressed. She had been hoping to participate in chemotherapy treatments but has been waiting for a referral to Oncology in [place]. Her admission today is for comfort care, pending possible transfer to hospice house or tentatively end of life care at a custodial facility. Her bilirubin level is 2.3 with an AST of 447 and an ALT of 92. The lactic acid level is 3.2 and the calcium is 10.5. The white blood count is 12.6 with a hemoglobin of 14.1. The BUN is 109 with a creatinine of 1.70. She had been receiving morphine in the hospital but on discharge was only on hydrocodone. She denies abdominal pain, participates/engages very little with the exam and interview, but has a very tender area of fullness in the right upper quadrant. [facility] Medical History (Updated 02/21/24 @ 18:05 by Mendez Alegre MD) Bile duct cancer Constipation UTI (urinary tract infection) Elevated serum free T4 level Elevated TSH Abdominal wall bulge Keratotic lesion Elevated red blood cell count Varicose veins of bilateral lower extremities with pain Hepatic steatosis Pre-diabetes Gas pain Hypertriglyceridemia Left shoulder pain Left eye pain Hypertension Temporal pain Muscle spasm Low back pain Neck pain Left upper quadrant pain Right upper quadrant abdominal pain (10/29/18) Abnormal EKG-[id number] ratio Elevated BUN Elevated blood pressure reading in office without diagnosis of hypertension Upper respiratory infection, viral Uterine mass Uterine mass Lower urinary tract symptoms (LUTS) Sleep pattern disturbance History of headache Colitis Pelvic pain Endometrial mass Morbid obesity Postmenopausal Hemorrhoids Irritable bowel syndrome Hx of varicose veins (Unknown) Cataract, left eye (~05/2012) Migraines (Unknown) GERD (gastroesophageal reflux disease) (Unknown) Positive PPD (Unknown) Hypothyroidism (Unknown) IBS (irritable bowel syndrome) (Unknown) Surgical History Hx of surgical procedure (02/2017) Family History Brother Other specified diabetes mellitus with unspecified complications Father Cancer Mother Cancer Sister Cancer Social History household members: family Smoking Status: Never smoker second hand exposure: Yes (only when I go to the casino, but I go to the non- smoking area.) alcohol intake: never substance use type: does not use Meds Home Medications and Allergies Home Medications Medication Instructions Recorded Confirmed Type clobetasol 0.05 % topical cream 1 applic topical QAM AND QPM #30 03/21/23 01/29/24 Rx grams hydrochlorothiazide 25 mg tablet 25 mg PO DAILY edema #90 tabs 03/21/23 01/29/24 Rx ibuprofen 800 mg tablet 800 mg PO Q8H PRN pain #90 tabs 03/21/23 01/29/24 Rx Compression Stockings Large #1 ea 07/12/23 01/29/24 Rx hydrocortisone 2.5 % topical cream 1 applic ME QD-BID PRN hemorrhoids 10/31/23 01/29/24 Rx with perineal applicator #30 grams (Procto-Med HC) levothyroxine 112 mcg tablet 112 mcg PO DAILY #90 tabs 11/16/23 01/29/24 Rx docusate sodium 100 mg capsule 100 mg PO BID #60 caps 01/29/24 01/29/24 Rx lactulose 20 gram/30 mL oral 30 g (45 mL) PO BID #2,880 mL 01/29/24 01/29/24 Rx solution sulfamethoxazole 800 1 tab PO BID #14 tabs 01/29/24 01/29/24 Rx mg-trimethoprim 160 mg tablet Allergies Allergy/AdvReac Type Severity Reaction Status Date / Time oxycodone AdvReac Severe tremors, Verified 01/29/24 11:22 numbness, itching metronidazole AdvReac Mild DIZZINESS Verified 01/29/24 11:22 Review of Systems Review of Systems Narrative: Positive for confusion, weakness, inability to swallow and eat. Negative for fevers, chills, sweats, chest pain, vomiting, bleeding, rashes, joint swelling, new allergies and sore throat. Exam Vital Signs (past 8 hours): - 02/21/24 10:14 02/21/24 10:14 02/21/24 10:30 Pulse Rate 97 H 96 H Respiratory Rate 23 20 Blood Pressure 115/57 L Pulse Oximetry 98 98 Oxygen Delivery Method Room Air 02/21/24 10:30 02/21/24 11:00 02/21/24 11:00 Pulse Rate 95 H Respiratory Rate 21 Blood Pressure 129/65 126/88 Pulse Oximetry 99 Oxygen Delivery Method 02/21/24 11:30 02/21/24 11:30 02/21/24 12:00 Pulse Rate 94 H 93 H Respiratory Rate 20 22 Blood Pressure 138/63 Pulse Oximetry 100 92 Oxygen Delivery Method 02/21/24 12:01 02/21/24 12:01 02/21/24 12:30 Pulse Rate 92 H Respiratory Rate 22 Blood Pressure 117/55 L 139/64 Pulse Oximetry 95 Oxygen Delivery Method 02/21/24 12:30 02/21/24 13:00 02/21/24 13:01 Pulse Rate 93 H 93 H Respiratory Rate 22 20 Blood Pressure 155/64 H Pulse Oximetry 97 97 Oxygen Delivery Method 02/21/24 13:01 02/21/24 13:30 02/21/24 13:31 Pulse Rate 93 H 92 H 93 H Respiratory Rate 18 21 19 Blood Pressure Pulse Oximetry 97 95 93 Oxygen Delivery Method 02/21/24 13:31 02/21/24 14:00 02/21/24 14:00 Pulse Rate 92 H Respiratory Rate 20 Blood Pressure 143/60 H 135/61 Pulse Oximetry 95 Oxygen Delivery Method 02/21/24 14:30 02/21/24 14:31 02/21/24 14:31 Pulse Rate 92 H 94 H Respiratory Rate 16 19 Blood Pressure 143/56 H Pulse Oximetry 93 93 Oxygen Delivery Method 02/21/24 15:00 02/21/24 15:00 02/21/24 15:30 Pulse Rate 93 H 92 H Respiratory Rate 22 21 Blood Pressure 144/58 H Pulse Oximetry 94 92 Oxygen Delivery Method 02/21/24 15:31 02/21/24 15:31 02/21/24 16:00 Pulse Rate 93 H 92 H Respiratory Rate 19 21 Blood Pressure 154/61 H Pulse Oximetry 92 94 Oxygen Delivery Method 02/21/24 16:01 02/21/24 16:01 02/21/24 16:30 Pulse Rate 93 H 96 H Respiratory Rate 18 23 Blood Pressure 164/61 H Pulse Oximetry 93 94 Oxygen Delivery Method 02/21/24 16:31 02/21/24 16:31 02/21/24 17:00 Pulse Rate 96 H 96 H Respiratory Rate 23 18 Blood Pressure 155/64 H Pulse Oximetry 94 94 Oxygen Delivery Method 02/21/24 17:01 02/21/24 17:01 02/21/24 17:30 Pulse Rate 97 H 96 H Respiratory Rate 24 14 Blood Pressure 133/57 L Pulse Oximetry 94 91 Oxygen Delivery Method 02/21/24 17:31 02/21/24 17:31 Pulse Rate 96 H Respiratory Rate 23 Blood Pressure 101/45 L Pulse Oximetry 91 Oxygen Delivery Method Oxygen Delivery Method Room Air Narrative Exam Narrative: The patient is alert but does not engage. She is confused and tangential. She does not participate in the history gathering without prompting in [place]ian from her family. Pupils are round and reactive to light and accommodation. Sclerae are pink and slightly icteric. Extraocular muscles appear to be intact Throat looks very dry without redness. There are no lymph nodes felt in the head, neck or supraclavicular area. There is no thyromegaly JVD is less than 6 cm No carotid bruits are heard Heart is regular rate and rhythm without murmur Lungs are clear to auscultation Abdomen is obese, there is significant firm enlargement in the right upper quadrant which is quite tender to palpation. Bowel sounds are active. Skin is not jaundiced. There are no rashes. Neurologic exam: The patient is tangential and confused. She has some word salad. Motor function appears to be diffusely weak symmetrically There is no tremor Cranial nerves appear to be functional. Objective Labs 02/21/24 10:06 02/21/24 11:22 Labs: Laboratory Results - last 24 hr 02/21/24 02/21/24 02/21/24 10:06 10:10 11:22 WBC 12.6 H RBC 5.16 Hgb 14.1 Hct 43.2 MCV 83.8 MCH 27.3 MCHC 32.6 RDW 18.7 H Plt Count 171 Neut % (Auto) 80.5 H Lymph % (Auto) 7.2 L [place] % (Auto) 11.5 Eos % (Auto) 0.1 L Baso % (Auto) 0.7 Neut # (Auto) 12540 H Lymph # (Auto) 900 L [place] # (Auto) 1400 H Eos # (Auto) 0 Baso # (Auto) 100 Sodium 142 Potassium 4.3 Chloride 112 H Carbon Dioxide 19 L BUN 109 H* Creatinine 1.70 H Estimated GFR 31 L BUN/Creatinine Ratio 64.1 H Glucose 82 Lactate 3.8 H Calcium 10.5 H Magnesium 2.9 H Total Bilirubin 2.3 H AST 447 H ALT 92 H Alkaline Phosphatase 103 Ammonia 26 Total Protein 6.3 Albumin 2.6 L Globulin 3.7 Albumin/Globulin Ratio 0.7 L Lipase 448 H Urine Color Yellow Urine Appearance Clear Urine pH 5.0 Ur Specific [place] 1.025 Urine Protein Negative Urine Glucose (UA) Negative Urine Ketones Negative Urine Occult Blood Negative Urine Nitrate Negative Urine Bilirubin Negative Urine Urobilinogen 0.2 Ur Leukocyte Esterase Negative Urine RBC None seen Urine WBC None seen Ur Squamous Epith Cells None seen Urine Bacteria None seen Ur Culture Indicated? Cult not indicated Vol Urine Centrifuged 10ml (spun) 02/21/24 12:13 WBC RBC Hgb Hct MCV MCH MCHC RDW Plt Count Neut % (Auto) Lymph % (Auto) [place] % (Auto) Eos % (Auto) Baso % (Auto) Neut # (Auto) Lymph # (Auto) [place] # (Auto) Eos # (Auto) Baso # (Auto) Sodium Potassium Chloride Carbon Dioxide BUN Creatinine Estimated GFR BUN/Creatinine Ratio Glucose Lactate 3.2 H Calcium Magnesium Total Bilirubin AST ALT Alkaline Phosphatase Ammonia Total Protein Albumin Globulin Albumin/Globulin Ratio Lipase Urine Color Urine Appearance Urine pH Ur Specific [place] Urine Protein Urine Glucose (UA) Urine Ketones Urine Occult Blood Urine Nitrate Urine Bilirubin Urine Urobilinogen Ur Leukocyte Esterase Urine RBC Urine WBC Ur Squamous Epith Cells Urine Bacteria Ur Culture Indicated? Vol Urine Centrifuged Assessment & Plan Assessment & Plan narrative: This is a 78-year-old female with a history of hepatic steatosis, hypertension, elevated BUN, GERD and hypothyroidism who presents with a new diagnosis of cholangiocarcinoma. She apparently collapsed about 3 weeks ago and was taken to the hospital in [place] where an abdominal needle biopsy was done that documented her new diagnosis of cholangiocarcinoma with kidney/liver metastasis. She was in the hospital for about 10 days and has been home now for about 4 days. Family bring her in because of increasing confusion, weakness and inability to swallow/eat. Metastatic cholangiocarcinoma with rapidly progressive weakness and dysphagia. -her disease process appears to be rapidly progressive. -bilirubin 2.3, AST 447, lactic acid level 3.2 -hospice house in [facility] is considering admission as early as tomorrow but have not formally accepted her. -morphine sublingual and atropine drops for excess secretions are ordered. -IV fluid support to correct the prerenal azotemia may be helpful with comfort and communication abilities with her family. Severe dehydration with prerenal azotemia and acute kidney injury -lactic acid level 3.2 with BUN 109 and creatinine 1.70 -severe dysphagia related to her cholangiocarcinoma with reports of recent normal EGD in [place]. -IV fluid support to correct prerenal azotemia may be helpful with communication and comfort interactions with family. End of life care -morphine sublingual -atropine eye drops -possible transfer to hospice house -stop IV fluid if no comfort benefit seen. Hypothyroidism -hold home medication Her daughter is her decision maker. Chemical DVT prevention is not appropriate for end of life comfort care. Time-Based Coding :: [TOTAL MINUTES] spent with patient and on the chart (including review of chart, obtaining history, exam, reviewing outside data, placing orders, documenting exam and treatment plan, and counseling patient) on [DATE].
[2024-02-21] MEDS: DEXTROSE 5%-0.45% NS 1,000 ML 100 ML IV (18:57)
[2024-02-22] MEDS: MORPHINE 2 MG/ML INJ 1 MG IV ×2 (04:38→09:23)
[2024-02-22] MEDS: DEXTROSE 5%-0.45% NS 1,000 ML 100 ML IV ×2 (04:44→14:51)
--- NOTE | 2024-02-22 07:06 | PM.PN.1 ---
Subjective Subjective Date Patient Seen: 02/22/24 Interval history: She is seen today to follow-up her cholangiocarcinoma, decreased mental status and abdominal pain. She continues to be treated with morphine and with the IV fluid overnight is more alert and engaged. She is speaking more but is not swallowing. [facility] has accepted her for admission once the paperwork has been completed. This is discussed with her daughter. Exam Vital Signs (past 8 hours): Oxygen Delivery Method Room Air Oxygen Flow Rate 0 Narrative Exam Narrative: Alert and oriented to name. Heart is regular rate and rhythm without murmur Lungs are clear to auscultation bilaterally Extremities have no ankle edema Abdomen is soft with significant tenderness in the right upper quadrant where there is fullness present. Objective Labs 02/21/24 10:06 02/21/24 11:22 Labs: Laboratory Results - last 24 hr 02/21/24 02/21/24 02/21/24 10:06 10:10 11:22 WBC 12.6 H RBC 5.16 Hgb 14.1 Hct 43.2 MCV 83.8 MCH 27.3 MCHC 32.6 RDW 18.7 H Plt Count 171 Neut % (Auto) 80.5 H Lymph % (Auto) 7.2 L [place] % (Auto) 11.5 Eos % (Auto) 0.1 L Baso % (Auto) 0.7 Neut # (Auto) 86865 H Lymph # (Auto) 900 L [place] # (Auto) 1400 H Eos # (Auto) 0 Baso # (Auto) 100 Sodium 142 Potassium 4.3 Chloride 112 H Carbon Dioxide 19 L BUN 109 H* Creatinine 1.70 H Estimated GFR 31 L BUN/Creatinine Ratio 64.1 H Glucose 82 Lactate 3.8 H Calcium 10.5 H Magnesium 2.9 H Total Bilirubin 2.3 H AST 447 H ALT 92 H Alkaline Phosphatase 103 Ammonia 26 Total Protein 6.3 Albumin 2.6 L Globulin 3.7 Albumin/Globulin Ratio 0.7 L Lipase 448 H Urine Color Yellow Urine Appearance Clear Urine pH 5.0 Ur Specific [place] 1.025 Urine Protein Negative Urine Glucose (UA) Negative Urine Ketones Negative Urine Occult Blood Negative Urine Nitrate Negative Urine Bilirubin Negative Urine Urobilinogen 0.2 Ur Leukocyte Esterase Negative Urine RBC None seen Urine WBC None seen Ur Squamous Epith Cells None seen Urine Bacteria None seen Ur Culture Indicated? Cult not indicated Vol Urine Centrifuged 10ml (spun) 02/21/24 12:13 WBC RBC Hgb Hct MCV MCH MCHC RDW Plt Count Neut % (Auto) Lymph % (Auto) [place] % (Auto) Eos % (Auto) Baso % (Auto) Neut # (Auto) Lymph # (Auto) [place] # (Auto) Eos # (Auto) Baso # (Auto) Sodium Potassium Chloride Carbon Dioxide BUN Creatinine Estimated GFR BUN/Creatinine Ratio Glucose Lactate 3.2 H Calcium Magnesium Total Bilirubin AST ALT Alkaline Phosphatase Ammonia Total Protein Albumin Globulin Albumin/Globulin Ratio Lipase Urine Color Urine Appearance Urine pH Ur Specific [place] Urine Protein Urine Glucose (UA) Urine Ketones Urine Occult Blood Urine Nitrate Urine Bilirubin Urine Urobilinogen Ur Leukocyte Esterase Urine RBC Urine WBC Ur Squamous Epith Cells Urine Bacteria Ur Culture Indicated? Vol Urine Centrifuged [facility] Medical History (Updated 02/21/24 @ 18:05 by Mendez Alegre MD) Bile duct cancer Constipation UTI (urinary tract infection) Elevated serum free T4 level Elevated TSH Abdominal wall bulge Keratotic lesion Elevated red blood cell count Varicose veins of bilateral lower extremities with pain Hepatic steatosis Pre-diabetes Gas pain Hypertriglyceridemia Left shoulder pain Left eye pain Hypertension Temporal pain Muscle spasm Low back pain Neck pain Left upper quadrant pain Right upper quadrant abdominal pain (10/29/18) Abnormal ARL-bz-[id number] ratio Elevated BUN Elevated blood pressure reading in office without diagnosis of hypertension Upper respiratory infection, viral Uterine mass Uterine mass Lower urinary tract symptoms (LUTS) Sleep pattern disturbance History of headache Colitis Pelvic pain Endometrial mass Morbid obesity Postmenopausal Hemorrhoids Irritable bowel syndrome Hx of varicose veins (Unknown) Cataract, left eye (~05/2012) Migraines (Unknown) GERD (gastroesophageal reflux disease) (Unknown) Positive PPD (Unknown) Hypothyroidism (Unknown) IBS (irritable bowel syndrome) (Unknown) Surgical History Hx of surgical procedure (02/2017) Family History Brother Other specified diabetes mellitus with unspecified complications Father Cancer Mother Cancer Sister Cancer Social History household members: family Smoking Status: Never smoker second hand exposure: Yes (only when [place] the [place], but I go to the non-smoking area.) alcohol intake: never substance use type: does not use Assessment & Plan Assessment & Plan narrative: This is a 78-year-old female with a history of hepatic steatosis, hypertension, elevated BUN, GERD and hypothyroidism who presents with a new diagnosis of cholangiocarcinoma. She apparently collapsed about 3 weeks ago and was taken to the hospital in [place] where an abdominal needle biopsy was done that documented her new diagnosis of cholangiocarcinoma with kidney/liver metastasis. She was in the hospital for about 10 days and has been home now for about 4 days. Family bring her in because of increasing confusion, weakness and inability to swallow/eat. Metastatic cholangiocarcinoma with rapidly progressive weakness and dysphagia. -her disease process appears to be rapidly progressive. -bilirubin 2.3, AST 447, lactic acid level 3.2 -hospice house in [facility] has accepted her pending completion of the paperwork. -morphine sublingual and atropine drops for excess secretions are continued. -IV fluid support to correct the prerenal azotemia has been helpful with comfort and communication abilities with her family. Severe dehydration with prerenal azotemia and acute kidney injury -lactic acid level 3.2 with BUN 109 and creatinine 1.70 -severe dysphagia related to her cholangiocarcinoma with reports of recent normal EGD in [place]. -IV fluid support to correct prerenal azotemia has been helpful with communication and comfort interactions with family. This will be stopped soon. End of life care -morphine sublingual -atropine eye drops -pending transfer to hospice house -stop IV fluid soon Hypothyroidism -hold home medication Her daughter is her decision maker. Chemical DVT prevention is not appropriate for end of life comfort care. Time-Based Coding :: [TOTAL MINUTES] spent with patient and on the chart (including review of chart, obtaining history, exam, reviewing outside data, placing orders, documenting exam and treatment plan, and counseling patient) on [DATE]. Quality VTE Deep Vein Thrombosis/Pulmonary Embolism Present on Admission: No
[2024-02-22 08:00] VITALS: BP 124/65; PULSE 93; RESP 16; TEMP 35.8; O2SAT 95
[2024-02-22] MEDS: MORPHINE 2 MG/ML INJ IV ×2 (12:54→20:58)
--- NOTE | 2024-02-22 14:10 | CM.DPC ---
DCP Cont. Reviewed EMR and team rounds for status updates. Worked pt dtr all day re: plan for continued comfort care, as pt is not immentently dying, but per Hospitalist, likely has another 2-3 weeks before would be anticipated. Dtr, Hannah (DPOA) cannot afford caregivers or to pay for room and board in a SNF with Hospice services, and she and her brother both work and are not getting the support from their employer to take time off to care for their mother. Received call from [facility] [place] [facility], they can accept pt. Completed the intake forms and consents with dtr Hannah, faxed back to [email or web address] (). Hannah expressed concern that on the form, it stated that patients are required to pay $475/day for room and board. BULLARD OPERATOR called back Valerie at the , explained that pt and family have no money, no resources, and are even worried about paying their rent due to having missed so much work taking care of her. Valerie shared that with people in this situation, that once they are there the BULLARD OPERATOR can help them apply for a naresh from the [facility], which will most likely be approved. This BULLARD OPERATOR expressed concern that Hannah will never send her mother up there unless she had more of a guarantee, and that she isn't even going to be able to cover the cost of the copay from the BLS transport it will take to get her there. They agreed to have their medical social consultant call Hannah today at 2:00pm to do the naresh application over the phone, and we will know by tomorrow the outcome. They also stated that pt's care there will be covered 100% under Medicare under [employer] for the first 2-days anyway. Updated Hannha on this plan, she was very grateful for all of this coordination and assistance. D/c goal is for tomorrow/Wednesday 02/22. We will need to arrange for BLS transport once the plan is finalized in the morning. This BULLARD OPERATOR also reassured Hannah that if she had a co-pay after Medicare billing was completed (she shouldn't), and owed up to $200, to please bring the bill to this BULLARD OPERATOR to apply for our own Foundation assistance through the [employer].
--- NOTE | 2024-02-22 15:15 | PC.NURSE ---
Addendum entered by Kurt Del Cid R.N. 02/22/24 15:24: haynes placed by [facility], RETURNED 600MLS DARK URINE. Original Note: patients daughter is requesting a haynes be placed now for mothers comfort,will place haynes
[2024-02-23 01:00] VITALS: BP 114/61; PULSE 92; RESP 14; TEMP 36.7; O2SAT 95
[2024-02-23] MEDS: DEXTROSE 5%-0.45% NS 1,000 ML 100 ML IV (01:00)
--- NOTE | 2024-02-23 04:21 | PC.NURSE ---
Patient is lethargic, sleeping on and off, minimal speech, does not answer questions, no po intake. Morphine 2 mg IV given at 2100 for signs of pain with good relief. Patient has been showing signs of pain during the night, however patient's daughter is in the room and is refusing all pain medication, stating she's fine, she doesn't need any. This RN explained the signs of pain that are being exhibited, ie grimacing, tenseness, guarding. Patient's daughter continued to refuse pain meds and insisted that patient is not grimacing, she just looks that way because she doesn't have her dentures in. Patient's daughter is also refusing any turns. Patient has generalized edema and increased pitting edema to karmen legs and feet. Schrader draining concentrated urine. IVF infusing at 100cc/hr as ordered.
[2024-02-23] MEDS: MORPHINE 2 MG/ML INJ IV ×3 (06:09→14:29)
--- NOTE | 2024-02-23 06:23 | PC.NURSE ---
Patient appears uncomfortable, daughter agreed to catheter care and a turn and for patient to be pre-medicated. Morphine 2 mg IV given. Catheter care done, patient repositioned, buttocks skin intact. Patient now appears comfortable. 275cc concentrated urine out for shift.
--- NOTE | 2024-02-23 07:13 | PM.DS.1 ---
History of Present Illness History of Present Illness Chief complaint: Poss. UTI Narrative: This is a 78-year-old female with a history of hepatic steatosis, hypertension, elevated BUN, GERD and hypothyroidism who presents with a new diagnosis of cholangiocarcinoma. She apparently collapsed about 3 weeks ago and was taken to the hospital in [place] where an abdominal needle biopsy was done that documented her new diagnosis of cholangiocarcinoma with kidney/liver metastasis. She was in the hospital for about 10 days and has been home now for about 4 days. Family bring her in because of increasing confusion, weakness and inability to swallow/eat. She had been recommended to go to a alf facility but they felt they could manage her at home until this disease process progressed. She had been hoping to participate in chemotherapy treatments but has been waiting for a referral to Oncology in [place]. Her admission today is for comfort care, pending possible transfer to hospice house or tentatively end of life care at a alf facility. Her bilirubin level is 2.3 with an AST of 447 and an ALT of 92. The lactic acid level is 3.2 and the calcium is 10.5. The white blood count is 12.6 with a hemoglobin of 14.1. The BUN is 109 with a creatinine of 1.70. She had been receiving morphine in the hospital but on discharge was only on hydrocodone. She denies abdominal pain, participates/engages very little with the exam and interview, but has a very tender area of fullness in the right upper quadrant. Discharge Providers Provider Date of admission: 02/21/24 17:59 Discharge Date: 02/23/24 Primary care physician: Shashi Mesa DO Consults: 02/21/24 11:27 Consult to [facility] - Welding Machine Operator/Tender Stat Comment: Welding Machine Operator/Tender Consult needed for:: Other reason (Comment) Comment: End of life care and and management with new news of stage 4 CA. 02/21/24 12:35 Consult to [facility] - Welding Machine Operator/Tender Stat Comment: Welding Machine Operator/Tender Consult needed for:: Other reason (Comment) Comment: Full comfort hospice care in a [facility] setting 02/21/24 18:08 Consult to Discharge Planning Routine Comment: 02/21/24 18:27 Consult to Discharge Planning Routine Comment: Discharge provider: Mendez Alegre MD Summary Hospital Course Discharge Diagnosis: This is a 78-year-old female with a history of hepatic steatosis, hypertension, elevated BUN, GERD and hypothyroidism who presents with a new diagnosis of cholangiocarcinoma. She apparently collapsed about 3 weeks ago and was taken to the hospital in [place] where an abdominal needle biopsy was done that documented her new diagnosis of cholangiocarcinoma with kidney/liver metastasis. She was in the hospital for about 10 days and has been home now for about 4 days. Family bring her in because of increasing confusion, weakness and inability to swallow/eat. Metastatic cholangiocarcinoma with rapidly progressive weakness and dysphagia. -her disease process appears to be rapidly progressive. -bilirubin 2.3, AST 447, lactic acid level 3.2 -hospice house in [facility] has accepted her pending completion of the paperwork. -morphine sublingual and atropine drops for excess secretions are continued. -IV fluid support to correct the prerenal azotemia has been helpful with comfort and communication abilities with her family. Severe dehydration with prerenal azotemia and acute kidney injury -lactic acid level 3.2 with BUN 109 and creatinine 1.70 -severe dysphagia related to her cholangiocarcinoma with reports of recent normal EGD in [place]. -IV fluid support to correct prerenal azotemia has been helpful with communication and comfort interactions with family. This will be stopped soon. End of life care -morphine sublingual -atropine eye drops -pending transfer to hospice house -stop IV fluid soon Hypothyroidism -hold home medication Her daughter is her decision maker. Chemical DVT prevention is not appropriate for end of life comfort care. Status at Discharge Cognitive/behavioral status at discharge: confused Functional status at discharge: bed bound Overall status at discharge: patient is not back to baseline Exam Vital Signs (past 8 hours): - 02/23/24 01:00 Temperature 98.0 F Pulse Rate 92 H Respiratory Rate 14 Blood Pressure 114/61 Pulse Oximetry 95 Oxygen Flow Rate 0 Oxygen Delivery Method Room Air Oxygen Flow Rate 0 Narrative Exam Narrative: She is alert but not oriented. She does not engage. At 1 point she makes hand signals to her daughter that the topic or the volume of her voice is too loud and so the conversation continues in the hallway. Heart is regular rate and rhythm with no murmur She has 1+ bilateral pedal edema Abdomen is tender in the right upper quadrant Objective Labs 02/21/24 10:06 02/21/24 11:22 [facility] Medical History (Updated 02/21/24 @ 18:05 by Mendez Alegre MD) Bile duct cancer Constipation UTI (urinary tract infection) Elevated serum free T4 level Elevated TSH Abdominal wall bulge Keratotic lesion Elevated red blood cell count Varicose veins of bilateral lower extremities with pain Hepatic steatosis Pre-diabetes Gas pain Hypertriglyceridemia Left shoulder pain Left eye pain Hypertension Temporal pain Muscle spasm Low back pain Neck pain Left upper quadrant pain Right upper quadrant abdominal pain (10/29/18) Abnormal [id number] ratio Elevated BUN Elevated blood pressure reading in office without diagnosis of hypertension Upper respiratory infection, viral Uterine mass Uterine mass Lower urinary tract symptoms (LUTS) Sleep pattern disturbance History of headache Colitis Pelvic pain Endometrial mass Morbid obesity Postmenopausal Hemorrhoids Irritable bowel syndrome Hx of varicose veins (Unknown) Cataract, left eye (~05/2012) Migraines (Unknown) GERD (gastroesophageal reflux disease) (Unknown) Positive PPD (Unknown) Hypothyroidism (Unknown) IBS (irritable bowel syndrome) (Unknown) Surgical History Hx of surgical procedure (02/2017) Family History Brother Other specified diabetes mellitus with unspecified complications Father Cancer Mother Cancer Sister Cancer Social History household members: family Smoking Status: Never smoker second hand exposure: Yes (only when I go to the casino, but I go to the non-smoking area.) alcohol intake: never substance use type: does not use Discharge Plan Discharge Plan Patient Disposition: Released, Other Other facility: [facility] Under care of provider: Hospice Brokerage Manager Discharge orders & Medications Discharge Orders: Discharge (Order); Ordered 02/23/24 Ordered By: Mendez Alegre Prescriptions: New morphine concentrate 10 mg/0.5 mL Syringe 10 mg PO Q1H PRN (Reason: Pain/Dyspnea) Qty: 1 0RF atropine 1 % Drops 2 drops sublingual Q2HR PRN (Reason: Secretions) Qty: 1 0RF Discontinued hydrochlorothiazide 25 mg tablet 25 mg PO DAILY Qty: 90 3RF Rx Instructions: Take 1 tab daily para pression ibuprofen 800 mg tablet 800 mg PO Q8H PRN (Reason: pain) Qty: 90 5RF levothyroxine 112 mcg tablet 112 mcg PO DAILY Qty: 90 3RF Rx Instructions: TAKE 1 TABLET DAILY ON AN EMPTY STOMACH FOR THYROID docusate sodium 100 mg capsule 100 mg PO BID Qty: 60 0RF No Action (DME) Compression Stockings Large See Rx Instructions .Route .MEDSUPPLY Qty: 1 0RF Rx Instructions: Use daily to help prevent swelling and pain in legs Follow up/Referrals: Shashi Mesa DO [Primary Care Provider] - Diet/Activity/Treatments Diet: Diet as Tolerated Discharge Data Primary Care Provider: Shashi Mesa Quality VTE Deep Vein Thrombosis/Pulmonary Embolism Present on Admission: No
[2024-02-23 08:53] VITALS: BP 134/68; PULSE 83; RESP 16; TEMP 36.7; O2SAT 95
--- NOTE | 2024-02-23 10:28 | PC.NURSE ---
Addendum entered by Liana Hebert R.N. 02/23/24 15:24: pt medicated with 2mg morphine IVP, BLS transport here pt going to [facility]-family and friends here saying goodbye, family in route facility. Original Note: 0850 pt awake answering yes no denies pain or repositioning. IVF stopped-dtr in room 1020 -pt having some pain around abd area dtr requesting pain medpt gimacing and answers yesto pain-morphine 2mg ivp given-
--- NOTE | 2024-02-23 12:59 | CM.DPC ---
DCP Cont. Reviewed EMR and team rounds for status updates. Met with dtr, Hannah, briefly early this am, and again met with Hannah, her son, and brother to discuss their questions and concerns about what to expect at the Hospice House, and also reassured Hannah and family that she was not going to have any out of pocket, and that the RESIDENTIAL INSTALLER at the Hospice House would continue to finalize the naresh to the [facility] for room and board, and that Medicare will pay for the first 2-days under GIP status. RESIDENTIAL INSTALLER also provided information about what to expect with signs/symptoms of her continued dying process, and offered anticpatory gried support. Family express feeling much better and are relieved that everything is going to be ok, and she is going to be all settled. BLS transport scheduled for 2:45pm.
== END 2024-02-23 15:20 | disposition hospice, home (50) | DRG 435 ==
LOC: ED 17:59 → AC 02-22 07:46
PROVIDERS: Admitting Provider Family Medicine; Emergency Provider Emergency Medicine; PCP Family Medicine; Referring Provider Emergency Medicine; Visit Provider Family Medicine
DX: C22.1 Intrahepatic bile duct carcinoma (principal); G93.41 Metabolic encephalopathy; C79.00 Secondary malignant neoplasm of unspecified kidney and renal pelvis; N17.9 Acute kidney failure, unspecified; R13.10 Dysphagia, unspecified; E86.0 Dehydration; R79.89 Other specified abnormal findings of blood chemistry; E03.9 Hypothyroidism, unspecified; R60.1 Generalized edema; Z51.5 Encounter for palliative care
CPT/HCPCS: 36415; 80053; 81001; 82140; 83605; 83690; 83735; 85025; 96361; 96374; 99284; J1171; J2270